=== PATIENT | male | born 1940 | race Two or more races ===

== ENCOUNTER 2018-06-11 11:38 | Inpatient (IN) | payer OTHER ==
[2018-06-11 11:47] VITALS: BMI 37.5
--- NOTE | 2018-06-11 11:56 | PDOC ---
History of Present Illness - General Chief Complaint: Shortness of Breath Stated Complaint: ASTHMA Time Seen by Provider: 06/11/18 11:55 - History of Present Illness Initial Comments: 06/11/18 12:17 The patient is a 77 year old male with a history of asthma and HTN who presents for evaluation of shortness of breath. The patient reports a 2 week history of shortness of breath at rest with worsening dyspnea on exertion. He states that he cannot walk a few feet without getting short of breath prompting his presentation to the ED for further evaluation. He states that he has been using his inhaler without any improvement in his symptoms. He denies similar symptoms in the past. He reports an associated non-productive cough but otherwise denies fevers, chills, chest pain, nausea, vomiting, abdominal pain, lower extremity swelling, or changes with urination or bowel movements. Past History - Past Medical History Allergies/Adverse Reactions: Allergies Allergy/AdvReac Type Severity Reaction Status Date / Time No Known Allergies Allergy Verified 06/11/18 11:40 - Suicide/Smoking/Psychosocial Hx Smoking History: Never smoked Review of Systems - Review of Systems Comments:: 06/11/18 12:21 Constitutional: No fevers, chills, fatigue, malaise HEENT: No Rhinorrhea, nasal congestion, visual changes Cardiovascular: No chest pain, syncope, palpitations, lightheadedness Respiratory: SOB, Cough. No Hemoptysis, Gastrointestinal: No Abdominal pain, Nausea, Vomiting, Constipation, Diarrhea, Melena Genitourinary: No Dysuria, Frequency, Urgency, Hesitancy, Hematuria, Flank pain Musculoskeletal: No Myalgia, arthralgia Skin: No rashes, itching, bruising, pallor Neurologic: No Headache, Dizziness, Numbness, Weakness, or Tingling Psychiatric: No Hallucinations. No SI or HI *Physical Exam - Vital Signs Last Vital Signs Temp Pulse Resp BP Pulse Ox 98.6 F 75 22 H 171/100 H 99 06/11/18 11:45 06/11/18 11:45 06/11/18 11:45 06/11/18 11:45 06/11/18 11:45 - Physical Exam Comments: 06/11/18 12:21 General Appearance: Nourished. No Apparent Distress HEENT: No Pharyngeal Erythema, Tonsillar Exudate, Tonsillar Erythema Neck: No Cervical Lymphadenopathy Respiratory/Chest: Lungs Clear, Mild diffuse end expiratory wheezing noted on exam. No Crackles, Rales, Rhonchi, Cardiovascular: Regular Rhythm, Regular Rate. No Murmur, Gallops, Rubs Gastrointestinal/Abdominal: Normal Bowel Sounds, Soft. No Guarding, Rebound, Tenderness Musculoskeletal: No CVA Tenderness Extremity: Normal Capillary Refill Integumentary: Normal Color, Dry, Warm Neurologic: Fully Oriented, Alert, Normal Mood/Affect, Normal Response, Heart Score/ECG Review #1 ECG reviewed & interpreted by me at: 12:51 General ECG Interpretation: Sinus Rhythm, Normal Rate, No acute ischemic changes 06/11/18 12:51 HR 92 QRS 152 QTc 549 Right bundle branch block Left posterior fasicular block ED Treatment Course - LABORATORY CBC & Chemistry Diagram: 06/11/18 12:43 06/11/18 12:43 Medical Decision Making - Medical Decision Making 06/11/18 12:22 The patient is a 77 year old male with a history of asthma and HTN who presents for evaluation of shortness of breath. Differential includes but is not limited to: COPD exacerbation, Asthma exacerbation, CHF, ACS, Pneumonia, Infectious, Metabolic Derangement. Given the patient's history and physical exam, we will obtain a cbc, cmp, troponin, bnp, ekg, chest plain film to evaluate further for possible etiologies. We will treat the patient with duonebs and solumedrol in the meantime and continue to monitor and reassess while here in the ED. 06/11/18 15:23 CBC, cmp are unremarkable. Troponin is 0.04. BNP is elevated to 3100. Chest plain film is unremarkable. We believe the patient requires admission for further work up and management as well as cardiology consultation. We discussed the case with Dr. Rizvi who accepted the patient for admission. *DC/Admit/Observation/Transfer Diagnosis at time of Disposition: Shortness of breath, Dyspnea on exertion - Discharge Dispostion Condition at time of disposition: Stable Decision to Admit order: Yes - Referrals - Patient Instructions - Post Discharge Activity
[2018-06-11] MEDS ORDERED: ALBUTEROL SO4 2.5/IPRATROPIUM 0.5 INH SOL 3 ML VIAL.NEB. NEB ONE ×3 (12:08→13:11)
[2018-06-11 12:49] LABS: BASO % 1.8 % (0-2.0); EOS % 4.3 % (0-4.5); HEMATOCRIT 42.3 % (35.4-49); HEMOGLOBIN 13.7 GM/dL (11.7-16.9); LYMPH % 33.4 % (8-40); MCH 26.3 pg (25.7-33.7); MCHC 32.3 g/dl (32.0-35.9); MEAN CELL VOLUME 81.4 fl (80-96); MEAN PLT VOLUME 10.2 fl (7.5-11.1); MONO % 10.8 % (3.8-10.2); NEUT % 49.7 % (42.8-82.8); PLATELET COUNT 244 K/MM3 (134-434); RDW 15.3 % (11.9-15.9)
[2018-06-11] MEDS ORDERED: methylPREDNISolone NA SUCC 125 MG/2 ML VIAL IVPUSH ONE (12:57)
[2018-06-11 13:07] LABS: VENOUS PH 7.42 (7.32-7.42)
[2018-06-11] MEDS ORDERED: methylPREDNISolone NA SUCC 125 MG/2 ML VIAL ONE (13:12)
[2018-06-11 13:15] LABS: ALBUMIN 3.6 g/dl (3.4-5.0); ALK PHOS 84 U/L (45-117); ANION GAP 6 MMOL/L (8-16); BILIRUBIN,TOTAL 1.2 mg/dL (0.2-1); BLOOD UREA NITROGEN 12 mg/dL (7-18); CALCIUM 8.5 mg/dL (8.5-10.1); CHLORIDE 108 mmol/L (98-107); CO2 26 mmol/L (21-32); GLUCOSE,RANDOM 102 mg/dL (74-106); N-TERMINAL BNP 3104.7 pg/ml (5-450); POTASSIUM 4.4 mmol/L (3.5-5.1); SGOT/AST 31 U/L (15-37); SGPT/ALT 51 U/L (13-61); SODIUM 140 mmol/L (136-145); TOT PROT 6.9 g/dl (6.4-8.2)
--- NOTE | 2018-06-11 13:43 | PDOC ---
Attending Attestation - Medical Decision Making 06/11/18 14:04 Imaging: Chest PA & LAT Reported by: Dr. Moody Impression: No acute pathology. Mild hyperaeration. Large heart. No prior for comparison <Ebony Dong - Last Filed: 06/11/18 14:04> - Resident Resident Name: German Issa - ED Attending Attestation I have performed the following: I have examined & evaluated the patient, The case was reviewed & discussed with the resident, I agree w/resident's findings & plan - HPI HPI: 06/11/18 14:05 The patient is a 77 year old male with a history of asthma and HTN who presents for evaluation of shortness of breath and worsening dyspnea on exertion for the past two weeks. The patient reports he cannot walk a couple steps without becoming short of breath. Patient states he went to a clinic recently and was prescribed an inhaler without any improvement. The patient admits to nonproductive cough but denies chest pain, headache and dizziness. Denies fever, chills, nausea, vomit, diarrhea and constipation. Denies dysuria, frequency, urgency and hematuria. Allergies: NKA Past surgical history: None reported. Social history: No reported alcohol, drug or cigarette use. PCP: Dr. Kyler Riggs - Physicial Exam PE: 06/11/18 14:05 NAD, well appearing, MMM, nl conjunctiva, anicteric; neck supple. no jvd. + bilateral diffuse wheezing. no respiratory distress. RRR, abdomen soft nontender. GOTTI x4, no focal neuro deficits. 2+ pretibial peripheral edema. normal color for ethnicity, WWP. - Medical Decision Making 06/11/18 13:43 I, Caterina Yanes MD, attest that this document has been prepared under my direction and personally reviewed by me in its entirety. I further attest, that it accurately reflects all work, treatment, procedures and medical decision -making performed by me. Bobby 77 year old male with a history of asthma and HTN who presents for evaluation of shortness of breath with exertion x 2 weeks. DDx. asthma, CHF, pulmonary edema, heart failure, ACS, pleurisy, metabolic derangements, viral syndrome, bronchitis, pneumonia. Vital signs reviewed, mild tachypnea, but no overt respiratory distress, normal sats on RA Prior notes reviewed, including admissions, discharges and consultations. laboratory results and imaging reviewed, basic labs and lytes wnl, notable for neg trops, elevated BNP >3000, no priors. VBG normal, no acid base derangements. CXR_cardiomegaly, no pulmonary edema or infiltrate EKG PACS, sinus rhythm, left posterior fascicular block, P waves in variable morphology. no interval abnormalities, narrow QRS, ST segments and morphology normal. Nonspecific T wave abnormalities ED course: no acute events, remained stable and well appearing. however, was diffusely wheezing, given duonebs and IV steroids. no abx for now, no fevers. Admit for GARCIA workup, eval for cardiomegaly, formal comprehensive echo, new onset heart failure with findings and abnormal EKG. Tele monitoring, IP cards cs. Discussed results and management plan with pt and family member at bedside, agree with impression and plan admit to Dr Riggs/Dr Rizvi service. 06/11/18 15:07 <Caterina Yanes - Last Filed: 06/11/18 15:08> Heart Score/ECG Review - ECG Impressions Comment:: 06/11/18 14:09 EKG PACS, sinus rhythm, left posterior fascicular block, P waves in variable morphology. no interval abnormalities, narrow QRS, ST segments and morphology normal. Nonspecific T wave abnormalities <Caterina Yanes - Last Filed: 06/11/18 15:08>
[2018-06-11] MEDS ORDERED: ACETAMINOPHEN 325 MG TABLET (FP) PO PRN (14:53)
[2018-06-11] MEDS ORDERED: ONDANSETRON *ODT* 4 MG TABLET SL PRN (14:53)
[2018-06-11] MEDS ORDERED: ALBUTEROL SO4 2.5/IPRATROPIUM 0.5 INH SOL 3 ML VIAL.NEB. NEB PRN (14:53)
--- NOTE | 2018-06-11 16:27 | CON.CARD ---
Consult Consult Specialty:: Cardiology - History of Present Illness Chief Complaint: SOB History of Present Illness: 77 M asthma and HTn w 10 days of dyspnea cough with clear phlegm and orthopnea. Admitted with unresolved symptoms. No chest pain or palpitations. Symptoms improved with nebs CXR shows cardiomegally and has elevated BNP - History Source History Provided By: Patient Limitations to Obtaining History: No Limitations - Past Medical History Cardio/Vascular: Yes: HTN Pulmonary: Yes: Asthma - Smoking History Smoking history: Never smoked Home Medications - Allergies Allergies/Adverse Reactions: Allergies Allergy/AdvReac Type Severity Reaction Status Date / Time No Known Allergies Allergy Verified 06/11/18 11:40 Review of Systems - Review of Systems Constitutional: reports: Fever, Loss of Appetite HENT: reports: No Symptoms Neck: reports: No Symptoms Cardiovascular: reports: Shortness of Breath Respiratory: reports: Cough, Exercise Intolerance, SOB, SOB on Exertion Gastrointestinal: reports: No Symptoms Genitourinary: reports: No Symptoms Vital Signs: Vital Signs Temperature 98.6 F 06/11/18 11:45 Pulse Rate 75 06/11/18 11:45 Respiratory Rate 22 H 06/11/18 11:45 Blood Pressure 171/100 H 06/11/18 11:45 O2 Sat by Pulse Oximetry (%) 99 06/11/18 11:45 Constitutional: Yes: Well Nourished, No Distress, Calm Eyes: Yes: Conjunctiva Clear, EOM Intact HENT: Yes: Atraumatic, Normocephalic Neck: Yes: Supple, Trachea Midline Respiratory: Yes: Regular, CTA Bilaterally Gastrointestinal: Yes: Normal Bowel Sounds Cardiovascular: Yes: Regular Rate and Rhythm JVD: No Carotid Bruit: No Heart Sounds: Yes: S1, S2 Murmur: No: Systolic Murmur, Diastolic Murmur Edema: Yes Edema: LLE: Trace, RLE: Trace - Other Data Labs, Other Data: CBC, BMP 06/11/18 12:43 06/11/18 12:43 Troponin, BNP 06/11/18 12:43 Troponin I 0.04 B-Natriuretic Peptide 3104.7 H Troponin, BNP 06/11/18 12:43 Troponin I 0.04 B-Natriuretic Peptide 3104.7 H NSR RBBB fusion beats Imaging - Results Chest X-ray: Report Reviewed Problem List - Problems (1) Shortness of breath Code(s): R06.02 - SHORTNESS OF BREATH Assessment/Plan Prior HTN and asthma history. 10 days of dyspnea and orthopnea Exam with mild edema. On CXR noted CMG with clear lungs and elevated BNP level. Diurese with lasix 20mg qd Control HTN Echocardiogram [facility] on telem
[2018-06-11] MEDS ORDERED: LABETALOL HCL 5 MG/1 ML (100MG/20 ML VIAL) IVPUSH ONE (17:29)
[2018-06-11] MEDS ORDERED: LABETALOL HCL 5 MG/1 ML (200MG/40ML VIAL) IVPB ONE (17:32)
[2018-06-11] MEDS ORDERED: methylPREDNISolone NA SUCC 40 MG/1 ML VIAL ONE (17:35)
[2018-06-11] MEDS: methylPREDNISolone NA SUCC 40 MG/1 ML VIAL IVPUSH SCH (17:36)
[2018-06-11] MEDS: HEPARIN NA (PORCINE) 5,000 UNITS/ML 1ML VIAL SQ SCH (22:05)
[2018-06-12] MEDS: methylPREDNISolone NA SUCC 40 MG/1 ML VIAL IVPUSH SCH ×3 (03:00→17:49)
[2018-06-12] MEDS: FUROSEMIDE 40 MG/4 ML INJECTABLE VIAL IVPUSH SCH ×2 (05:47→14:50)
[2018-06-12] MEDS ORDERED: FUROSEMIDE 40 MG/4 ML INJECTABLE VIAL IVPUSH SCH (06:00)
[2018-06-12 09:50] LABS: HEMATOCRIT 43.1 % (35.4-49); HEMOGLOBIN 13.5 GM/dL (11.7-16.9); MCH 25.5 pg (25.7-33.7); MCHC 31.4 g/dl (32.0-35.9); MEAN PLT VOLUME 9.5 fl (7.5-11.1); PLATELET COUNT 236 K/MM3 (134-434); RBC 5.32 M/mm3 (4.00-5.60); RDW 15.3 % (11.9-15.9); WHITE BLOOD COUNT 5.9 K/mm3 (4.0-10.0)
[2018-06-12] MEDS ORDERED: PNEUMOC 13-VAL CONJ-DIP CRM/PF 0.5 ML DISP.SYRIN IM ONE (10:00)
[2018-06-12] MEDS: HEPARIN NA (PORCINE) 5,000 UNITS/ML 1ML VIAL SQ SCH ×2 (10:43→22:01)
[2018-06-12 10:52] LABS: ALBUMIN 3.6 g/dl (3.4-5.0); ALK PHOS 83 U/L (45-117); ANION GAP 9 MMOL/L (8-16); BILIRUBIN,TOTAL 1.1 mg/dL (0.2-1); BLOOD UREA NITROGEN 14 mg/dL (7-18); CALCIUM 8.8 mg/dL (8.5-10.1); CHLORIDE 105 mmol/L (98-107); CHOLESTEROL 165 mg/dL (50-200); CO2 25 mmol/L (21-32); CREATININE 0.9 mg/dL (0.55-1.3); GLUCOSE,RANDOM 137 mg/dL (74-106); HDL CHOLESTEROL 53 mg/dL (40-60); POTASSIUM 4.7 mmol/L (3.5-5.1); SGOT/AST 26 U/L (15-37); SGPT/ALT 47 U/L (13-61); SODIUM 139 mmol/L (136-145); TOT PROT 7.1 g/dl (6.4-8.2); TRIGLYCERIDES 56 mg/dL (0-150)
--- NOTE | 2018-06-12 11:01 | PN ---
Progress Note (short form) - Note Progress Note: PULMONARY CONSULTATION DICTATED 06/12/18 IMP DYSPNEA ASTHMATIC BRONCHITIS CHF HTN LIKELY OSAS PLAN CONTINUE MEDROL INHALED BRONCHODILATORS LASIX ECHO O2 NEEDED SLEEP SCREEN PFTS OUTPATIENT DVT PROPHYLAXIS DR MURDOCK Problem List - Problems (1) CHF (congestive heart failure) Code(s): I50.9 - HEART FAILURE, UNSPECIFIED (2) Dyspnea on exertion Code(s): R06.09 - OTHER FORMS OF DYSPNEA (3) Shortness of breath Code(s): R06.02 - SHORTNESS OF BREATH (4) Asthmatic bronchitis Code(s): J45.909 - UNSPECIFIED ASTHMA, UNCOMPLICATED (5) Obesity Code(s): E66.9 - OBESITY, UNSPECIFIED (6) HTN (hypertension) Code(s): I10 - ESSENTIAL (PRIMARY) HYPERTENSION
--- NOTE | 2018-06-12 11:11 | EKG ---
Test Reason : Blood Pressure : / mmHG Vent. Rate : 092 BPM Atrial Rate : 092 BPM P-R Int : 206 ms QRS Dur : 152 ms QT Int : 444 ms P-R-T Axes : 052 115 014 degrees QTc Int : 549 ms SINUS RHYTHM WITH FREQUENT PREMATURE VENTRICULAR COMPLEXES AND PREMATURE ATRIAL COMPLEXES RIGHT BUNDLE BRANCH BLOCK LEFT POSTERIOR FASCICULAR BLOCK BIFASCICULAR BLOCK INFERIOR INFARCT , AGE UNDETERMINED ABNORMAL ECG WHEN COMPARED WITH ECG OF 22-JUN-2010 09:31, PREMATURE VENTRICULAR COMPLEXES ARE NOW PRESENT PREMATURE ATRIAL COMPLEXES ARE NOW PRESENT (RBBB AND LEFT POSTERIOR FASCICULAR BLOCK) IS NOW PRESENT Confirmed by SORAIDA VO MD ([id number]) on 06/12/2018 11:11:21 AM Referred By: Confirmed By:SORAIDA VO MD
--- NOTE | 2018-06-12 13:00 | CONS ---
DATE OF CONSULTATION: 06/12/2018 REFERRING PHYSICIAN: Marissa Rizvi MD The patient is a 77-year-old male with a past medical history of hypertension, nonsmoker, admitted to [facility] with a complaint of shortness of breath. The patient states, approximately 2 weeks ago, he started to feel shortness of breath at rest as well as with exertion. He also complains of a cough, nonproductive, associated with wheezing. He, apparently, went to his doctor, who gave him an inhaler, which is not offered any improvement. He presented to the emergency room, as above. He denied any chest pain, nausea, vomiting, or diaphoresis. He denies any fevers or chills. On admission, he was noted to have an elevated BNP. He was administered Lasix. He was also started on inhaled bronchodilators with steroids with good clinical response. He is a nonsmoker. He denies any history of occupational exposures to chemicals or fumes. There is no history of recent travel. There is no history of respiratory failure in the past requiring ventilatory support. He denies any hemoptysis or chest pain. PAST MEDICAL HISTORY: Again, includes hypertension. REVIEW OF SYSTEMS: Positive shortness of breath, positive cough, positive wheezing. No chest pain, no palpitations, no nausea, no vomiting, no abdominal pain. CURRENT MEDICATIONS: Solu-Medrol 40 q.8; Tylenol; heparin; DuoNeb; and Lasix. PHYSICAL EXAMINATION: General: The patient is an obese male, awake, alert, in no acute distress. Vital Signs: He is afebrile. Blood pressure is 147/73, respiratory rate is 20 , O2 saturation is 97%. HEENT: His head is normocephalic, atraumatic. Neck: Supple. Heart: Regular, S1, S2. Chest: Few scattered wheezes bilaterally. Abdomen: Soft. Bowel sounds are positive. Extremities: No cyanosis, edema. LABORATORIES: BUN 12, creatinine 1.0. Hemoglobin A1c is 6.4. Bilirubin is 1.2. BNP is 3104. Venous blood gas pH 7.42, pCO2 of 37, pO2 of 132. Chemistries: WBC is 5.9, hemoglobin 13.5, hematocrit 43.1 with a platelet count of 236,000. Chest x-ray reveals cardiomegaly, but no acute infiltrates or effusions. IMPRESSION: Dyspnea, cough likely secondary to multiple factors. 1. Possible mild asthmatic bronchitis secondary to possible upper respiratory infection. 2. Congestive heart failure, as noted by elevated BNP. 3. Hypertension. 4. 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 SUMEET MURDOCK M.D. PASCALE/[id number] MTDD
--- NOTE | 2018-06-12 13:38 | PN ---
Progress Note, Physician Chief Complaint: Telem Frequent VPC, NSVT and couplets, NSR Feeling better. History of Present Illness: 77 M asthma and HTn w 10 days of dyspnea cough with clear phlegm and orthopnea. Admitted with unresolved symptoms. No chest pain or palpitations. Symptoms improved with nebs CXR shows cardiomegally and has elevated BNP - Current Medication List Current Medications: Active Medications Acetaminophen (Tylenol -) 650 mg PO Q6H PRN PRN Reason: PAIN OR FEVER Albuterol/Ipratropium (Duoneb -) 1 amp NEB Q6H PRN PRN Reason: SHORTNESS OF BREATH Furosemide (Lasix Injection -) 20 mg IVPUSH BID@0600,1400 [facility] Last Admin: 06/12/18 05:47 Dose: 20 mg Heparin Sodium (Porcine) (Heparin -) 5,000 unit SQ BID [facility] Last Admin: 06/12/18 10:43 Dose: 5,000 unit Methylprednisolone Sodium Succinate (Solu-Medrol -) 40 mg IVPUSH Q8H-IV [facility] Last Admin: 06/12/18 10:43 Dose: 40 mg Ondansetron HCl (Zofran Odt -) 4 mg SL Q6H PRN PRN Reason: NAUSEA AND/OR VOMITING - Objective Vital Signs: Vital Signs Temperature 98.1 F 06/12/18 05:49 Pulse Rate 77 06/12/18 05:49 Respiratory Rate 20 06/12/18 09:00 Blood Pressure 147/73 06/12/18 05:49 O2 Sat by Pulse Oximetry (%) 97 06/12/18 09:00 Constitutional: Yes: Well Nourished, No Distress, Calm Eyes: Yes: Conjunctiva Clear, EOM Intact HENT: Yes: Atraumatic, Normocephalic Neck: Yes: Supple, Trachea Midline Cardiovascular: Yes: Regular Rate and Rhythm Respiratory: Yes: Regular, Wheezes Gastrointestinal: Yes: Normal Bowel Sounds, Soft Edema: No Labs: CBC, BMP 06/12/18 09:35 06/12/18 09:35 Problem List - Problems (1) Shortness of breath Code(s): R06.02 - SHORTNESS OF BREATH Assessment/Plan Prior HTN and asthma history. 10 days of dyspnea and orthopnea Exam with mild edema. On CXR noted CMG with clear lungs and elevated BNP level. Diurese with lasix 20mg qd Echocardiogram tomorrow continue to [facility] on telem. will cOnsider ischemia eval.
--- NOTE | 2018-06-12 14:28 | HP ---
Admitting History and Physical - Primary Care Physician PCP: Marissa Rizvi - Admission Chief Complaint: DYSPNEA/COUGH/CHEST PAIN History of Present Illness: The patient is a 77 year old male with a history of asthma and HTN who presents for evaluation of shortness of breath. The patient reports a 2 week history of shortness of breath at rest with worsening dyspnea on exertion. He states that he cannot walk a few feet without getting short of breath prompting his presentation to the ED for further evaluation. He states that he has been using his inhaler without any improvement in his symptoms. He denies similar symptoms in the past. He reports an associated non-productive cough but otherwise denies fevers, chills, chest pain, nausea, vomiting, abdominal pain, lower extremity swelling, or changes with urination or bowel movements. History Source: Patient, Medical Record Limitations to Obtaining History: Language Barrier - Past Medical History Cardiovascular: Yes: HTN Pulmonary: Yes: Asthma - Smoking History Smoking history: Never smoked - Alcohol/Substance Use Hx Alcohol Use: No Home Medications - Allergies Allergies/Adverse Reactions: Allergies Allergy/AdvReac Type Severity Reaction Status Date / Time No Known Allergies Allergy Verified 06/11/18 11:40 Review of Systems - Review of Systems Constitutional: reports: Weakness Eyes: reports: No Symptoms HENT: reports: No Symptoms Neck: reports: No Symptoms Cardiovascular: reports: Chest Pain, Palpitations, Shortness of Breath Respiratory: reports: Cough, Exercise Intolerance, SOB, SOB on Exertion Gastrointestinal: reports: No Symptoms Genitourinary: reports: No Symptoms Breasts: reports: No Symptoms Reported Musculoskeletal: reports: No Symptoms Integumentary: reports: No Symptoms Neurological: reports: No Symptoms Endocrine: reports: No Symptoms Hematology/Lymphatic: reports: No Symptoms Psychiatric: reports: No Symptoms Physical Examination Vital Signs: Vital Signs Temperature 98.3 F 06/12/18 14:00 Pulse Rate 90 06/12/18 14:00 Respiratory Rate 20 06/12/18 14:00 Blood Pressure 136/80 06/12/18 14:00 O2 Sat by Pulse Oximetry (%) 97 06/12/18 09:00 Constitutional: Yes: Mild Distress Eyes: Yes: WNL HENT: Yes: WNL Neck: Yes: WNL Cardiovascular: Yes: WNL Respiratory: Yes: Cough, On Nasal O2 Gastrointestinal: Yes: WNL Renal/: Yes: WNL Musculoskeletal: Yes: WNL Extremities: Yes: WNL Edema: No Peripheral Pulses WNL: Yes Integumentary: Yes: WNL Wound/Incision: Yes: Clean/Dry Neurological: Yes: WNL ...Motor Strength: WNL Psychiatric: Yes: WNL Labs: CBC, BMP 06/12/18 09:35 06/12/18 09:35 Imaging - Results Chest X-ray: Image Reviewed Problem List - Problems (1) Asthmatic bronchitis Code(s): J45.909 - UNSPECIFIED ASTHMA, UNCOMPLICATED (2) CHF (congestive heart failure) Code(s): I50.9 - HEART FAILURE, UNSPECIFIED (3) Dyspnea on exertion Code(s): R06.09 - OTHER FORMS OF DYSPNEA (4) HTN (hypertension) Code(s): I10 - ESSENTIAL (PRIMARY) HYPERTENSION (5) Obesity Code(s): E66.9 - OBESITY, UNSPECIFIED (6) Shortness of breath Code(s): R06.02 - SHORTNESS OF BREATH Assessment/Plan 02 SUPPORT NEBS LASIX IV ECHO IN AM TO EVALUATE EF% AND TYPE OF HEART FAILURE OOB TO CHAIR DVT PROPHYLAXIS CARDIO/PULM EVAL APPRECIATED
[2018-06-12] MEDS ORDERED: guaiFENesin/D-METHORPHAN HB 10 ML UNIT-DOSE CUPS PO ONE (20:43)
[2018-06-13] MEDS: methylPREDNISolone NA SUCC 40 MG/1 ML VIAL IVPUSH SCH ×3 (03:22→21:30)
[2018-06-13] MEDS: FUROSEMIDE 40 MG/4 ML INJECTABLE VIAL IVPUSH SCH ×2 (05:37→13:50)
[2018-06-13] MEDS: HEPARIN NA (PORCINE) 5,000 UNITS/ML 1ML VIAL SQ SCH ×2 (09:06→21:30)
[2018-06-13] MEDS ORDERED: LISINOPRIL 5 MG TABLET (FP) PO SCH ×2 (10:00→10:53)
--- NOTE | 2018-06-13 10:57 | PN ---
Progress Note, Physician Chief Complaint: patient seen and examined awaiiting echo says breathing is better on iv lasix and medrol BP elevated - Current Medication List Current Medications: Active Medications Acetaminophen (Tylenol -) 650 mg PO Q6H PRN PRN Reason: PAIN OR FEVER Albuterol/Ipratropium (Duoneb -) 1 amp NEB Q6H PRN PRN Reason: SHORTNESS OF BREATH Last Admin: 06/12/18 20:52 Dose: 1 amp Furosemide (Lasix Injection -) 20 mg IVPUSH BID@0600,1400 [facility] Last Admin: 06/13/18 05:37 Dose: 20 mg Heparin Sodium (Porcine) (Heparin -) 5,000 unit SQ BID [facility] Last Admin: 06/13/18 09:06 Dose: 5,000 unit Methylprednisolone Sodium Succinate (Solu-Medrol -) 40 mg IVPUSH Q8H-IV [facility] Last Admin: 06/13/18 09:06 Dose: 40 mg Ondansetron HCl (Zofran Odt -) 4 mg SL Q6H PRN PRN Reason: NAUSEA AND/OR VOMITING - Objective Vital Signs: Vital Signs Temperature 98 F 06/13/18 09:10 Pulse Rate 94 H 06/13/18 09:10 Respiratory Rate 18 06/13/18 09:10 Blood Pressure 152/100 06/13/18 09:10 O2 Sat by Pulse Oximetry (%) 97 06/12/18 22:00 Constitutional: Yes: Calm Cardiovascular: Yes: Regular Rate and Rhythm, S1, S2 Respiratory: Yes: Diminished Gastrointestinal: Yes: Normal Bowel Sounds, Soft Edema: No Neurological: Yes: Alert, Oriented Labs: CBC, BMP 06/12/18 09:35 06/12/18 09:35 Problem List - Problems (1) Asthmatic bronchitis Assessment/Plan: bronchodilators taper medrol PFT as outpatient dvt ppx Code(s): J45.909 - UNSPECIFIED ASTHMA, UNCOMPLICATED (2) CHF (congestive heart failure) Assessment/Plan: iv lasix echo prinivil 10mg start coreg 3.125mg bid Code(s): I50.9 - HEART FAILURE, UNSPECIFIED (3) HTN (hypertension) Assessment/Plan: prinvil dose increase will start beta cuong as well Code(s): I10 - ESSENTIAL (PRIMARY) HYPERTENSION
--- NOTE | 2018-06-13 11:04 | PN ---
Progress Note, Physician History of Present Illness: PULMONARY ALERT,FEELING BETTER,LESS DYSPNEIC,LESS COUGH, SLEEP SCREEN AHI 46 C/W SEVERE FESTUS - Current Medication List Current Medications: Active Medications Acetaminophen (Tylenol -) 650 mg PO Q6H PRN PRN Reason: PAIN OR FEVER Albuterol/Ipratropium (Duoneb -) 1 amp NEB Q6H PRN PRN Reason: SHORTNESS OF BREATH Last Admin: 06/12/18 20:52 Dose: 1 amp Furosemide (Lasix Injection -) 20 mg IVPUSH BID@0600,1400 [facility] Last Admin: 06/13/18 05:37 Dose: 20 mg Heparin Sodium (Porcine) (Heparin -) 5,000 unit SQ BID [facility] Last Admin: 06/13/18 09:06 Dose: 5,000 unit Lisinopril (Prinivil) 10 mg PO DAILY [facility] Methylprednisolone Sodium Succinate (Solu-Medrol -) 40 mg IVPUSH BID [facility] Ondansetron HCl (Zofran Odt -) 4 mg SL Q6H PRN PRN Reason: NAUSEA AND/OR VOMITING - Objective Vital Signs: Vital Signs Temperature 98 F 06/13/18 09:10 Pulse Rate 94 H 06/13/18 09:10 Respiratory Rate 18 06/13/18 09:10 Blood Pressure 152/100 06/13/18 09:10 O2 Sat by Pulse Oximetry (%) 97 06/13/18 09:00 Constitutional: Yes: Well Nourished, Calm, Obese Eyes: Yes: WNL HENT: Yes: WNL Neck: Yes: WNL Cardiovascular: Yes: Regular Rate and Rhythm, S1, S2 Respiratory: Yes: Wheezes (FEW WHEEZES) Gastrointestinal: Yes: Normal Bowel Sounds, Soft Extremities: Yes: WNL Edema: No Problem List - Problems (1) CHF (congestive heart failure) Code(s): I50.9 - HEART FAILURE, UNSPECIFIED (2) Dyspnea on exertion Code(s): R06.09 - OTHER FORMS OF DYSPNEA (3) Shortness of breath Code(s): R06.02 - SHORTNESS OF BREATH (4) Asthmatic bronchitis Code(s): J45.909 - UNSPECIFIED ASTHMA, UNCOMPLICATED (5) Obesity Code(s): E66.9 - OBESITY, UNSPECIFIED (6) HTN (hypertension) Code(s): I10 - ESSENTIAL (PRIMARY) HYPERTENSION Assessment/Plan IMP DYSPNEA ASTHMATIC BRONCHITIS CHF HTN OSAS AHI 45 ON SLEEP SCREEN PLAN STEROID TAPER INHALED BRONCHODILATORS LASIX ECHO O2 NEEDED PFTS OUTPATIENT DVT PROPHYLAXIS FORMAL SLEEP STUDIES OUTPATIENT DR MURDOCK Problem List - Problems (1) CHF (congestive heart failure) Code(s): I50.9 - HEART FAILURE, UNSPECIFIED (2) Dyspnea on exertion Code(s): R06.09 - OTHER FORMS OF DYSPNEA (3) Shortness of breath Code(s): R06.02 - SHORTNESS OF BREATH (4) Asthmatic bronchitis Code(s): J45.909 - UNSPECIFIED ASTHMA, UNCOMPLICATED (5) Obesity Code(s): E66.9 - OBESITY, UNSPECIFIED (6) HTN (hypertension) Code(s): I10 - ESSENTIAL (PRIMARY) HYPERTENSION
--- NOTE | 2018-06-13 14:55 | ECHO ---
Name: LARISSA FLEMING Exam:Adult Echocardiogram Study Date: 06/13/2018 01:30 PM Age: 77 yrs Reason For Study: CHECK EF Height: 67 in Weight: 240 lb BSA: 2.2 m2 MMode/2D Measurements & Calculations IVSd: 1.0 cm Ao root diam: 3.2 cm LVIDd: 4.0 cm LVIDs: 3.2 cm LVPWd: 2.2 cm EDV(Teich): 70.9 ml LVOT diam: 2.3 cm ESV(Teich): 40.6 ml Doppler Measurements & Calculations PI end-d artem: 233.0 cm/sec Med Peak E' Artem: 5.7 cm/sec Lat Peak E' Artem: 6.6 cm/sec Procedure A complete two-dimensional transthoracic echocardiogram was performed (2D, M-mode, Doppler and color flow Doppler). Technically limited study. Left Ventricle The left ventricle is normal in size. Left ventricular systolic function is moderately reduced. Eject ion Fraction = 40-45%. There is moderate global hypokinesis of the left ventricle. Right Ventricle The right ventricle is normal size. The right ventricular systolic function is normal. RV systolic TD I is 14 cm/s. Atria The left atrial size is normal. Right atrial size is normal. Mitral Valve The mitral valve is normal in structure and function. There is no mitral regurgitation noted. Tricuspid Valve The tricuspid valve is normal in structure and function. There is mild tricuspid regurgitation. Aortic Valve The aortic valve is normal in structure and function. Trace aortic regurgitation. Pulmonic Valve The pulmonic valve is not well visualized. Great Vessels The aortic root is normal size. Pericardium/Pleura There is no pericardial effusion. Interpretation Summary Technically limited study The left ventricle is normal in size. Left ventricular systolic function is moderately reduced. There is moderate global hypokinesis of the left ventricle. Ejection Fraction = 40-45%. The right ventricular systolic function is normal. There is mild tricuspid regurgitation. Trace aortic regurgitation. There is no pericardial effusion. Previous study is not available for comparsion Kleber Amato MD 06/13/2018 02:54 PM
--- NOTE | 2018-06-13 15:57 | PN ---
Progress Note, Physician History of Present Illness: seen and examined today in nad. states he is feeling better, back to baseline. no further sob. - Current Medication List Current Medications: Active Medications Acetaminophen (Tylenol -) 650 mg PO Q6H PRN PRN Reason: PAIN OR FEVER Albuterol/Ipratropium (Duoneb -) 1 amp NEB Q6H PRN PRN Reason: SHORTNESS OF BREATH Last Admin: 06/12/18 20:52 Dose: 1 amp Carvedilol (Coreg -) 3.125 mg PO BID [facility] Furosemide (Lasix Injection -) 20 mg IVPUSH BID@0600,1400 [facility] Last Admin: 06/13/18 13:50 Dose: 20 mg Heparin Sodium (Porcine) (Heparin -) 5,000 unit SQ BID [facility] Last Admin: 06/13/18 09:06 Dose: 5,000 unit Lisinopril (Prinivil) 10 mg PO DAILY [facility] Methylprednisolone Sodium Succinate (Solu-Medrol -) 40 mg IVPUSH BID [facility] Ondansetron HCl (Zofran Odt -) 4 mg SL Q6H PRN PRN Reason: NAUSEA AND/OR VOMITING - Objective Vital Signs: Vital Signs Temperature 98.2 F 06/13/18 14:10 Pulse Rate 97 H 06/13/18 14:10 Respiratory Rate 18 06/13/18 14:10 Blood Pressure 153/75 06/13/18 14:10 O2 Sat by Pulse Oximetry (%) 97 06/13/18 09:00 Constitutional: Yes: No Distress, Calm Eyes: Yes: Conjunctiva Clear, EOM Intact HENT: Yes: Atraumatic, Normocephalic Neck: Yes: Supple, Trachea Midline Cardiovascular: Yes: Regular Rate and Rhythm, S1, S2. No: Bradycardia, Tachycardia, Pulse Irregular, Bruit, JVD, Gallop, Murmur, Rub, S3, S4, Varicosities Respiratory: Yes: Regular, Diminished. No: Rales, Rhonchi, Wheezes Gastrointestinal: Yes: Normal Bowel Sounds, Soft. No: Distention, Tenderness Extremities: Yes: WNL Edema: No Peripheral Pulses WNL: Yes Peripheral Pulses: Left Doralis Pedis: 2+, Right Dorsalis Pedis: 2+ Neurological: Yes: Alert, Oriented Psychiatric: Yes: Alert, Oriented Labs: CBC, BMP 06/12/18 09:35 06/12/18 09:35 - ....Imaging Chest X-ray: Report Reviewed, Image Reviewed EKG: Report Reviewed, Image Reviewed Other: Report Reviewed, Image Reviewed (tele-nsr, pvcs) Assessment/Plan Prior HTN and asthma history. 10 days of dyspnea and orthopnea Exam with mild edema. On CXR noted CMG with clear lungs and elevated BNP level. 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
[2018-06-13] MEDS: CARVEDILOL 6.25 MG TABLET (FP) PO SCH (21:30)
[2018-06-13] MEDS ORDERED: CARVEDILOL 3.125 MG TABLET (FP) PO SCH (22:00)
[2018-06-14] MEDS: FUROSEMIDE 40 MG/4 ML INJECTABLE VIAL IVPUSH SCH (05:29)
[2018-06-14 06:48] LABS: BASO % 0.1 % (0-2.0); HEMATOCRIT 44.7 % (35.4-49); HEMOGLOBIN 14.2 GM/dL (11.7-16.9); LYMPH % 12.7 % (8-40); MCH 25.9 pg (25.7-33.7); MCHC 31.8 g/dl (32.0-35.9); MEAN CELL VOLUME 81.4 fl (80-96); MEAN PLT VOLUME 10.4 fl (7.5-11.1); MONO % 5.4 % (3.8-10.2); NEUT % 81.8 % (42.8-82.8); PLATELET COUNT 272 K/MM3 (134-434); RDW 15.5 % (11.9-15.9)
[2018-06-14 07:21] LABS: ALBUMIN 3.3 g/dl (3.4-5.0); ALK PHOS 72 U/L (45-117); ANION GAP 9 MMOL/L (8-16); BILIRUBIN,TOTAL 0.9 mg/dL (0.2-1); BLOOD UREA NITROGEN 26 mg/dL (7-18); CALCIUM 8.3 mg/dL (8.5-10.1); CHLORIDE 106 mmol/L (98-107); CO2 25 mmol/L (21-32); GLUCOSE,RANDOM 125 mg/dL (74-106); POTASSIUM 4.5 mmol/L (3.5-5.1); SGOT/AST 34 U/L (15-37); SGPT/ALT 57 U/L (13-61); SODIUM 140 mmol/L (136-145); TOT PROT 6.7 g/dl (6.4-8.2)
[2018-06-14] MEDS ORDERED: PT OWN MED DRAWER 7, Y5N ONE (09:22)
--- NOTE | 2018-06-14 09:42 | PN ---
Progress Note, Physician History of Present Illness: seen and examined today in [facility]. no overnight events. no new complaints. - Current Medication List Current Medications: Active Medications Acetaminophen (Tylenol -) 650 mg PO Q6H PRN PRN Reason: PAIN OR FEVER Albuterol/Ipratropium (Duoneb -) 1 amp NEB Q6H PRN PRN Reason: SHORTNESS OF BREATH Last Admin: 06/12/18 20:52 Dose: 1 amp Carvedilol (Coreg -) 6.25 mg PO BID [facility] Last Admin: 06/13/18 21:30 Dose: 6.25 mg Furosemide (Lasix Injection -) 20 mg IVPUSH BID@0600,1400 [facility] Last Admin: 06/14/18 05:29 Dose: 20 mg Heparin Sodium (Porcine) (Heparin -) 5,000 unit SQ BID [facility] Last Admin: 06/13/18 21:30 Dose: 5,000 unit Lisinopril (Prinivil) 20 mg PO DAILY [facility] Methylprednisolone Sodium Succinate (Solu-Medrol -) 40 mg IVPUSH BID [facility] Last Admin: 06/13/18 21:30 Dose: 40 mg Ondansetron HCl (Zofran Odt -) 4 mg SL Q6H PRN PRN Reason: NAUSEA AND/OR VOMITING - Objective Vital Signs: Vital Signs Temperature 97.5 F L 06/14/18 05:00 Pulse Rate 88 06/14/18 05:00 Respiratory Rate 19 06/14/18 05:00 Blood Pressure 147/88 06/14/18 05:00 O2 Sat by Pulse Oximetry (%) 96 06/13/18 21:00 Constitutional: Yes: Well Nourished, No Distress, Calm Eyes: Yes: WNL, Conjunctiva Clear, EOM Intact, PERRL HENT: Yes: WNL, Atraumatic, Normocephalic Neck: Yes: WNL, Supple, Trachea Midline Cardiovascular: Yes: WNL, Regular Rate and Rhythm, S1, S2. No: Bradycardia, Tachycardia, Pulse Irregular, Bruit, JVD, Gallop, Murmur, Rub, S3, S4, Varicosities Respiratory: Yes: WNL, Regular, CTA Bilaterally. No: Rales, Rhonchi, Wheezes Gastrointestinal: Yes: WNL, Normal Bowel Sounds, Soft. No: Distention, Tenderness Musculoskeletal: Yes: WNL Extremities: Yes: WNL Edema: No Peripheral Pulses WNL: Yes Peripheral Pulses: Left Doralis Pedis: 2+, Right Dorsalis Pedis: 2+ Integumentary: Yes: WNL Neurological: Yes: WNL, Alert, Oriented, Cran Nerves II-XII Intact ...Motor Strength: WNL Psychiatric: Yes: WNL, Alert, Oriented Labs: CBC, BMP 06/14/18 05:30 06/14/18 05:30 - ....Imaging Chest X-ray: Report Reviewed, Image Reviewed EKG: Report Reviewed, Image Reviewed Other: Report Reviewed, Image Reviewed (tele-NSR, PVCs no sig arrhythmias) Assessment/Plan Prior HTN and asthma history. 10 days of dyspnea and orthopnea Exam with mild edema. On CXR noted CMG with clear lungs and elevated BNP level. Near euvolemic Transition to po Lasix today, can use 40mg po daily Echo 06/13/18 showed moderate global LV systolic dysfunction, no sig valvular abnl Given uncontrolled HTN and global nature of cardiomyopathy most likely this is a NICM due to HTN Increased Coreg and Lisinopril with improvement in HTN control Cont current medical regimen for now Fup nuclear stress test today to evaluate for ischemia If no sig ischemia on stress test today pt would be acceptable for discharge home with a plan for close outpatient fup and aggressive medical treatment for CHF If sig ischemia is seen will plan for transfer for cardiac cath.
--- NOTE | 2018-06-14 12:22 | PN ---
Progress Note, Physician Chief Complaint: SOB History of Present Illness: NAD, no SOB or chest pain walking in the hallway Had stress test done today-results pending - Current Medication List Current Medications: Active Medications Acetaminophen (Tylenol -) 650 mg PO Q6H PRN PRN Reason: PAIN OR FEVER Albuterol/Ipratropium (Duoneb -) 1 amp NEB Q6H PRN PRN Reason: SHORTNESS OF BREATH Last Admin: 06/12/18 20:52 Dose: 1 amp Atorvastatin Calcium (Lipitor -) 10 mg PO HS [facility] Carvedilol (Coreg -) 6.25 mg PO BID [facility] Last Admin: 06/13/18 21:30 Dose: 6.25 mg Furosemide (Lasix -) 40 mg PO DAILY [facility] Heparin Sodium (Porcine) (Heparin -) 5,000 unit SQ BID [facility] Last Admin: 06/13/18 21:30 Dose: 5,000 unit Lisinopril (Prinivil) 20 mg PO DAILY [facility] Methylprednisolone Sodium Succinate (Solu-Medrol -) 40 mg IVPUSH BID [facility] Last Admin: 06/13/18 21:30 Dose: 40 mg Ondansetron HCl (Zofran Odt -) 4 mg SL Q6H PRN PRN Reason: NAUSEA AND/OR VOMITING - Objective Vital Signs: Vital Signs Temperature 97.5 F L 06/14/18 05:00 Pulse Rate 88 06/14/18 05:00 Respiratory Rate 20 06/14/18 09:00 Blood Pressure 147/88 06/14/18 05:00 O2 Sat by Pulse Oximetry (%) 96 06/14/18 09:00 Constitutional: Yes: Well Nourished, No Distress, Calm, Obese Cardiovascular: Yes: Regular Rate and Rhythm Respiratory: Yes: Regular Gastrointestinal: Yes: Normal Bowel Sounds, Soft, Abdomen, Obese Musculoskeletal: Yes: WNL Extremities: Yes: WNL Edema: No Peripheral Pulses WNL: Yes Peripheral Pulses: Left Doralis Pedis: 2+, Right Dorsalis Pedis: 2+ Neurological: Yes: Alert, Oriented Psychiatric: Yes: Alert, Oriented Labs: CBC, BMP 06/14/18 05:30 06/14/18 05:30 Problem List - Problems (1) Asthmatic bronchitis Assessment/Plan: -Pulmonary consult -IV steroids-> d/c -Bronchodilators -Nasal o2 PRN Code(s): J45.909 - UNSPECIFIED ASTHMA, UNCOMPLICATED (2) CHF (congestive heart failure) Assessment/Plan: -IV furosemide -> PO furosemide 40 mg po daily -Cardiology on board -daily weight -Low sodium diet- NPO for now for stress test -RD consult Code(s): I50.9 - HEART FAILURE, UNSPECIFIED (3) Dyspnea on exertion Assessment/Plan: -Echo:06/13/18 showed moderate global LV systolic dysfunction, no sig valvular abnl -Seen by Pulmonary and cardiology -Spo2 okay on Room air -Bronchodilators -On IV steroids-> d/c -Stress test pending Code(s): R06.09 - OTHER FORMS OF DYSPNEA (4) Obesity Assessment/Plan: -RD consult -Encouraged weight loss Code(s): E66.9 - OBESITY, UNSPECIFIED (5) Diabetes Assessment/Plan: -A1c at 6.4 -unsure what medications he is on at home -started Januvia 50 mg po daily -Diabetic diet -RD consult -Encouraged weight loss -LDL 100 mg/dl-goal of <70 mg/dl, start atorvastatin 10 mg po daily Code(s): E11.9 - TYPE 2 DIABETES MELLITUS WITHOUT COMPLICATIONS Assessment/Plan see problem list Self ambulatory D/C home if stress test negative
[2018-06-14] MEDS: HEPARIN NA (PORCINE) 5,000 UNITS/ML 1ML VIAL SQ SCH ×2 (12:35→22:09)
[2018-06-14] MEDS: methylPREDNISolone NA SUCC 40 MG/1 ML VIAL IVPUSH SCH (12:35)
[2018-06-14] MEDS: LISINOPRIL 20 MG TABLET (FP) PO SCH (12:35)
[2018-06-14] MEDS: CARVEDILOL 6.25 MG TABLET (FP) PO SCH ×2 (12:36→22:09)
[2018-06-14] MEDS ORDERED: ATORVASTATIN CA 10 MG TABLET (FP) PO SCH (22:00)
[2018-06-15] MEDS ORDERED: sitaGLIPtin PHOSPHATE 50 MG TABLET PO SCH (07:00)
[2018-06-15] MEDS: LISINOPRIL 20 MG TABLET (FP) PO SCH (09:36)
[2018-06-15] MEDS: CARVEDILOL 6.25 MG TABLET (FP) PO SCH (09:36)
[2018-06-15] MEDS: HEPARIN NA (PORCINE) 5,000 UNITS/ML 1ML VIAL SQ SCH (09:36)
[2018-06-15 09:38] VITALS: BP 130/76; PULSE 73; TEMP 98
[2018-06-15] MEDS ORDERED: FUROSEMIDE 40 MG TABLET (FP) PO SCH (10:00)
--- NOTE | 2018-06-15 11:31 | PN ---
Progress Note, Physician History of Present Illness: PULMONARY ALERT COMFORTABLE,-CP,-SOB - Current Medication List Current Medications: Active Medications Acetaminophen (Tylenol -) 650 mg PO Q6H PRN PRN Reason: PAIN OR FEVER Albuterol/Ipratropium (Duoneb -) 1 amp NEB Q6H PRN PRN Reason: SHORTNESS OF BREATH Last Admin: 06/12/18 20:52 Dose: 1 amp Atorvastatin Calcium (Lipitor -) 10 mg PO HS [facility] Last Admin: 06/14/18 22:09 Dose: 10 mg Carvedilol (Coreg -) 6.25 mg PO BID [facility] Last Admin: 06/15/18 09:36 Dose: 6.25 mg Furosemide (Lasix -) 40 mg PO DAILY [facility] Last Admin: 06/15/18 09:36 Dose: 40 mg Heparin Sodium (Porcine) (Heparin -) 5,000 unit SQ BID [facility] Last Admin: 06/15/18 09:36 Dose: 5,000 unit Lisinopril (Prinivil) 20 mg PO DAILY [facility] Last Admin: 06/15/18 09:36 Dose: 20 mg Ondansetron HCl (Zofran Odt -) 4 mg SL Q6H PRN PRN Reason: NAUSEA AND/OR VOMITING Sitagliptin Phosphate (Januvia -) 50 mg PO DAILY@0700 [facility] Last Admin: 06/15/18 06:29 Dose: 50 mg - Objective Vital Signs: Vital Signs Temperature 98 F 06/15/18 09:37 Pulse Rate 73 06/15/18 09:37 Respiratory Rate 20 06/15/18 09:37 Blood Pressure 130/76 06/15/18 09:37 O2 Sat by Pulse Oximetry (%) 99 06/15/18 09:00 Constitutional: Yes: Calm, Obese Eyes: Yes: WNL HENT: Yes: WNL Neck: Yes: WNL Cardiovascular: Yes: Regular Rate and Rhythm, S1, S2 Respiratory: Yes: CTA Bilaterally Gastrointestinal: Yes: Normal Bowel Sounds, Soft Extremities: Yes: WNL Edema: No Labs: CBC, BMP Problem List - Problems (1) CHF (congestive heart failure) Code(s): I50.9 - HEART FAILURE, UNSPECIFIED (2) Dyspnea on exertion Code(s): R06.09 - OTHER FORMS OF DYSPNEA (3) Shortness of breath Code(s): R06.02 - SHORTNESS OF BREATH (4) Asthmatic bronchitis Code(s): J45.909 - UNSPECIFIED ASTHMA, UNCOMPLICATED (5) Obesity Code(s): E66.9 - OBESITY, UNSPECIFIED (6) HTN (hypertension) Code(s): I10 - ESSENTIAL (PRIMARY) HYPERTENSION Assessment/Plan IMP DYSPNEA IMPROVED ASTHMATIC BRONCHITIS CHF HTN OSAS AHI 46 ON SLEEP SCREEN PLAN PREDNISONE INHALED BRONCHODILATORS LASIX O2 NEEDED PFTS OUTPATIENT DVT PROPHYLAXIS FORMAL SLEEP STUDIES OUTPATIENT DR MURDOCK Problem List - Problems (1) CHF (congestive heart failure) Code(s): I50.9 - HEART FAILURE, UNSPECIFIED (2) Dyspnea on exertion Code(s): R06.09 - OTHER FORMS OF DYSPNEA (3) Shortness of breath Code(s): R06.02 - SHORTNESS OF BREATH (4) Asthmatic bronchitis Code(s): J45.909 - UNSPECIFIED ASTHMA, UNCOMPLICATED (5) Obesity Code(s): E66.9 - OBESITY, UNSPECIFIED (6) HTN (hypertension) Code(s): I10 - ESSENTIAL (PRIMARY) HYPERTENSION
--- NOTE | 2018-06-15 16:07 | PN ---
Progress Note, Physician History of Present Illness: seen and examined today in nad. feeling well no overnight events. no new complaints. - Objective Vital Signs: Vital Signs Temperature 98 F 06/15/18 09:37 Pulse Rate 73 06/15/18 09:37 Respiratory Rate 20 06/15/18 09:37 Blood Pressure 130/76 06/15/18 09:37 O2 Sat by Pulse Oximetry (%) 99 06/15/18 09:00 Constitutional: Yes: No Distress, Calm Eyes: Yes: Conjunctiva Clear, EOM Intact, PERRL HENT: Yes: Atraumatic, Normocephalic Neck: Yes: Supple, Trachea Midline Cardiovascular: Yes: Regular Rate and Rhythm, S1, S2. No: Bradycardia, Tachycardia, Pulse Irregular, Bruit, JVD, Gallop, Murmur, Rub, S3, S4, Varicosities Respiratory: Yes: Regular. No: Rales, Rhonchi, SOB, Wheezes Gastrointestinal: Yes: Normal Bowel Sounds, Soft. No: Distention, Tenderness Extremities: Yes: WNL Edema: No Peripheral Pulses WNL: Yes Neurological: Yes: Alert, Oriented Psychiatric: Yes: Alert, Oriented Labs: CBC, BMP 06/14/18 05:30 06/14/18 05:30 - ....Imaging Chest X-ray: Report Reviewed, Image Reviewed EKG: Report Reviewed, Image Reviewed Other: Report Reviewed, Image Reviewed (tele-nsr, pvcs) Assessment/Plan Prior HTN and asthma history. 10 days of dyspnea and orthopnea Exam with mild edema. On CXR noted CMG with clear lungs and elevated BNP level. Near euvolemic Cont Lasix 40mg po daily Echo 06/13/18 showed moderate global LV systolic dysfunction, no sig valvular abnl Given uncontrolled HTN and global nature of cardiomyopathy most likely this is a NICM due to HTN Increased Coreg and Lisinopril with improvement in HTN control Cont current medical regimen for now Nuclear stress test 06/14/18 showed no ischemia, LVEF 17% pt would be acceptable for discharge home with a plan for close outpatient fup and aggressive medical treatment for CHF will need aggressive medical rx and will consider cardiac cath as outpatient advised him to make an appointment to be seen by next week
== END 2018-06-15 15:04 | disposition home or self-care (01) | DRG 291 ==
LOC: JER 11:38 → JERBED 13:40 → OBSVTOIN 14:48 → J4W 20:08
PROVIDERS: ADMIT Family Medicine; ATTEND Family Medicine
DX: I11.0 Hypertensive heart disease with heart failure (principal); I50.21 Acute systolic (congestive) heart failure; I45.2 Bifascicular block; I43 Cardiomyopathy in diseases classified elsewhere; J45.909 Unspecified asthma, uncomplicated; E11.9 Type 2 diabetes mellitus without complications; E66.9 Obesity, unspecified; Z68.37 Body mass index [BMI] 37.0-37.9, adult; G47.33 Obstructive sleep apnea (adult) (pediatric)
CPT/HCPCS: 36415; 71046-TC-FY; 78452-TC; 80053; 80061; 82550; 82553; 82803; 83036; 83721; 83880; 84443; 84484; 85025; 85027; 90670; 93005; 93010; 93017; 93306-TC; 94640; 97116-GP; 97161-GP; 99283-25; A9502; G0378; J1644

== ENCOUNTER 2018-07-23 10:07 | Inpatient (IN) | payer OTHER ==
[2018-07-23 10:13] VITALS: BMI 29.5
--- NOTE | 2018-07-23 10:41 | PDOC ---
History of Present Illness - General Chief Complaint: Weakness Stated Complaint: WEAKNESS Time Seen by Provider: 07/23/18 10:40 - History of Present Illness Initial Comments: 78 year old male with a history of asthma, HTN, and diastolic heart failure presenting with 07/23/18 10:41 Past History - Past Medical History Allergies/Adverse Reactions: Allergies Allergy/AdvReac Type Severity Reaction Status Date / Time No Known Allergies Allergy Verified 07/23/18 10:13 Home Medications: Ambulatory Orders Acetaminophen [Tylenol .Regular Strength -] 650 mg PO Q6H PRN tablet 06/15/18 Atorvastatin Ca [Lipitor] 10 mg PO HS #30 tablet 06/15/18 Carvedilol [Coreg -] 6.25 mg PO BID #60 tablet 06/15/18 Furosemide [Lasix -] 40 mg PO DAILY #30 tablet 06/15/18 Lisinopril [Prinivil] 20 mg PO DAILY #30 tablet 06/15/18 Sitagliptin Phosphate [Januvia -] 50 mg PO DAILY@0700 #30 tablet 06/15/18 Asthma: Yes COPD: Yes HTN: Yes - Immunization History Immunization Up to Date: Yes - Suicide/Smoking/Psychosocial Hx Smoking History: Never smoked Hx Alcohol Use: No Drug/Substance Use Hx: No Substance Use Type: None *Physical Exam - Vital Signs Last Vital Signs Temp Pulse Resp BP Pulse Ox 98.3 F 125 H 18 153/103 H 99 07/23/18 10:10 07/23/18 10:10 07/23/18 10:10 07/23/18 10:10 07/23/18 10:10 Moderate Sedation - Procedure Monitoring Vital Signs: Procedure Monitoring Vital Signs Temperature 98.3 F 07/23/18 10:10 Pulse Rate 125 H 07/23/18 10:10 Respiratory Rate 18 07/23/18 10:10 Blood Pressure 153/103 H 07/23/18 10:10 O2 Sat by Pulse Oximetry (%) 99 07/23/18 10:10 *DC/Admit/Observation/Transfer - Referrals Referrals: Kyler Riggs [Primary Care Provider] - - Patient Instructions - Post Discharge Activity
--- NOTE | 2018-07-23 10:51 | PDOC ---
Attending Attestation - Resident Resident Name: Nicole Mendes - ED Attending Attestation I have performed the following: I have examined & evaluated the patient, The case was reviewed & discussed with the resident, I agree w/resident's findings & plan, Exceptions are as noted
[2018-07-23 11:04] LABS: BASO % 1.5 % (0-2.0); EOS % 5.2 % (0-4.5); HEMATOCRIT 40.3 % (35.4-49); HEMOGLOBIN 13.8 GM/dL (11.7-16.9); MCH 27.6 pg (25.7-33.7); MCHC 34.4 g/dl (32.0-35.9); MEAN CELL VOLUME 80.4 fl (80-96); MEAN PLT VOLUME 10.1 fl (7.5-11.1); MONO % 10.4 % (3.8-10.2); NEUT % 58.9 % (42.8-82.8); PLATELET COUNT 193 K/MM3 (134-434); RBC 5.01 M/mm3 (4.00-5.60); RDW 16.6 % (11.9-15.9); WHITE BLOOD COUNT 3.9 K/mm3 (4.0-10.0)
[2018-07-23 11:21] LABS: ALBUMIN 3.5 g/dl (3.4-5.0); ALK PHOS 88 U/L (45-117); ANION GAP 9 MMOL/L (8-16); BLOOD UREA NITROGEN 12 mg/dL (7-18); CALCIUM 8.6 mg/dL (8.5-10.1); CHLORIDE 106 mmol/L (98-107); CO2 25 mmol/L (21-32); GLUCOSE,RANDOM 110 mg/dL (74-106); POTASSIUM 3.8 mmol/L (3.5-5.1); SGOT/AST 34 U/L (15-37); SGPT/ALT 39 U/L (13-61); SODIUM 139 mmol/L (136-145); TOT PROT 6.5 g/dl (6.4-8.2)
--- NOTE | 2018-07-23 11:23 | PDOC ---
History of Present Illness - General Chief Complaint: Weakness Stated Complaint: WEAKNESS Time Seen by Provider: 07/23/18 10:40 History Source: Patient Exam Limitations: No Limitations - History of Present Illness Initial Comments: 78 yo M history CHF presents with progressively worsening SOB, recent cough, and swollen legs for past few days. Denies fever. No sputum production. No recent illness. Denies any dietary indiscretions. Has been taking his medications as prescribed. Past History - Past Medical History Allergies/Adverse Reactions: Allergies Allergy/AdvReac Type Severity Reaction Status Date / Time No Known Allergies Allergy Verified 07/23/18 10:13 Home Medications: Ambulatory Orders Acetaminophen [Tylenol .Regular Strength -] 650 mg PO Q6H PRN tablet 06/15/18 Atorvastatin Ca [Lipitor] 10 mg PO HS #30 tablet 06/15/18 Carvedilol [Coreg -] 6.25 mg PO BID #60 tablet 06/15/18 Furosemide [Lasix -] 40 mg PO DAILY #30 tablet 06/15/18 Lisinopril [Prinivil] 20 mg PO DAILY #30 tablet 06/15/18 Sitagliptin Phosphate [Januvia -] 50 mg PO DAILY@0700 #30 tablet 06/15/18 Asthma: Yes COPD: Yes HTN: Yes - Immunization History Immunization Up to Date: Yes - Suicide/Smoking/Psychosocial Hx Smoking History: Never smoked Hx Alcohol Use: No Drug/Substance Use Hx: No Substance Use Type: None Review of Systems - Review of Systems Able to Perform ROS?: Yes Comments:: GENERAL/CONSTITUTIONAL: No fever or chills. No weakness. HEAD, EYES, EARS, NOSE AND THROAT: No change in vision. No ear pain or discharge. No sore throat. CARDIOVASCULAR: No chest pain. +Shortness of breath. RESPIRATORY: No cough, wheezing, or hemoptysis. GASTROINTESTINAL: No nausea, vomiting, diarrhea or constipation. GENITOURINARY: No dysuria, frequency, or change in urination. MUSCULOSKELETAL: No joint or muscle swelling or pain. No neck or back pain. SKIN: No rash NEUROLOGIC: No headache, vertigo, loss of consciousness, or change in strength/ sensation. ENDOCRINE: No increased thirst. No abnormal weight change. HEMATOLOGIC/LYMPHATIC: No anemia, easy bleeding, or history of blood clots. ALLERGIC/IMMUNOLOGIC: No hives or skin allergy. *Physical Exam - Vital Signs Last Vital Signs Temp Pulse Resp BP Pulse Ox 98.3 F 125 H 18 153/103 H 99 07/23/18 10:10 07/23/18 10:10 07/23/18 10:10 07/23/18 10:10 07/23/18 10:10 - Physical Exam Comments: GENERAL: Awake, alert, and fully oriented, in no acute distress HEAD: No signs of trauma EYES: PERRLA, EOMI, sclera anicteric, conjunctiva clear ENT: Auricles normal inspection, hearing grossly normal, nares patent, oropharynx clear without exudates. Moist mucosa NECK: Normal ROM, supple, no lymphadenopathy, JVD, or masses LUNGS: Good air entry B/L. +Crackles at bases B/L. HEART: Regular rate and rhythm, normal S1 and S2, no murmurs, rubs or gallops ABDOMEN: Soft, nontender, normoactive bowel sounds. No guarding, no rebound. No masses EXTREMITIES: Normal range of motion, 1+ pitting edema BLE to shins. . No clubbing or cyanosis. No cords, erythema, or tenderness NEUROLOGICAL: Cranial nerves II through XII grossly intact. Normal speech. Motor and sensation intact. SKIN: Warm, Dry, normal turgor, no rashes or lesions noted. Moderate Sedation - Procedure Monitoring Vital Signs: Procedure Monitoring Vital Signs Temperature 98.3 F 07/23/18 10:10 Pulse Rate 125 H 07/23/18 10:10 Respiratory Rate 18 07/23/18 10:10 Blood Pressure 153/103 H 07/23/18 10:10 O2 Sat by Pulse Oximetry (%) 99 07/23/18 10:10 ED Treatment Course - LABORATORY CBC & Chemistry Diagram: 07/23/18 10:55 07/23/18 10:55 - ADDITIONAL ORDERS Additional order review: Laboratory Results 07/23/18 07/23/18 07/23/18 10:55 10:55 10:55 Sodium 139 Potassium 3.8 Chloride 106 Carbon Dioxide 25 Anion Gap 9 BUN 12 Creatinine 1.0 Creat Clearance w eGFR > 60 Random Glucose 110 H Lactic Acid 1.4 Calcium 8.6 Total Bilirubin 2.0 H AST 34 ALT 39 Alkaline Phosphatase 88 B-Natriuretic Peptide 4789.9 H Total Protein 6.5 Albumin 3.5 07/23/18 10:55 RBC 5.01 MCV 80.4 MCHC 34.4 RDW 16.6 H MPV 10.1 Neutrophils % 58.9 D Lymphocytes % 24.0 D Monocytes % 10.4 H D Eosinophils % 5.2 H D Basophils % 1.5 D - RADIOLOGY Radiology Studies Ordered: Category Date Time Status CHEST X-RAY PORTABLE* [RAD] Stat Radiology 07/23/18 10:51 Taken Medical Decision Making - Medical Decision Making Case d/w Dr. Rizvi, will admit for CHF exacerbation. Consult [facility]. *DC/Admit/Observation/Transfer Diagnosis at time of Disposition: Dyspnea on exertion, Shortness of breath CHF (congestive heart failure) Qualifiers: Heart failure type: unspecified Heart failure chronicity: acute on chronic Qualified Code(s): I50.9 - Heart failure, unspecified - Discharge Dispostion Condition at time of disposition: Guarded Decision to Admit order: Yes - Referrals - Patient Instructions - Post Discharge Activity
[2018-07-23] MEDS ORDERED: FUROSEMIDE 40 MG/4 ML INJECTABLE VIAL IVPUSH ONE (11:31)
[2018-07-23] MEDS ORDERED: FUROSEMIDE 40 MG/4 ML INJECTABLE VIAL ONE (11:53)
--- NOTE | 2018-07-23 15:17 | CON.CARD ---
Consult Consult Specialty:: Cardiology Referred by:: Dr. Narvaez and Dr. 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 The patient has been experiencing gradually worsening SOB, dry cough and weakness with decreased exercise tolerance for the past 3 days. He can not walk more than 10 feet because of SOB. He has no chest pain, palpitation, dizziness, syncope or near syncope. No fever or chills. ECG shows atrial flutter with variable AVB and RBBB. CXR 05/23/2018 showed moderate cardiomegaly, no pneumonia. BNP is elevated. He is tachycardic and BP is elevated. - History Source History Provided By: Patient Limitations to Obtaining History: No Limitations - Past Medical History Cardio/Vascular: Yes: HTN, Other (Atrial flutter) Pulmonary: Yes: Asthma - Alcohol/Substance Use Hx Alcohol Use: No - Smoking History Smoking history: Never smoked Home Medications - Allergies Allergies/Adverse Reactions: Allergies Allergy/AdvReac Type Severity Reaction Status Date / Time No Known Allergies Allergy Verified 07/23/18 10:13 - Home Medications Home Medications: Ambulatory Orders Acetaminophen [Tylenol .Regular Strength -] 650 mg PO Q6H PRN tablet 06/15/18 Atorvastatin Ca [Lipitor] 10 mg PO HS #30 tablet 06/15/18 Carvedilol [Coreg -] 6.25 mg PO BID #60 tablet 06/15/18 Furosemide [Lasix -] 40 mg PO DAILY #30 tablet 06/15/18 Lisinopril [Prinivil] 20 mg PO DAILY #30 tablet 06/15/18 Sitagliptin Phosphate [Januvia -] 50 mg PO DAILY@0700 #30 tablet 06/15/18 Review of Systems - Review of Systems Constitutional: reports: No Symptoms Eyes: reports: No Symptoms HENT: reports: No Symptoms Neck: reports: No Symptoms Cardiovascular: reports: Shortness of Breath Respiratory: reports: Cough, SOB, SOB on Exertion Gastrointestinal: reports: No Symptoms Genitourinary: reports: No Symptoms Breasts: reports: No Symptoms Reported Musculoskeletal: reports: No Symptoms Integumentary: reports: No Symptoms Neurological: reports: No Symptoms Endocrine: reports: No Symptoms Hematology/Lymphatic: reports: No Symptoms Psychiatric: reports: No Symptoms Vital Signs: Vital Signs Temperature 98.3 F 07/23/18 10:10 Pulse Rate 125 H 07/23/18 10:10 Respiratory Rate 18 07/23/18 10:10 Blood Pressure 153/103 H 07/23/18 10:10 O2 Sat by Pulse Oximetry (%) 99 07/23/18 10:10 General: Well developed. Well nourished. No acute distress. Head: Normocephalic. Atraumatic, Eyes: PERRLA, EOMI. Sclerae anicteric. Conjunctivae clear. Neck: Supple. (+) JVD. No bruits. Heart: Normal S1, S2: Irregular rhythm and rate. No murmur. No gallop or rub. Lungs: Symmetrical air entry with prolonged expiration. Bibasilar crackles. No wheezing or rhonchi. Abdomen: Soft. Bowel sound positive. Non tender. No masses. Extremities: 1+ edema. No clubbing or cyanosis. PD 2+, equal bilaterally. Neuro: Intact, no focal findings. AAO X3. 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 ECG shows atrial flutter with variable AVB and RBBB. BNP is elevated. He is tachycardic and BP is elevated. CXR 05/23/2018 showed moderate cardiomegaly, no pneumonia. 1) Acute on chronic systolic CHF, exacerbated by rapid new atrial flutter: Start IV Lasix 40 mg q12 hour Keep Os >Is Monitor daily weight, electrolytes and renal function. 2) Atrial flutter with variable AV block and relatively rapid VR. -Admit to telemetry bed. -Ventricular rate control Change carvidelol to Metoprolol 50 mg BID Add Digoxin 0.125 mg daily, first dose 0.25 mg today. -Anticoagulation (CHADS2 score = 3): Start Eliquis 5 mg BID. 3) Hypertension: Restart Lisinopril and increase it to 40 mg daily. Change carvidelol to Metoprolol 50 mg BID. We will follow the patient with you!
--- NOTE | 2018-07-23 15:18 | EKG ---
Test Reason : Blood Pressure : / mmHG Vent. Rate : 096 BPM Atrial Rate : 249 BPM P-R Int : 000 ms QRS Dur : 140 ms QT Int : 404 ms P-R-T Axes : 000 193 -30 degrees QTc Int : 510 ms ATRIAL FLUTTER WITH VARIABLE A-V BLOCK WITH PREMATURE VENTRICULAR OR ABERRANTLY CONDUCTED COMPLEXES RIGHT BUNDLE BRANCH BLOCK INFERIOR INFARCT (CITED ON OR BEFORE 11-JUN-2018) ANTERIOR INFARCT , AGE UNDETERMINED ABNORMAL ECG WHEN COMPARED WITH ECG OF 11-JUN-2018 12:48, ATRIAL FLUTTER HAS REPLACED SINUS RHYTHM QUESTIONABLE CHANGE IN QRS AXIS ANTERIOR INFARCT IS NOW PRESENT Confirmed by MD NAILA, DANIELLE ([id number]) on 07/23/2018 3:17:40 PM Referred By: Confirmed By:DANIELLE YOO MD
[2018-07-23] MEDS ORDERED: ALBUTEROL SO4 2.5/IPRATROPIUM 0.5 INH SOL 3 ML VIAL.NEB. NEB PRN (17:10)
[2018-07-23] MEDS ORDERED: ACETAMINOPHEN 325 MG TABLET (FP) PO PRN (17:10)
--- NOTE | 2018-07-23 17:17 | HP ---
Admitting History and Physical - Primary Care Physician PCP: Marissa Rizvi - Admission Chief Complaint: DYSPNEA/EDEMA History of Present Illness: 78 Y/O MALE HISTORY OF CHF, HTN, LIPIDEMIA, HERE WITH DYSPNEA AT REST AND WORSENING LEG EDEMA FOR 3 DAYS. PATIENT WAS TRYING TO TAKE ORAL LASIX AT HOME BUT WAS STILL RETAINING FLUIDS WITH HIS EDEMA AND SOB WAS WORSE WHICH PROMPTED HIM TO COME TO THE ED. History Source: Patient - Past Medical History Cardiovascular: Yes: HTN, Other (Atrial flutter) Pulmonary: Yes: Asthma - Smoking History Smoking history: Never smoked - Alcohol/Substance Use Hx Alcohol Use: No Home Medications - Allergies Allergies/Adverse Reactions: Allergies Allergy/AdvReac Type Severity Reaction Status Date / Time No Known Allergies Allergy Verified 07/23/18 10:13 - Home Medications Home Medications: Ambulatory Orders Acetaminophen [Tylenol .Regular Strength -] 650 mg PO Q6H PRN tablet 06/15/18 Atorvastatin Ca [Lipitor] 10 mg PO HS #30 tablet 06/15/18 Carvedilol [Coreg -] 6.25 mg PO BID #60 tablet 06/15/18 Furosemide [Lasix -] 40 mg PO DAILY #30 tablet 06/15/18 Lisinopril [Prinivil] 20 mg PO DAILY #30 tablet 06/15/18 Sitagliptin Phosphate [Januvia -] 50 mg PO DAILY@0700 #30 tablet 06/15/18 Review of Systems - Review of Systems Constitutional: reports: Weakness Eyes: reports: No Symptoms HENT: reports: No Symptoms Neck: reports: No Symptoms Cardiovascular: reports: Shortness of Breath Respiratory: reports: Cough, Orthopnea, SOB Gastrointestinal: reports: No Symptoms Genitourinary: reports: No Symptoms Musculoskeletal: reports: No Symptoms Integumentary: reports: No Symptoms Neurological: reports: No Symptoms Endocrine: reports: No Symptoms Hematology/Lymphatic: reports: No Symptoms Psychiatric: reports: No Symptoms Physical Examination Vital Signs: Vital Signs Temperature 98.1 F 07/23/18 15:25 Pulse Rate 118 H 07/23/18 16:45 Respiratory Rate 20 07/23/18 16:45 Blood Pressure 154/108 H 07/23/18 16:45 O2 Sat by Pulse Oximetry (%) 100 07/23/18 16:45 Constitutional: Yes: Mild Distress Eyes: Yes: WNL HENT: Yes: WNL Neck: Yes: WNL Cardiovascular: Yes: Pulse Irregular Respiratory: Yes: Cough, On Nasal O2, Poor Air Entry, Rales, SOB Gastrointestinal: Yes: WNL Renal/: Yes: WNL Musculoskeletal: Yes: Muscle Weakness Extremities: Yes: WNL Edema: Yes Edema: LLE: 2+, RLE: 2+ Peripheral Pulses WNL: Yes Integumentary: Yes: WNL Wound/Incision: Yes: Clean/Dry Neurological: Yes: WNL ...Motor Strength: WNL Psychiatric: Yes: WNL Labs: CBC, BMP 07/23/18 10:55 07/23/18 10:55 Imaging - Results Chest X-ray: Report Reviewed Problem List - Problems (1) CHF (congestive heart failure) Code(s): I50.9 - HEART FAILURE, UNSPECIFIED Qualifiers: Heart failure type: unspecified Heart failure chronicity: acute on chronic Qualified Code(s): I50.9 - Heart failure, unspecified (2) Dyspnea on exertion Code(s): R06.09 - OTHER FORMS OF DYSPNEA (3) Shortness of breath Code(s): R06.02 - SHORTNESS OF BREATH (4) Asthmatic bronchitis Code(s): J45.909 - UNSPECIFIED ASTHMA, UNCOMPLICATED (5) Diabetes Code(s): E11.9 - TYPE 2 DIABETES MELLITUS WITHOUT COMPLICATIONS (6) HTN (hypertension) Code(s): I10 - ESSENTIAL (PRIMARY) HYPERTENSION (7) Obesity Code(s): E66.9 - OBESITY, UNSPECIFIED Assessment/Plan CHECK ECHO TO IDENTIFY CLASS AND SEVERITY OF CHF 02 SUPPORT LASIX IV CARDIOLOGY/PULM EVAL DIETARY CONSULT TO AVOID REOCCURANCE OF CHF EXACERBATION LOW SALT/ADA WITH BGM CHECKS
[2018-07-23] MEDS ORDERED: DIGOXIN 0.25 MG TABLET (FP) PO ONE (19:45)
[2018-07-23] MEDS: FUROSEMIDE 40 MG/4 ML INJECTABLE VIAL IVPUSH SCH (21:32)
[2018-07-23] MEDS: METOPROLOL TARTRATE 50 MG TABLET (FP) PO SCH (21:35)
[2018-07-23] MEDS: APIXABAN 5 MG TABLET PO SCH (21:35)
[2018-07-23] MEDS: ATORVASTATIN CA 10 MG TABLET (FP) PO SCH (21:35)
[2018-07-23] MEDS: INSULIN SLIDING SCALE (NOVOLOG) 1 VIAL SQ SCH (21:44)
[2018-07-23] MEDS ORDERED: CARVEDILOL 6.25 MG TABLET (FP) PO SCH (22:00)
[2018-07-23] MEDS ORDERED: HEPARIN NA (PORCINE) 5,000 UNITS/ML 1ML VIAL SQ SCH (22:00)
[2018-07-24] MEDS: FUROSEMIDE 40 MG/4 ML INJECTABLE VIAL IVPUSH SCH ×2 (05:59→13:16)
[2018-07-24] MEDS ORDERED: FUROSEMIDE 40 MG/4 ML INJECTABLE VIAL IVPUSH SCH (06:00)
[2018-07-24] MEDS: sitaGLIPtin PHOSPHATE 50 MG TABLET PO SCH (06:08)
[2018-07-24] MEDS: INSULIN SLIDING SCALE (NOVOLOG) 1 VIAL SQ SCH ×4 (06:08→21:50)
[2018-07-24 06:36] LABS: HEMATOCRIT 47.1 % (35.4-49); HEMOGLOBIN 14.9 GM/dL (11.7-16.9); MCH 25.9 pg (25.7-33.7); MCHC 31.8 g/dl (32.0-35.9); MEAN CELL VOLUME 81.7 fl (80-96); MEAN PLT VOLUME 10.4 fl (7.5-11.1); PLATELET COUNT 209 K/MM3 (134-434); RBC 5.76 M/mm3 (4.00-5.60); WHITE BLOOD COUNT 5.3 K/mm3 (4.0-10.0)
[2018-07-24 07:28] LABS: ALBUMIN 3.6 g/dl (3.4-5.0); ALK PHOS 105 U/L (45-117); ANION GAP 9 MMOL/L (8-16); BILIRUBIN,TOTAL 2.6 mg/dL (0.2-1); BLOOD UREA NITROGEN 15 mg/dL (7-18); CALCIUM 8.6 mg/dL (8.5-10.1); CHLORIDE 104 mmol/L (98-107); CO2 23 mmol/L (21-32); CREATININE 1.3 mg/dL (0.55-1.3); GLUCOSE,RANDOM 112 mg/dL (74-106); MAGNESIUM 1.9 mg/dL (1.8-2.4); POTASSIUM 5.8 mmol/L (3.5-5.1); SGOT/AST 57 U/L (15-37); SGPT/ALT 56 U/L (13-61); SODIUM 136 mmol/L (136-145); TOT PROT 6.6 g/dl (6.4-8.2)
[2018-07-24 08:00] LABS: CHOLESTEROL 150 mg/dL (50-200); HDL CHOLESTEROL 56 mg/dL (40-60); TRIGLYCERIDES 69 mg/dL (0-150)
[2018-07-24] MEDS ORDERED: SODIUM POLYSTYRENE SULFONATE 15 GM/60 ML BOTTLE PO ONE (08:00)
[2018-07-24] MEDS: DIGOXIN 0.125 MG TABLET (FP) PO SCH (09:33)
[2018-07-24] MEDS: LISINOPRIL 20 MG TABLET (FP) PO SCH (09:33)
[2018-07-24] MEDS: METOPROLOL TARTRATE 50 MG TABLET (FP) PO SCH ×2 (09:34→21:24)
[2018-07-24] MEDS: APIXABAN 5 MG TABLET PO SCH ×2 (09:34→21:24)
[2018-07-24] MEDS: ASPIRIN COATED 81 MG TABLET.EC PO SCH (09:34)
[2018-07-24] MEDS ORDERED: LISINOPRIL 10 MG TABLET (FP) PO SCH (10:00)
--- NOTE | 2018-07-24 11:48 | PN ---
Progress Note, Physician Chief Complaint: AWAKE ALERT FEELING BETTER - Current Medication List Current Medications: Active Medications Acetaminophen (Tylenol -) 650 mg PO Q6H PRN PRN Reason: PAIN OR FEVER Albuterol/Ipratropium (Duoneb -) 1 amp NEB Q6H PRN PRN Reason: SHORTNESS OF BREATH Apixaban (Eliquis -) 5 mg PO BID [facility] Last Admin: 07/24/18 09:34 Dose: 5 mg Aspirin (Ecotrin -) 81 mg PO DAILY [facility] Last Admin: 07/24/18 09:34 Dose: 81 mg Atorvastatin Calcium (Lipitor -) 10 mg PO HS [facility] Last Admin: 07/23/18 21:35 Dose: 10 mg Digoxin (Lanoxin -) 0.125 mg PO DAILY [facility] Last Admin: 07/24/18 09:33 Dose: 0.125 mg Furosemide (Lasix Injection -) 40 mg IVPUSH BIDLASIX [facility] Last Admin: 07/24/18 05:59 Dose: 40 mg Insulin Aspart (Novolog Vial Sliding Scale -) 1 vial SQ [facility]; Protocol Last Admin: 07/24/18 06:08 Dose: Not Given Lisinopril (Prinivil) 40 mg PO DAILY [facility] Last Admin: 07/24/18 09:33 Dose: 40 mg Metoprolol Tartrate (Lopressor -) 50 mg PO BID [facility] Last Admin: 07/24/18 09:34 Dose: 50 mg Sitagliptin Phosphate (Januvia -) 50 mg PO DAILY@0700 [facility] Last Admin: 07/24/18 06:08 Dose: 50 mg - Objective Vital Signs: Vital Signs Temperature 98.0 F 07/24/18 10:00 Pulse Rate 81 07/24/18 10:00 Respiratory Rate 20 07/24/18 10:00 Blood Pressure 135/81 07/24/18 10:00 O2 Sat by Pulse Oximetry (%) 96 07/24/18 08:10 Constitutional: Yes: Mild Distress Eyes: Yes: WNL HENT: Yes: WNL Neck: Yes: WNL Cardiovascular: Yes: Pulse Irregular Respiratory: Yes: Diminished, On Nasal O2 Gastrointestinal: Yes: WNL Genitourinary: Yes: WNL Musculoskeletal: Yes: WNL Extremities: Yes: WNL Edema: No Peripheral Pulses WNL: Yes Integumentary: Yes: WNL Wound/Incision: Yes: Clean/Dry Neurological: Yes: WNL ...Motor Strength: WNL Psychiatric: Yes: WNL Labs: CBC, BMP 07/24/18 05:30 07/24/18 05:30 Problem List - Problems (1) CHF (congestive heart failure) Code(s): I50.9 - HEART FAILURE, UNSPECIFIED Qualifiers: Heart failure type: systolic Heart failure chronicity: acute on chronic Qualified Code(s): I50.23 - Acute on chronic systolic (congestive) heart failure (2) Dyspnea on exertion Code(s): R06.09 - OTHER FORMS OF DYSPNEA (3) Shortness of breath Code(s): R06.02 - SHORTNESS OF BREATH (4) Asthmatic bronchitis Code(s): J45.909 - UNSPECIFIED ASTHMA, UNCOMPLICATED (5) Diabetes Code(s): E11.9 - TYPE 2 DIABETES MELLITUS WITHOUT COMPLICATIONS (6) HTN (hypertension) Code(s): I10 - ESSENTIAL (PRIMARY) HYPERTENSION (7) Obesity Code(s): E66.9 - OBESITY, UNSPECIFIED Assessment/Plan SYSTOLIC HEART FAILURE WITH REDUCED CARDIAC FUNCTION ON ELIQUIS LASIX IVP CARDIO EVAL APPRECIATED DM CONTROL ADA/BGM/SSI OOB TO CHAIR
--- NOTE | 2018-07-24 11:49 | PN ---
Progress Note (short form) - Note Progress Note: K+ IS 5.8 WILL ORDER KAYEXALATE 15GM AND REPEAT BMP AT 3PM TODAY Problem List - Problems (1) CHF (congestive heart failure) Code(s): I50.9 - HEART FAILURE, UNSPECIFIED Qualifiers: Heart failure type: systolic Heart failure chronicity: acute on chronic Qualified Code(s): I50.23 - Acute on chronic systolic (congestive) heart failure (2) Dyspnea on exertion Code(s): R06.09 - OTHER FORMS OF DYSPNEA (3) Shortness of breath Code(s): R06.02 - SHORTNESS OF BREATH (4) Asthmatic bronchitis Code(s): J45.909 - UNSPECIFIED ASTHMA, UNCOMPLICATED (5) Diabetes Code(s): E11.9 - TYPE 2 DIABETES MELLITUS WITHOUT COMPLICATIONS (6) HTN (hypertension) Code(s): I10 - ESSENTIAL (PRIMARY) HYPERTENSION (7) Obesity Code(s): E66.9 - OBESITY, UNSPECIFIED
[2018-07-24 14:53] LABS: URINE APPEARANCE CLEAR; URINE BILIRUBIN NEGATIVE (<2.0 mg/dL); URINE COLOR YELLOW; URINE GLUCOSE (UA) NEGATIVE (NEGATIVE); URINE KETONE NEGATIVE (NEGATIVE); URINE LEUK ESTERASE NEGATIVE (NEGATIVE); URINE NITRITE NEGATIVE (NEGATIVE); URINE PROTEIN 2+ (NEGATIVE); URINE UROBILINOGEN NEGATIVE mg/dL (0.2-1.0)
[2018-07-24 14:55] LABS: URINE HYALINE CAST 16 /lpf; URINE MUCUS RARE
--- NOTE | 2018-07-24 15:04 | CON.PULM ---
Consult Consult Specialty:: PULMONARY Referred by:: MAXWELL Reason for Consultation:: SOB - History of Present Illness Chief Complaint: GARCIA WITH WALKING History of Present Illness: 78 year-old man with a PMHx of HTN, asthma and systolic CHF, (no stress induced ischemia from regadenoson nuclear stress test on 06/14/2018) with LVEF 40-45% from echocardiogram on 06/13/2018 presented to ED 07/23/2018 with shortness of breath and weakness. The patient has been experiencing gradually worsening SOB, dry cough and weakness with decreased exercise tolerance for the past 3 days. He can not walk more than 10 feet because of SOB. He has no chest pain, palpitation, dizziness, syncope or near syncope. No fever or chills. - History Source History Provided By: Patient, Medical Record Limitations to Obtaining History: Language Barrier - Past Medical History DIGESTER COOK: No: Alzheimer's Cardio/Vascular: Yes: HTN, Other (Atrial flutter) Pulmonary: Yes: Asthma Gastrointestinal: No: Ascites, Ulcerative Colitis Renal/: No: Renal Failure Heme/Onc: No: Anemia - Alcohol/Substance Use Hx Alcohol Use: No - Smoking History Smoking history: Never smoked Home Medications - Allergies Allergies/Adverse Reactions: Allergies Allergy/AdvReac Type Severity Reaction Status Date / Time No Known Allergies Allergy Verified 07/23/18 10:13 - Home Medications Home Medications: Ambulatory Orders Acetaminophen [Tylenol .Regular Strength -] 650 mg PO Q6H PRN tablet 06/15/18 Atorvastatin Ca [Lipitor] 10 mg PO HS #30 tablet 06/15/18 Carvedilol [Coreg -] 6.25 mg PO BID #60 tablet 06/15/18 Furosemide [Lasix -] 40 mg PO DAILY #30 tablet 06/15/18 Lisinopril [Prinivil] 20 mg PO DAILY #30 tablet 06/15/18 Sitagliptin Phosphate [Januvia -] 50 mg PO DAILY@0700 #30 tablet 06/15/18 Family Disease History - Family Disease History Family History: Unremarkable Review of Systems - Review of Systems Constitutional: denies: Fever Eyes: denies: Blurred Vision HENT: denies: Difficult Swallowing Neck: denies: Decreased ROM Cardiovascular: reports: Edema, Shortness of Breath. denies: Chest Pain Respiratory: reports: Cough, Exercise Intolerance, SOB, SOB on Exertion. denies : Hemoptysis, Wheezing Gastrointestinal: denies: Abdominal Pain Genitourinary: denies: Burning Physical Exam Vital Sings: Vital Signs Temperature 97.6 F 07/24/18 14:00 Pulse Rate 83 07/24/18 14:00 Respiratory Rate 20 07/24/18 14:00 Blood Pressure 144/81 07/24/18 14:00 O2 Sat by Pulse Oximetry (%) 96 07/24/18 08:10 Constitutional: Yes: Calm Eyes: Yes: EOM Intact HENT: Yes: Normocephalic Neck: Yes: Trachea Midline Cardiovascular: Yes: S1, S2 Respiratory: Yes: Diminished Gastrointestinal: Yes: Normal Bowel Sounds, Soft, Abdomen, Obese Edema: LLE: 2+, RLE: 2+ Neurological: Yes: Alert ...Motor Strength: WNL Psychiatric: Yes: Alert Labs: CBC, BMP 07/24/18 05:30 REST REVIEWED Imaging - Results Chest X-ray: Report Reviewed, Image Reviewed EKG: Report Reviewed, Image Reviewed Problem List - Problems (1) Atrial flutter by electrocardiogram Code(s): I48.92 - UNSPECIFIED ATRIAL FLUTTER (2) CHF (congestive heart failure) Code(s): I50.9 - HEART FAILURE, UNSPECIFIED Qualifiers: Heart failure type: systolic Heart failure chronicity: acute on chronic Qualified Code(s): I50.23 - Acute on chronic systolic (congestive) heart failure (3) Dyspnea on exertion Code(s): R06.09 - OTHER FORMS OF DYSPNEA (4) Diabetes Code(s): E11.9 - TYPE 2 DIABETES MELLITUS WITHOUT COMPLICATIONS (5) HTN (hypertension) Code(s): I10 - ESSENTIAL (PRIMARY) HYPERTENSION Assessment/Plan O2 TO KEP SPO2 >90% CONTINUE DIURETIC MONITOR DAILY WEIGHT/I/O LYTES/BUN RATE CONTROL STARTED ON DIG AND BETA-URBANO ADJUSTED ANTICOAGULATION TWYLA FOR HTN WOULD STRONGLY CONSIDER OSAS PLAYING A ROLE IN HIS CARDIAC CONDITION WILL SCREEN TONIGHT NEEDS PSG OUTPATIENT Darrick QUILES MD
[2018-07-24 15:21] LABS: ANION GAP 11 MMOL/L (8-16); BLOOD UREA NITROGEN 20 mg/dL (7-18); CALCIUM 8.9 mg/dL (8.5-10.1); CHLORIDE 102 mmol/L (98-107); CO2 25 mmol/L (21-32); CREATININE 1.5 mg/dL (0.55-1.3); GLUCOSE,RANDOM 115 mg/dL (74-106); POTASSIUM 4.4 mmol/L (3.5-5.1); SODIUM 138 mmol/L (136-145)
--- NOTE | 2018-07-24 17:29 | PN ---
Progress Note, Physician Chief Complaint: Patient is sitting comfortably with improved SOB. He denies palpitation or chest pain. Tele shows persistent atrial flutter with variable AV block in 80s and frequent VPCs. 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 ECG shows atrial flutter with variable AVB and RBBB. BNP is elevated. He is tachycardic and BP is elevated. CXR 05/23/2018 showed moderate cardiomegaly, no pneumonia. Seen by pulm, rule out FESTUS recommended. - Current Medication List Current Medications: Active Medications Acetaminophen (Tylenol -) 650 mg PO Q6H PRN PRN Reason: PAIN OR FEVER Albuterol/Ipratropium (Duoneb -) 1 amp NEB Q6H PRN PRN Reason: SHORTNESS OF BREATH Apixaban (Eliquis -) 5 mg PO BID [facility] Last Admin: 07/24/18 09:34 Dose: 5 mg Aspirin (Ecotrin -) 81 mg PO DAILY [facility] Last Admin: 07/24/18 09:34 Dose: 81 mg Atorvastatin Calcium (Lipitor -) 10 mg PO HS [facility] Last Admin: 07/23/18 21:35 Dose: 10 mg Digoxin (Lanoxin -) 0.125 mg PO DAILY [facility] Last Admin: 07/24/18 09:33 Dose: 0.125 mg Furosemide (Lasix Injection -) 40 mg IVPUSH BIDLASIX [facility] Last Admin: 07/24/18 13:16 Dose: 40 mg Insulin Aspart (Novolog Vial Sliding Scale -) 1 vial SQ ACHS [facility]; Protocol Last Admin: 07/24/18 16:36 Dose: Not Given Lisinopril (Prinivil) 40 mg PO DAILY [facility] Last Admin: 07/24/18 09:33 Dose: 40 mg Metoprolol Tartrate (Lopressor -) 50 mg PO BID [facility] Last Admin: 07/24/18 09:34 Dose: 50 mg Sitagliptin Phosphate (Januvia -) 50 mg PO DAILY@0700 [facility] Last Admin: 07/24/18 06:08 Dose: 50 mg - Objective Vital Signs: Vital Signs Temperature 97.6 F 07/24/18 14:00 Pulse Rate 83 07/24/18 14:00 Respiratory Rate 20 07/24/18 14:00 Blood Pressure 144/81 07/24/18 14:00 O2 Sat by Pulse Oximetry (%) 96 07/24/18 08:10 General: Well developed. Obese. No acute distress. Head: Normocephalic. Atraumatic, Eyes: PERRLA, EOMI. Sclerae anicteric. Conjunctivae clear. Neck: Supple. (+) JVD. No bruits. Heart: Normal S1, S2: Irregular rhythm and rate. No murmur. No gallop or rub. Lungs: Symmetrical poor air entry. No crackle. No wheezing or rhonchi. Abdomen: Soft. Bowel sound positive. Non tender. No masses. Extremities: 1-2+ edema. No clubbing or cyanosis. 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 ECG shows atrial flutter with variable AVB and RBBB. BNP is elevated. He is tachycardic and BP is elevated. CXR 05/23/2018 showed moderate cardiomegaly, no pneumonia. 1) Acute on chronic systolic CHF, exacerbated by rapid new atrial flutter. Improved with IV Lasix. Continue IV Lasix 40 mg q12 hour Keep Os >Is Monitor daily weight, electrolytes and renal function. 2) Atrial flutter with variable AV block. Ventricular rate is under control. Continue Metoprolol 50 mg BID Continue Digoxin 0.125 mg daily. Continue Eliquis 5 mg BID. 3) Hypertension: BP control improved. Continue Lisinopril 40 mg daily. Continue Metoprolol 50 mg BID. 4) Pulmonary evaluation appreciated. The patient is likely to have FESTUS which may contribute to his LV systoic dysfunction and atrial arrhythmia. We will follow the patient with you!
[2018-07-24] MEDS: ATORVASTATIN CA 10 MG TABLET (FP) PO SCH (21:24)
[2018-07-25] MEDS ORDERED: INSULIN (NOVOLOG) ASPART 100 UNITS/ML 10ML VIAL ONE (05:08)
[2018-07-25] MEDS: FUROSEMIDE 40 MG/4 ML INJECTABLE VIAL IVPUSH SCH ×2 (05:15→13:18)
[2018-07-25] MEDS: INSULIN SLIDING SCALE (NOVOLOG) 1 VIAL SQ SCH ×4 (06:21→22:49)
[2018-07-25] MEDS: sitaGLIPtin PHOSPHATE 50 MG TABLET PO SCH (06:21)
[2018-07-25 07:35] LABS: ANION GAP 13 MMOL/L (8-16); BLOOD UREA NITROGEN 25 mg/dL (7-18); CALCIUM 8.4 mg/dL (8.5-10.1); CHLORIDE 103 mmol/L (98-107); CO2 22 mmol/L (21-32); CREATININE 1.4 mg/dL (0.55-1.3); GLUCOSE,RANDOM 91 mg/dL (74-106); MAGNESIUM 1.8 mg/dL (1.8-2.4); POTASSIUM 4.6 mmol/L (3.5-5.1); SODIUM 137 mmol/L (136-145)
[2018-07-25] MEDS: ASPIRIN COATED 81 MG TABLET.EC PO SCH (09:09)
[2018-07-25] MEDS: METOPROLOL TARTRATE 50 MG TABLET (FP) PO SCH ×2 (09:09→22:45)
[2018-07-25] MEDS: LISINOPRIL 20 MG TABLET (FP) PO SCH (09:09)
[2018-07-25] MEDS: APIXABAN 5 MG TABLET PO SCH ×2 (09:09→22:45)
[2018-07-25] MEDS: DIGOXIN 0.125 MG TABLET (FP) PO SCH (09:09)
--- NOTE | 2018-07-25 10:37 | PN ---
Progress Note, Physician History of Present Illness: PULMONARY ALERT,FEELING BETTER,LESS DYSPNEIC. PT HAD SLEEP SCREEN LAST ADMISSION [facility] 46 C/ W SEVERE OSAS - Current Medication List Current Medications: Active Medications Acetaminophen (Tylenol -) 650 mg PO Q6H PRN PRN Reason: PAIN OR FEVER Albuterol/Ipratropium (Duoneb -) 1 amp NEB Q6H PRN PRN Reason: SHORTNESS OF BREATH Apixaban (Eliquis -) 5 mg PO BID [facility] Last Admin: 07/25/18 09:09 Dose: 5 mg Aspirin (Ecotrin -) 81 mg PO DAILY [facility] Last Admin: 07/25/18 09:09 Dose: 81 mg Atorvastatin Calcium (Lipitor -) 10 mg PO HS [facility] Last Admin: 07/24/18 21:24 Dose: 10 mg Digoxin (Lanoxin -) 0.125 mg PO DAILY [facility] Last Admin: 07/25/18 09:09 Dose: 0.125 mg Furosemide (Lasix Injection -) 40 mg IVPUSH BIDLASIX REPLACED BY [facility] Last Admin: 07/25/18 05:15 Dose: 40 mg Insulin Aspart (Novolog Vial Sliding Scale -) 1 vial SQ [facility]; Protocol Last Admin: 07/25/18 06:21 Dose: Not Given Lisinopril (Prinivil) 40 mg PO DAILY [facility] Last Admin: 07/25/18 09:09 Dose: 40 mg Metoprolol Tartrate (Lopressor -) 50 mg PO BID [facility] Last Admin: 07/25/18 09:09 Dose: 50 mg Sitagliptin Phosphate (Januvia -) 50 mg PO DAILY@0700 [facility]PL[facility] Last Admin: 07/25/18 06:21 Dose: 50 mg - Objective Vital Signs: Vital Signs Temperature 98 F 07/25/18 09:00 Pulse Rate 80 07/25/18 09:09 Respiratory Rate 18 07/25/18 09:00 Blood Pressure 146/94 07/25/18 09:00 O2 Sat by Pulse Oximetry (%) 98 07/24/18 20:31 Constitutional: Yes: Well Nourished, Calm Eyes: Yes: WNL HENT: Yes: WNL Neck: Yes: WNL Cardiovascular: Yes: Pulse Irregular, S1, S2 Respiratory: Yes: Diminished Gastrointestinal: Yes: Normal Bowel Sounds, Soft Extremities: Yes: WNL Edema: Yes Labs: CBC, BMP 07/24/18 05:30 12/03/18 05:30 Problem List - Problems (1) Sleep apnea Code(s): G47.30 - SLEEP APNEA, UNSPECIFIED (2) Shortness of breath Code(s): R06.02 - SHORTNESS OF BREATH (3) Obesity Code(s): E66.9 - OBESITY, UNSPECIFIED Assessment/Plan Problem List - Problems (1) Atrial flutter by electrocardiogram Code(s): I48.92 - UNSPECIFIED ATRIAL FLUTTER (2) CHF (congestive heart failure) Code(s): I50.9 - HEART FAILURE, UNSPECIFIED Qualifiers: Heart failure type: systolic Heart failure chronicity: acute on chronic Qualified Code(s): I50.23 - Acute on chronic systolic (congestive) heart failure (3) Dyspnea on exertion Code(s): R06.09 - OTHER FORMS OF DYSPNEA (4) Diabetes Code(s): E11.9 - TYPE 2 DIABETES MELLITUS WITHOUT COMPLICATIONS (5) HTN (hypertension) Code(s): I10 - ESSENTIAL (PRIMARY) HYPERTENSION Assessment/Plan O2 TO KEP SPO2 >90% DIURETIC MONITOR DAILY WEIGHT I/O, LYTES/BUN RATE CONTRO ANTICOAGULATION TWYLA FOR HTN SLEEP STUDIES DR MURDOCK
--- NOTE | 2018-07-25 13:44 | PN ---
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 - Current Medication List Current Medications: Active Medications Acetaminophen (Tylenol -) 650 mg PO Q6H PRN PRN Reason: PAIN OR FEVER Albuterol/Ipratropium (Duoneb -) 1 amp NEB Q6H PRN PRN Reason: SHORTNESS OF BREATH Apixaban (Eliquis -) 5 mg PO BID [facility] Last Admin: 07/25/18 09:09 Dose: 5 mg Aspirin (Ecotrin -) 81 mg PO DAILY [facility] Last Admin: 07/25/18 09:09 Dose: 81 mg Atorvastatin Calcium (Lipitor -) 10 mg PO HS [facility] Last Admin: 07/24/18 21:24 Dose: 10 mg Digoxin (Lanoxin -) 0.125 mg PO DAILY [facility] Last Admin: 07/25/18 09:09 Dose: 0.125 mg Furosemide (Lasix Injection -) 40 mg IVPUSH BIDLASIX [facility] Last Admin: 07/25/18 13:18 Dose: 40 mg Insulin Aspart (Novolog Vial Sliding Scale -) 1 vial SQ ACHS [facility]; Protocol Last Admin: 07/25/18 12:26 Dose: Not Given Lisinopril (Prinivil) 40 mg PO DAILY [facility] Last Admin: 07/25/18 09:09 Dose: 40 mg Metoprolol Tartrate (Lopressor -) 50 mg PO BID [facility] Last Admin: 07/25/18 09:09 Dose: 50 mg Sitagliptin Phosphate (Januvia -) 50 mg PO DAILY@0700 [facility] Last Admin: 07/25/18 06:21 Dose: 50 mg - Objective Vital Signs: Vital Signs Temperature 98 F 07/25/18 09:00 Pulse Rate 80 07/25/18 09:09 Respiratory Rate 18 07/25/18 09:00 Blood Pressure 146/94 07/25/18 09:00 O2 Sat by Pulse Oximetry (%) 98 07/25/18 09:00 Constitutional: Yes: Well Nourished, No Distress, Calm Eyes: Yes: WNL, Conjunctiva Clear, EOM Intact HENT: Yes: WNL, Atraumatic, Normocephalic Neck: Yes: WNL, Supple, Trachea Midline Cardiovascular: Yes: Pulse Irregular, S1, S2 Respiratory: Yes: Regular, Rales, SOB Gastrointestinal: Yes: WNL, Normal Bowel Sounds, Soft ...Rectal Exam: Yes: Deferred Genitourinary: Yes: WNL Musculoskeletal: Yes: WNL Edema: LLE: 1+, RLE: 1+ Peripheral Pulses: Left Radial: 1+, Right Radial: 1+, Left Doralis Pedis: 1+, Right Dorsalis Pedis: 1+, Left Femoral: 1+, Right Femoral: 1+ Integumentary: Yes: WNL Neurological: Yes: WNL, Alert, Oriented ...Motor Strength: WNL Psychiatric: Yes: WNL Labs: CBC, BMP 07/24/18 05:30 07/25/18 05:30 Assessment/Plan 78 year-old man with a PMHx of HTN, asthma and systolic CHF, 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 The patient is clinically and symptomatically better. Fluid status is improved. The blood pressure needs better control. Consider starting Norvasc 5 mg daily. Salt and fluid restrictions. Continue diuretics as currently. Gradually improving.
--- NOTE | 2018-07-25 14:39 | PN ---
Progress Note, Physician Chief Complaint: AWAKE ALERT FEELING BETTER - Current Medication List Current Medications: Active Medications Acetaminophen (Tylenol -) 650 mg PO Q6H PRN PRN Reason: PAIN OR FEVER Albuterol/Ipratropium (Duoneb -) 1 amp NEB Q6H PRN PRN Reason: SHORTNESS OF BREATH Apixaban (Eliquis -) 5 mg PO BID [facility] Last Admin: 07/25/18 09:09 Dose: 5 mg Aspirin (Ecotrin -) 81 mg PO DAILY [facility] Last Admin: 07/25/18 09:09 Dose: 81 mg Atorvastatin Calcium (Lipitor -) 10 mg PO HS [facility] Last Admin: 07/24/18 21:24 Dose: 10 mg Digoxin (Lanoxin -) 0.125 mg PO DAILY [facility] Last Admin: 07/25/18 09:09 Dose: 0.125 mg Furosemide (Lasix Injection -) 40 mg IVPUSH BIDLASIX [facility] Last Admin: 07/25/18 13:18 Dose: 40 mg Insulin Aspart (Novolog Vial Sliding Scale -) 1 vial SQ [facility]; Protocol Last Admin: 07/25/18 12:26 Dose: Not Given Lisinopril (Prinivil) 40 mg PO DAILY [facility] Last Admin: 07/25/18 09:09 Dose: 40 mg Metoprolol Tartrate (Lopressor -) 50 mg PO BID [facility] Last Admin: 07/25/18 09:09 Dose: 50 mg Sitagliptin Phosphate (Januvia -) 50 mg PO DAILY@0700 [facility] Last Admin: 07/25/18 06:21 Dose: 50 mg - Objective Vital Signs: Vital Signs Temperature 97.8 F 07/25/18 13:41 Pulse Rate 70 07/25/18 13:41 Respiratory Rate 18 07/25/18 13:41 Blood Pressure 142/88 07/25/18 13:41 O2 Sat by Pulse Oximetry (%) 98 07/25/18 09:00 Constitutional: Yes: Mild Distress Eyes: Yes: WNL HENT: Yes: WNL Neck: Yes: WNL Cardiovascular: Yes: Pulse Irregular Respiratory: Yes: Diminished Gastrointestinal: Yes: WNL Genitourinary: Yes: WNL Musculoskeletal: Yes: WNL Extremities: Yes: WNL Edema: Yes Peripheral Pulses WNL: Yes Integumentary: Yes: WNL Wound/Incision: Yes: Clean/Dry Neurological: Yes: WNL ...Motor Strength: WNL Psychiatric: Yes: WNL Labs: CBC, BMP 07/24/18 05:30 07/25/18 05:30 Problem List - Problems (1) CHF (congestive heart failure) Code(s): I50.9 - HEART FAILURE, UNSPECIFIED Qualifiers: Heart failure type: systolic Heart failure chronicity: acute on chronic Qualified Code(s): I50.23 - Acute on chronic systolic (congestive) heart failure (2) Dyspnea on exertion Code(s): R06.09 - OTHER FORMS OF DYSPNEA (3) Shortness of breath Code(s): R06.02 - SHORTNESS OF BREATH (4) Asthmatic bronchitis Code(s): J45.909 - UNSPECIFIED ASTHMA, UNCOMPLICATED (5) Diabetes Code(s): E11.9 - TYPE 2 DIABETES MELLITUS WITHOUT COMPLICATIONS (6) HTN (hypertension) Code(s): I10 - ESSENTIAL (PRIMARY) HYPERTENSION (7) Obesity Code(s): E66.9 - OBESITY, UNSPECIFIED Assessment/Plan SYSTOLIC HEART FAILURE WITH REDUCED CARDIAC FUNCTION ON ELIQUIS LASIX IVP CARDIO EVAL APPRECIATED DM CONTROL ADA/BGM/SSI OOB TO CHAIR DIETARY CONSULT FOR NA/DM CONTROL LOW FAT DIET
[2018-07-25] MEDS: ATORVASTATIN CA 10 MG TABLET (FP) PO SCH (22:45)
[2018-07-26] MEDS: INSULIN SLIDING SCALE (NOVOLOG) 1 VIAL SQ SCH ×4 (06:23→21:51)
[2018-07-26] MEDS: sitaGLIPtin PHOSPHATE 50 MG TABLET PO SCH (06:26)
[2018-07-26] MEDS: FUROSEMIDE 40 MG/4 ML INJECTABLE VIAL IVPUSH SCH ×2 (06:27→13:55)
[2018-07-26] MEDS: METOPROLOL TARTRATE 50 MG TABLET (FP) PO SCH ×2 (09:16→21:51)
[2018-07-26] MEDS: DIGOXIN 0.125 MG TABLET (FP) PO SCH (09:16)
[2018-07-26] MEDS: ASPIRIN COATED 81 MG TABLET.EC PO SCH (09:16)
[2018-07-26] MEDS: LISINOPRIL 20 MG TABLET (FP) PO SCH (09:16)
[2018-07-26] MEDS: APIXABAN 5 MG TABLET PO SCH ×2 (09:16→21:51)
--- NOTE | 2018-07-26 10:25 | PN ---
Progress Note, Physician History of Present Illness: seen and examined today in [facility]. states he is feeling better and would like to go home. no overnight events. no new complaints. - Current Medication List Current Medications: Active Medications Acetaminophen (Tylenol -) 650 mg PO Q6H PRN PRN Reason: PAIN OR FEVER Albuterol/Ipratropium (Duoneb -) 1 amp NEB Q6H PRN PRN Reason: SHORTNESS OF BREATH Last Admin: 07/26/18 07:36 Dose: 1 amp Apixaban (Eliquis -) 5 mg PO BID [facility] Last Admin: 07/26/18 09:16 Dose: 5 mg Aspirin (Ecotrin -) 81 mg PO DAILY [facility] Last Admin: 07/26/18 09:16 Dose: 81 mg Atorvastatin Calcium (Lipitor -) 10 mg PO HS [facility] Last Admin: 07/25/18 22:45 Dose: 10 mg Digoxin (Lanoxin -) 0.125 mg PO DAILY [facility] Last Admin: 07/26/18 09:16 Dose: 0.125 mg Furosemide (Lasix Injection -) 40 mg IVPUSH BIDLASIX [facility] Last Admin: 07/26/18 06:27 Dose: 40 mg Insulin Aspart (Novolog Vial Sliding Scale -) 1 vial SQ ACHS [facility]; Protocol Last Admin: 07/26/18 06:23 Dose: Not Given Lisinopril (Prinivil) 40 mg PO DAILY [facility] Last Admin: 07/26/18 09:16 Dose: 40 mg Metoprolol Tartrate (Lopressor -) 50 mg PO BID [facility] Last Admin: 07/26/18 09:16 Dose: 50 mg Sitagliptin Phosphate (Januvia -) 50 mg PO DAILY@0700 [facility] Last Admin: 07/26/18 06:26 Dose: 50 mg - Objective Vital Signs: Vital Signs Temperature 97.4 F L 07/26/18 02:00 Pulse Rate 87 07/26/18 09:16 Respiratory Rate 20 07/26/18 06:00 Blood Pressure 154/100 07/26/18 06:00 O2 Sat by Pulse Oximetry (%) 95 07/26/18 09:00 Constitutional: Yes: No Distress, Calm Eyes: Yes: Conjunctiva Clear, EOM Intact HENT: Yes: Atraumatic, Normocephalic Neck: Yes: Supple, Trachea Midline Cardiovascular: Yes: Pulse Irregular, S1, S2. No: Regular Rate and Rhythm, Bradycardia, Tachycardia, Bruit, JVD, Gallop, Murmur, Rub, S3, S4, Varicosities Respiratory: Yes: Regular, CTA Bilaterally. No: Rales, Rhonchi, SOB, Wheezes Gastrointestinal: Yes: Normal Bowel Sounds, Soft. 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 CHF-acute on chronic systolic CHF -now euvolemic -transition to po Lasix -outpatient fup Afib/aflutter-HR adequately controlled -cont metoprolol which can be uptitrated if needed -on digoxin now -on eliquis -can fup as outpatient HTN-variable, above goal on average -can uptitrate metoprolol and may not need digoxin if adequate HR control with metoprolol -alternatively can add amlodipine as recc yesterday Recc close outpatient fup.
--- NOTE | 2018-07-26 10:30 | PN ---
Progress Note, Physician History of Present Illness: pulmonary alert,no distress,-cp,-sob - Current Medication List Current Medications: Active Medications Acetaminophen (Tylenol -) 650 mg PO Q6H PRN PRN Reason: PAIN OR FEVER Albuterol/Ipratropium (Duoneb -) 1 amp NEB Q6H PRN PRN Reason: SHORTNESS OF BREATH Last Admin: 07/26/18 07:36 Dose: 1 amp Apixaban (Eliquis -) 5 mg PO BID [facility] Last Admin: 07/26/18 09:16 Dose: 5 mg Aspirin (Ecotrin -) 81 mg PO DAILY [facility] Last Admin: 07/26/18 09:16 Dose: 81 mg Atorvastatin Calcium (Lipitor -) 10 mg PO HS [facility] Last Admin: 07/25/18 22:45 Dose: 10 mg Digoxin (Lanoxin -) 0.125 mg PO DAILY [facility] Last Admin: 07/26/18 09:16 Dose: 0.125 mg Furosemide (Lasix Injection -) 40 mg IVPUSH BIDLASIX [facility] Last Admin: 07/26/18 06:27 Dose: 40 mg Insulin Aspart (Novolog Vial Sliding Scale -) 1 vial SQ [facility]; Protocol Last Admin: 07/26/18 06:23 Dose: Not Given Lisinopril (Prinivil) 40 mg PO DAILY [facility] Last Admin: 07/26/18 09:16 Dose: 40 mg Metoprolol Tartrate (Lopressor -) 50 mg PO BID [facility] Last Admin: 07/26/18 09:16 Dose: 50 mg Sitagliptin Phosphate (Januvia -) 50 mg PO DAILY@0700 [facility] Last Admin: 07/26/18 06:26 Dose: 50 mg - Objective Vital Signs: Vital Signs Temperature 97.4 F L 07/26/18 02:00 Pulse Rate 87 07/26/18 09:16 Respiratory Rate 20 07/26/18 06:00 Blood Pressure 154/100 07/26/18 06:00 O2 Sat by Pulse Oximetry (%) 95 07/26/18 09:00 Constitutional: Yes: Well Nourished, Calm Eyes: Yes: WNL HENT: Yes: WNL Neck: Yes: WNL Cardiovascular: Yes: Pulse Irregular, S1, S2 Respiratory: Yes: Diminished Gastrointestinal: Yes: Normal Bowel Sounds, Soft Extremities: Yes: WNL Edema: No Problem List - Problems (1) Sleep apnea Code(s): G47.30 - SLEEP APNEA, UNSPECIFIED (2) Shortness of breath Code(s): R06.02 - SHORTNESS OF BREATH (3) Obesity Code(s): E66.9 - OBESITY, UNSPECIFIED Assessment/Plan Problem List - Problems (1) Atrial flutter by electrocardiogram Code(s): I48.92 - UNSPECIFIED ATRIAL FLUTTER (2) CHF (congestive heart failure) Code(s): I50.9 - HEART FAILURE, UNSPECIFIED Qualifiers: Heart failure type: systolic Heart failure chronicity: acute on chronic Qualified Code(s): I50.23 - Acute on chronic systolic (congestive) heart failure (3) Dyspnea on exertion Code(s): R06.09 - OTHER FORMS OF DYSPNEA (4) Diabetes Code(s): E11.9 - TYPE 2 DIABETES MELLITUS WITHOUT COMPLICATIONS (5) HTN (hypertension) Code(s): I10 - ESSENTIAL (PRIMARY) HYPERTENSION Assessment/Plan O2 TO KEP SPO2 >90% DIURETIC MONITOR DAILY WEIGHT I/O, LYTES/BUN RATE CONTROL ANTICOAGULATION TWYLA FOR HTN OUTPATIENT SLEEP STUDIES DR MURDOCK
--- NOTE | 2018-07-26 15:45 | PN ---
Progress Note, Physician Chief Complaint: AWAKE ALERT FEELING BETTER - Current Medication List Current Medications: Active Medications Acetaminophen (Tylenol -) 650 mg PO Q6H PRN PRN Reason: PAIN OR FEVER Albuterol/Ipratropium (Duoneb -) 1 amp NEB Q6H PRN PRN Reason: SHORTNESS OF BREATH Last Admin: 07/26/18 07:36 Dose: 1 amp Apixaban (Eliquis -) 5 mg PO BID [facility] Last Admin: 07/26/18 09:16 Dose: 5 mg Aspirin (Ecotrin -) 81 mg PO DAILY [facility] Last Admin: 07/26/18 09:16 Dose: 81 mg Atorvastatin Calcium (Lipitor -) 10 mg PO HS [facility] Last Admin: 07/25/18 22:45 Dose: 10 mg Digoxin (Lanoxin -) 0.125 mg PO DAILY [facility] Last Admin: 07/26/18 09:16 Dose: 0.125 mg Furosemide (Lasix Injection -) 40 mg IVPUSH BIDLASIX [facility] Last Admin: 07/26/18 13:55 Dose: 40 mg Insulin Aspart (Novolog Vial Sliding Scale -) 1 vial SQ ACHS [facility]; Protocol Last Admin: 07/26/18 11:30 Dose: Not Given Lisinopril (Prinivil) 40 mg PO DAILY [facility] Last Admin: 07/26/18 09:16 Dose: 40 mg Metoprolol Tartrate (Lopressor -) 50 mg PO BID [facility] Last Admin: 07/26/18 09:16 Dose: 50 mg Sitagliptin Phosphate (Januvia -) 50 mg PO DAILY@0700 [facility] Last Admin: 07/26/18 06:26 Dose: 50 mg - Objective Vital Signs: Vital Signs Temperature 97.6 F 07/26/18 15:28 Pulse Rate 75 07/26/18 15:28 Respiratory Rate 20 07/26/18 15:28 Blood Pressure 142/88 07/26/18 15:28 O2 Sat by Pulse Oximetry (%) 95 07/26/18 09:00 Constitutional: Yes: Mild Distress Eyes: Yes: WNL HENT: Yes: WNL Neck: Yes: WNL Cardiovascular: Yes: WNL Respiratory: Yes: WNL Gastrointestinal: Yes: WNL Genitourinary: Yes: WNL Musculoskeletal: Yes: WNL Extremities: Yes: WNL Edema: Yes Peripheral Pulses WNL: Yes Integumentary: Yes: WNL Wound/Incision: Yes: Clean/Dry Neurological: Yes: WNL ...Motor Strength: WNL Psychiatric: Yes: WNL Labs: CBC, BMP 07/24/18 05:30 07/25/18 05:30 Problem List - Problems (1) CHF (congestive heart failure) Code(s): I50.9 - HEART FAILURE, UNSPECIFIED Qualifiers: Heart failure type: systolic Heart failure chronicity: acute on chronic Qualified Code(s): I50.23 - Acute on chronic systolic (congestive) heart failure (2) Dyspnea on exertion Code(s): R06.09 - OTHER FORMS OF DYSPNEA (3) Shortness of breath Code(s): R06.02 - SHORTNESS OF BREATH (4) Asthmatic bronchitis Code(s): J45.909 - UNSPECIFIED ASTHMA, UNCOMPLICATED (5) Diabetes Code(s): E11.9 - TYPE 2 DIABETES MELLITUS WITHOUT COMPLICATIONS (6) HTN (hypertension) Code(s): I10 - ESSENTIAL (PRIMARY) HYPERTENSION (7) Obesity Code(s): E66.9 - OBESITY, UNSPECIFIED Assessment/Plan SYSTOLIC HEART FAILURE WITH REDUCED CARDIAC FUNCTION ON ELIQUIS LASIX CHANGED TO PO CARDIO EVAL APPRECIATED DM CONTROL ADA/BGM/SSI OOB TO CHAIR DIETARY CONSULT FOR NA/DM CONTROL LOW FAT DIET DC PLANNING TOMORROW
[2018-07-26] MEDS: amLODIPine BESYLATE 5 MG TABLET (FP) PO SCH (16:05)
[2018-07-26] MEDS: ATORVASTATIN CA 10 MG TABLET (FP) PO SCH (21:51)
[2018-07-27] MEDS: INSULIN SLIDING SCALE (NOVOLOG) 1 VIAL SQ SCH (06:44)
[2018-07-27] MEDS: sitaGLIPtin PHOSPHATE 50 MG TABLET PO SCH (06:48)
--- NOTE | 2018-07-27 09:54 | DS ---
Physical Examination Vital Signs: Vital Signs Temperature 97.2 F L 07/27/18 05:06 Pulse Rate 70 07/27/18 05:06 Respiratory Rate 20 07/27/18 05:06 Blood Pressure 152/88 07/27/18 05:06 O2 Sat by Pulse Oximetry (%) 94 L 07/26/18 20:26 Constitutional: Yes: No Distress Eyes: Yes: WNL HENT: Yes: WNL Neck: Yes: WNL Cardiovascular: Yes: Pulse Irregular Respiratory: Yes: WNL Gastrointestinal: Yes: WNL Musculoskeletal: Yes: WNL Extremities: Yes: WNL Edema: No Peripheral Pulses WNL: Yes Integumentary: Yes: WNL Wound/Incision: Yes: Clean/Dry Neurological: Yes: WNL ...Motor Strength: WNL Psychiatric: Yes: WNL Labs: CBC, BMP 07/24/18 05:30 07/25/18 05:30 Discharge Summary Reason For Visit: CHF Current Active Problems Atrial flutter by electrocardiogram (Acute) CHF (congestive heart failure) (Acute) Dyspnea on exertion (Acute) Shortness of breath (Acute) Sleep apnea (Acute) Procedures: Principal: CXR/LABS Hospital Course: ADMITED ACUTE ON CHRONIC CHF STARTED IV LASIX, AC AND WILL F/U OUTPATIENT Condition: Improved - Instructions Diet, Activity, Other Instructions: STOP CARVEDILOL AND START METOPROLOL SEE YOUR DOCTOR IN 2-3 DAYS Referrals: Kyler Riggs [Primary Care Provider] - Disposition: HOME - Home Medications Comprehensive Discharge Medication List: Ambulatory Orders Acetaminophen [Tylenol .Regular Strength -] 650 mg PO Q6H PRN tablet 06/15/18 Atorvastatin Ca [Lipitor] 10 mg PO HS #30 tablet 06/15/18 Furosemide [Lasix -] 40 mg PO DAILY #30 tablet 06/15/18 Lisinopril [Prinivil] 20 mg PO DAILY #30 tablet 06/15/18 Sitagliptin Phosphate [Januvia -] 50 mg PO DAILY@0700 #30 tablet 06/15/18 Acetaminophen [Tylenol .Regular Strength -] 650 mg PO Q6H PRN tablet 07/27/18 Albuterol 2.5/Ipratropium 0.5 [Duoneb -] 1 amp NEB Q6H PRN #120 amp 07/27/18 Amlodipine Besylate [Norvasc -] 5 mg PO DAILY #30 tablet 07/27/18 Apixaban [Eliquis -] 5 mg PO BID #60 tablet 07/27/18 Aspirin Coated [Ecotrin -] 81 mg PO DAILY #30 tablet.ec 07/27/18 Atorvastatin Ca [Lipitor] 10 mg PO HS tablet 07/27/18 Digoxin [Lanoxin -] 0.125 mg PO DAILY #30 tablet 07/27/18 Lisinopril [Prinivil] 40 mg PO DAILY tablet 07/27/18 Metoprolol Tartrate [Lopressor -] 50 mg PO BID #60 tablet 07/27/18 Ranolazine [Ranexa] 500 mg PO BID #60 tab.er.12h 07/27/18 Sitagliptin Phosphate [Januvia -] 50 mg PO DAILY@0700 tablet 07/27/18
[2018-07-27] MEDS: DIGOXIN 0.125 MG TABLET (FP) PO SCH (09:57)
[2018-07-27] MEDS: ASPIRIN COATED 81 MG TABLET.EC PO SCH (09:58)
[2018-07-27] MEDS: METOPROLOL TARTRATE 50 MG TABLET (FP) PO SCH (09:58)
[2018-07-27] MEDS: amLODIPine BESYLATE 5 MG TABLET (FP) PO SCH (09:58)
[2018-07-27] MEDS: LISINOPRIL 20 MG TABLET (FP) PO SCH (09:58)
[2018-07-27] MEDS: APIXABAN 5 MG TABLET PO SCH (09:58)
[2018-07-27 10:20] VITALS: BP 154/76; PULSE 70; TEMP 98
== END 2018-07-27 11:05 | disposition home or self-care (01) | DRG 308 ==
LOC: JER 10:07 → JERBED 11:32 → J4W 17:58
PROVIDERS: ADMIT Family Medicine; ATTEND Family Medicine
DX: I48.92 Unspecified atrial flutter (principal); I50.23 Acute on chronic systolic (congestive) heart failure; J44.9 Chronic obstructive pulmonary disease, unspecified; I42.8 Other cardiomyopathies; I10 Essential (primary) hypertension; I45.10 Unspecified right bundle-branch block; I11.0 Hypertensive heart disease with heart failure; E78.5 Hyperlipidemia, unspecified; R06.09 Other forms of dyspnea; E66.9 Obesity, unspecified; Z68.34 Body mass index [BMI] 34.0-34.9, adult; E11.9 Type 2 diabetes mellitus without complications; G47.33 Obstructive sleep apnea (adult) (pediatric); J45.909 Unspecified asthma, uncomplicated; I48.91 Unspecified atrial fibrillation
CPT/HCPCS: 36415; 71045-TC-FY; 80048; 80053; 80061; 80162; 81003; 81015; 82962; 83036; 83605; 83721; 83735; 83880; 84443; 85025; 85027; 87040; 87086; 93005; 93010; 94640; 99283-25

== ENCOUNTER 2018-09-22 10:42 | Emergency (ER) | payer OTHER ==
[2018-09-22] MEDS ORDERED: ALBUTEROL SO4 2.5/IPRATROPIUM 0.5 INH SOL 3 ML VIAL.NEB. NEB ONE ×3 (10:55→11:24)
[2018-09-22 11:00] VITALS: BP 170/100; PULSE 100; BMI 35.4
--- NOTE | 2018-09-22 11:17 | PDOC ---
History of Present Illness - General Chief Complaint: Shortness of Breath Stated Complaint: ASTHMA Time Seen by Provider: 09/22/18 11:13 History Source: Patient Exam Limitations: No Limitations - History of Present Illness Initial Comments: 09/22/18 11:47 Mr Rosales presents ambulatory to the ER with a complaint of "Asthma Attack" Pt has a h/o of HTN, Asthma, Systolic CHF LVEF 40-45% (likely non ischemic cardiomyopathy as pt had no stress induced ischemia on stress test on 06/14/18) , recent dx of Aflutter. Pt presents to the ER stating that he has had wheezing over the past 2 days He has been using his MDI inhaler but this has not improved his symptoms He denies chest pain He denies Lower extremity edema He denies orthopnea or PND He denies nausea, vomiting, diarrhea Tolerating po Pt does have a cough but denies sputum production He denies recent travel He denies ill contact No body aches PMH: HTN, Asthma, CHF PSH: Meds: ALL: Social: FH: ROS: GENERAL/CONSTITUTIONAL: No: fever, chills, weakness, loss of appetite. HEAD, EYES, EARS, NOSE AND THROAT: No: change in vision, ear pain, discharge, sore throat CARDIOVASCULAR: No: chest pain, lightheadedness, palpitations, syncope RESPIRATORY: Yes: cough, shortness of breath, wheezing No: hemoptysis, stridor. GASTROINTESTINAL: No: nausea, vomiting, diarrhea, abdominal pain GENITOURINARY: No: dysuria, hematuria, frequency, urgency, flank pain. MUSCULOSKELETAL: No: back pain, neck pain, joint pain, muscle swelling or pain SKIN AND BREASTS: No: lesions, pallor, rash or easy bruising. NEUROLOGIC: No: headache, vertigo, paresthesias, weakness HEMATOLOGIC/LYMPHATIC: No: anemia, easy bleeding, swelling nodes. PE: GENERAL: The patient is in no acute distress, pt currently getting a neb HEAD: Normal EYES: PERRLA, EOMI, sclera anicteric, conjunctiva clear. ENT: Ears normal, nares patent, oropharynx clear without exudates. Moist mucous membranes. NECK: Normal range of motion, supple without lymphadenopathy, JVD, or masses. LUNGS: Faint expiratory wheezing noted left lowe lung HEART:Regular rate and rhythm, normal S1 and S2 without murmur, rub or gallop. ABDOMEN: Soft, nontender, normoactive bowel sounds. No guarding, no rebound. No masses palpable. EXTREMITIES: Normal range of motion, no edema. No clubbing or cyanosis. No erythema, or tenderness. NEUROLOGICAL: Cranial nerves II through XII grossly intact. Normal speech. No focal neurological deficits. MUSCULOSKELETAL: Back non-tender to palpation SKIN: Warm, Dry, normal turgor, no rashes or lesions noted. 09/22/18 11:48 Past History - Past Medical History Allergies/Adverse Reactions: Allergies Allergy/AdvReac Type Severity Reaction Status Date / Time No Known Allergies Allergy Verified 07/23/18 10:13 Home Medications: Ambulatory Orders Lisinopril [Prinivil] 20 mg PO DAILY #30 tablet 06/15/18 Sitagliptin Phosphate [Januvia -] 50 mg PO DAILY@0700 #30 tablet 06/15/18 Acetaminophen [Tylenol .Regular Strength -] 650 mg PO Q6H PRN tablet 07/27/18 Albuterol 2.5/Ipratropium 0.5 [Duoneb -] 1 amp NEB Q6H PRN #120 amp 07/27/18 Amlodipine Besylate [Norvasc -] 5 mg PO DAILY #30 tablet 07/27/18 Apixaban [Eliquis -] 5 mg PO BID #60 tablet 07/27/18 Aspirin Coated [Ecotrin -] 81 mg PO DAILY #30 tablet.ec 07/27/18 Furosemide [Lasix] 40 mg PO DAILY #30 tablet 07/27/18 Metoprolol Tartrate [Lopressor -] 50 mg PO BID #60 tablet 07/27/18 Ranolazine [Ranexa] 500 mg PO BID #60 tab.er.12h 07/27/18 Atorvastatin Ca [Lipitor] 10 mg PO HS #30 tablet 07/28/18 Albuterol 0.083% Nebulizer Kalee [Ventolin 0.083% Nebulizer Soln -] 1 neb NEB Q6H #30 vial 09/22/18 Nebulizer and Compressor [Comp-Air Nebulizer System] 1 each MC ASDIR PRN #1 each 09/22/18 predniSONE [Deltasone -] 60 mg PO DAILY #12 tablet 09/22/18 Asthma: Yes COPD: Yes HTN: Yes - Immunization History Immunization Up to Date: Yes - Suicide/Smoking/Psychosocial Hx Smoking History: Unknown if ever smoked Hx Alcohol Use: No Drug/Substance Use Hx: No Substance Use Type: None Hx Substance Use Treatment: No *Physical Exam - Vital Signs Last Vital Signs Temp Pulse Resp BP Pulse Ox 100 H 24 H 170/100 100 09/22/18 10:59 09/22/18 10:59 09/22/18 10:59 09/22/18 10:59 Moderate Sedation - Procedure Monitoring Vital Signs: Procedure Monitoring Vital Signs Temperature Pulse Rate 100 H 09/22/18 10:59 Respiratory Rate 24 H 09/22/18 10:59 Blood Pressure 170/100 09/22/18 10:59 O2 Sat by Pulse Oximetry (%) 100 09/22/18 10:59 ED Treatment Course - LABORATORY CBC & Chemistry Diagram: 09/22/18 11:30 09/22/18 11:30 Medical Decision Making - Medical Decision Making 09/22/18 11:56 Pt presents to the ER with a complaint of shortness of breath and wheezing Pt given nebs Pt states he feels better DD includes Asthma, CHF, ACS, pneumonia Will do: Labs, CXR Nebs Prednisone EKG: NSR rate of 96 bpm, RAD, intervals abn - pr: 206ms, QRS: 148ms, QTc: 533, RBBB, LVH Consistent with prior EKG 09/22/18 11:58 09/22/18 12:22 Laboratory Tests 09/22/18 11:30 WBC 4.8 Hgb 14.1 Hct 41.5 Plt Count 207 09/22/18 13:22 Laboratory Tests 09/22/18 09/22/18 11:30 11:30 WBC 4.8 Hgb 14.1 Hct 41.5 Plt Count 207 Sodium 138 Potassium 4.4 Chloride 106 Carbon Dioxide 23 BUN 13 Creatinine 1.0 Random Glucose 108 H Creatine Kinase 326 H Creatine Kinase Index 1.3 CK-MB (CK-2) 4.4 H Troponin I 0.05 B-Natriuretic Peptide 3723.2 H 09/22/18 13:23 CXR - atalextasis right base, mild fluid in the major fissure 09/22/18 14:48 Pt states he feels much better Call placed to Dr Rosales He will see this patient in the ER Dr rosales has seen this patient in the ER Recommends he get discharged to home He will see him in the office in 2 days Pt understands reason for return to the ER *DC/Admit/Observation/Transfer Diagnosis at time of Disposition: Shortness of breath Asthma exacerbation Qualifiers: Asthma severity: mild Asthma persistence: intermittent Qualified Code(s): J45.21 - Mild intermittent asthma with (acute) exacerbation - Discharge Dispostion Disposition: HOME Condition at time of disposition: Stable Decision to Admit order: No - Prescriptions Prescriptions: Albuterol 0.083% Nebulizer Kalee [Ventolin 0.083% Nebulizer Soln -] 1 neb NEB Q6H #30 vial Nebulizer and Compressor [Comp-Air Nebulizer System] 1 each MC ASDIR PRN #1 each PRN Reason: Wheezing predniSONE [Deltasone -] 60 mg PO DAILY #12 tablet - Referrals Referrals: Kyler Riggs [Primary Care Provider] - Kory Rosales MD [Staff Physician] - - Patient Instructions Printed Discharge Instructions: DI for Shortness of Breath Additional Instructions: Thank you for coming in to the ER today Please be sure to follow up with DR ROSALES YOU may need additional testing of your heart I will give you medications for your Asthma Please feel free to return to the ER for any other concerns or complaints - Post Discharge Activity
[2018-09-22] MEDS ORDERED: predniSONE 20 MG TABLET (UD) ONE (11:24)
[2018-09-22] MEDS ORDERED: predniSONE 20 MG TABLET (UD) PO ONE (11:24)
[2018-09-22 11:46] VITALS: TEMP 97.9
[2018-09-22 11:52] LABS: BASO % 1.4 % (0-2.0); EOS % 4.6 % (0-4.5); HEMATOCRIT 41.5 % (35.4-49); HEMOGLOBIN 14.1 GM/dL (11.7-16.9); LYMPH % 39.4 % (8-40); MCH 27.3 pg (25.7-33.7); MEAN CELL VOLUME 80.1 fl (80-96); MEAN PLT VOLUME 9.8 fl (7.5-11.1); MONO % 7.8 % (3.8-10.2); NEUT % 46.8 % (42.8-82.8); PLATELET COUNT 207 K/MM3 (134-434); RBC 5.18 M/mm3 (4.00-5.60); RDW 16.4 % (11.9-15.9); WHITE BLOOD COUNT 4.8 K/mm3 (4.0-10.0)
[2018-09-22 12:30] LABS: ALBUMIN 3.6 g/dl (3.4-5.0); ALK PHOS 105 U/L (45-117); ANION GAP 8 MMOL/L (8-16); BILIRUBIN,TOTAL 1.4 mg/dL (0.2-1); BLOOD UREA NITROGEN 13 mg/dL (7-18); CALCIUM 8.6 mg/dL (8.5-10.1); CHLORIDE 106 mmol/L (98-107); CO2 23 mmol/L (21-32); GLUCOSE,RANDOM 108 mg/dL (74-106); N-TERMINAL BNP 3723.2 pg/ml (5-450); POTASSIUM 4.4 mmol/L (3.5-5.1); SGOT/AST 27 U/L (15-37); SGPT/ALT 46 U/L (13-61); SODIUM 138 mmol/L (136-145); TOT PROT 6.8 g/dl (6.4-8.2)
--- NOTE | 2018-09-22 14:13 | EKG ---
Test Reason : Blood Pressure : / mmHG Vent. Rate : 096 BPM Atrial Rate : 096 BPM P-R Int : 206 ms QRS Dur : 148 ms QT Int : 422 ms P-R-T Axes : 061 125 029 degrees QTc Int : 533 ms POOR DATA QUALITY, INTERPRETATION MAY BE ADVERSELY AFFECTED SINUS RHYTHM WITH OCCASIONAL PREMATURE VENTRICULAR COMPLEXES AND PREMATURE ATRIAL COMPLEXES RIGHT BUNDLE BRANCH BLOCK LEFT POSTERIOR FASCICULAR BLOCK BIFASCICULAR BLOCK POSSIBLE INFERIOR INFARCT (CITED ON OR BEFORE 11-JUN-2018) ABNORMAL ECG WHEN COMPARED WITH ECG OF 23-JUL-2018 10:48, SINUS RHYTHM HAS REPLACED ATRIAL FLUTTER QUESTIONABLE CHANGE IN QRS AXIS NONSPECIFIC T WAVE ABNORMALITY, IMPROVED IN INFERIOR LEADS T WAVE INVERSION NO LONGER EVIDENT IN LATERAL LEADS Confirmed by SORAIDA VO MD ([id number]) on 09/22/2018 2:12:58 PM Referred By: Confirmed By:SORAIDA VO MD
--- NOTE | 2018-09-22 15:37 | CON.CARD ---
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 In the ER was treated with bronchodilators and steroids and symptoms completely resolved. Pt seen and examined in the ER in [place]. states that he feels back to his baseline. sob resolved. denies chest pain, palpitations, pnd, orthopnea, or LE edema. - History Source History Provided By: Patient, Medical Record Limitations to Obtaining History: No Limitations - Past Medical History Cardio/Vascular: Yes: CHF, HTN, Other (Atrial flutter) Pulmonary: Yes: Asthma - Alcohol/Substance Use Hx Alcohol Use: No - Smoking History Smoking history: Unknown if ever smoked - Social History ADL: Independent History of Recent Travel: No Home Medications - Allergies Allergies/Adverse Reactions: Allergies Allergy/AdvReac Type Severity Reaction Status Date / Time No Known Allergies Allergy Verified 07/23/18 10:13 - Home Medications Home Medications: Ambulatory Orders Lisinopril [Prinivil] 20 mg PO DAILY #30 tablet 06/15/18 Sitagliptin Phosphate [Januvia -] 50 mg PO DAILY@0700 #30 tablet 06/15/18 Acetaminophen [Tylenol .Regular Strength -] 650 mg PO Q6H PRN tablet 07/27/18 Albuterol 2.5/Ipratropium 0.5 [Duoneb -] 1 amp NEB Q6H PRN #120 amp 07/27/18 Amlodipine Besylate [Norvasc -] 5 mg PO DAILY #30 tablet 07/27/18 Apixaban [Eliquis -] 5 mg PO BID #60 tablet 07/27/18 Aspirin Coated [Ecotrin -] 81 mg PO DAILY #30 tablet.ec 07/27/18 Furosemide [Lasix] 40 mg PO DAILY #30 tablet 07/27/18 Metoprolol Tartrate [Lopressor -] 50 mg PO BID #60 tablet 07/27/18 Ranolazine [Ranexa] 500 mg PO BID #60 tab.er.12h 07/27/18 Atorvastatin Ca [Lipitor] 10 mg PO HS #30 tablet 07/28/18 Albuterol 0.083% Nebulizer Kalee [Ventolin 0.083% Nebulizer Soln -] 1 neb NEB Q6H #30 vial 09/22/18 Nebulizer and Compressor [Comp-Air Nebulizer System] 1 each ASDIR PRN #1 each 09/22/18 predniSONE [Deltasone -] 60 mg PO DAILY #12 tablet 09/22/18 Family Disease History - Family Disease History Family History: Denies Review of Systems - Review of Systems Constitutional: denies: No Symptoms, Chills, Diaphoresis, Fever, Lethargy, Loss of Appetite, Malaise, Night Sweats, Unintentional Wgt. Loss, Weakness, Other Eyes: denies: No Symptoms, Blind Spots, Blurred Vision, Double Vision, Eye Pain , Floaters, Photophobia, Recent Change in Vision, Other HENT: denies: No Symptoms, Difficult Swallowing, Ear Discharge, Ear Pain, Epistaxis, Gingival Bleeding, Hearing Loss, Mouth Swelling, Nasal Congestion, Ocular Prosthesis, Throat Pain, Toothache, Ringing in Ears, Other Neck: denies: No Symptoms, Decreased ROM, Lumps, Pain on Movement, Stiffness, Swollen Glands, Tenderness, Other Cardiovascular: denies: No Symptoms, Chest Pain, Edema, Palpitations, Shortness of Breath, Other Respiratory: reports: SOB. denies: No Symptoms, Cough, Exercise Intolerance, Hemoptysis, Orthopnea, PND, Snoring, SOB on Exertion, Wheezing, Other Gastrointestinal: denies: No Symptoms, Abdominal Pain, Bloating, Constipation, Diarrhea, Dysphagia, Indigestion, Melena, Nausea, Rectal Bleeding, Vomiting, Vomiting Blood, Other Genitourinary: denies: No Symptoms, Burning, Discharge, Dysuria, Flank Pain, Frequency, Hematuria, Incontinence, Lesions, Menses, Pain, Testicular Mass, Testicular Pain, Testicular Swelling, Urgency, Vaginal Bleeding, Other Breasts: denies: No Symptoms Reported, See HPI, Breast Implants, Discharge from Nipple, Lumps, Pain, Skin Changes, Other Musculoskeletal: denies: No Symptoms, Back Pain, Crepitus, Decreased ROM, Extremity Pain, Joint Pain, Joint Swelling, Muscle Pain, Muscle Cramps, Muscle Weakness, Other Integumentary: denies: No Symptoms, Blister, Bruising, Change in Color, Eczema, Erythema, Incision, Lesions, Lump, Pallor, Pruritis, Rash, Wound, Other Neurological: denies: No Symptoms, Change in LOC, Change in Speech, Confusion, Dizziness, Headache, Incoordination, Numbness, Parasthesia, Pre-Existing Deficit , Seizure, Syncope, Tremors, Unsteady Gait, Weakness, Other Endocrine: denies: No Symptoms, Excessive Sweating, Flushing, Increased Hunger, Increased Thirst, Intolerance to Cold, Intolerance to Heat, Unexplained Weight Gain, Unexplained Weight Loss, Other Hematology/Lymphatic: denies: No Symptoms, Easily Bruised, Excessive Bleeding, Swollen Glands, Other Psychiatric: denies: No Symptoms, Altered Sleep Pattern, Anxiety, Depression, Hallucinations, Panic, Paranoia, Suicidal, Other - Risk Factors Known Risk Factors: Yes: Hypercholesterolemia, Hypertension Vital Signs: Vital Signs Temperature 97.9 F 09/22/18 11:45 Pulse Rate 100 H 09/22/18 10:59 Respiratory Rate 24 H 09/22/18 10:59 Blood Pressure 170/100 09/22/18 10:59 O2 Sat by Pulse Oximetry (%) 100 09/22/18 10:59 Constitutional: Yes: No Distress, Calm, Obese Eyes: Yes: Conjunctiva Clear, EOM Intact, PERRL HENT: Yes: Atraumatic, Normocephalic Neck: Yes: Supple, Trachea Midline Respiratory: Yes: Regular, CTA Bilaterally. No: Rales, Rhonchi, SOB, Wheezes Gastrointestinal: Yes: Normal Bowel Sounds, Soft. No: Distention, Tenderness Cardiovascular: Yes: Regular Rate and Rhythm. No: Bradycardia, Tachycardia, Pulse Irregular, Gallop, Rub, Varicosities JVD: No Carotid Bruit: No PMI: Non-Displaced Heart Sounds: Yes: S1, S2. No: Split S2, S3, S4, Clicks, Gallop, Rub, Bruit Murmur: No: Systolic Murmur, Diastolic Murmur Musculoskeletal: Yes: WNL Extremities: Yes: WNL Edema: No Peripheral Pulses WNL: Yes Peripheral Pulses: 2+ Left Doralis Pedis, 2+ Right Dorsalis Pedis Neurological: Yes: Alert, Oriented Psychiatric: Yes: Alert, Oriented - Other Data Labs, Other Data: CBC, BMP 09/22/18 11:30 09/22/18 11:30 Troponin, BNP 09/22/18 11:30 Troponin I 0.05 B-Natriuretic Peptide 3723.2 H Troponin, BNP 09/22/18 11:30 Troponin I 0.05 B-Natriuretic Peptide 3723.2 H ekg-nsr 96bpm, apc with aberrancy vs pvc, rbbb Imaging - Results Chest X-ray: Report Reviewed, Image Reviewed EKG: Report Reviewed, Image Reviewed Other: Report Reviewed, Image Reviewed Assessment/Plan 78 year-old man with a PMHx of HTN, asthma and systolic CHF, 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 In the ER was treated with bronchodilators and steroids and symptoms completely resolved. States that he feels back to his baseline. sob resolved. denies chest pain, palpitations, pnd, orthopnea, or LE edema. SOB-appears c/w pts asthma, resolved with bronchodilators and steroids, no asymptomatic -no signs of decompensated CHF or ACS at this time -lungs clear on exam, no peripheral edema -bnp is elevated but below last admission -cardiac enzymes wnl -pt acceptable for discharge home with close outpatient fup CHF-chronic systolic CHF -cont home po Lasix -outpatient fup -pt has moderate LV dysfunction, nuclear stress test 05/2018 showed no ischemia -as outpatient would consider cardiac cath for definitive evaluation of coronary anatomy Afib/aflutter-NSR on admission today -cont metoprolol -on digoxin now -on eliquis -can fup as outpatient HTN- -cont home medical regimen
== END 2018-09-22 15:38 | disposition home or self-care (01) ==
LOC: JER 10:42
PROC: 3E0F7GC Introduction of Other Therapeutic Substance into Respiratory Tract, Via Natural or Artificial Opening (ICD-10-PCS; principal; 2018-09-22)
DX: R06.02 Shortness of breath (principal); J45.21 Mild intermittent asthma with (acute) exacerbation; I10 Essential (primary) hypertension
CPT/HCPCS: 36415; 71046-TC-FY; 80053; 82550; 82553; 83880; 84484; 85025; 93005; 93010; 99282-25

== ENCOUNTER 2019-07-20 14:36 | Inpatient (IN) | payer OTHER ==
--- NOTE | 2019-07-20 14:43 | PDOC ---
Rapid Medical Evaluation Time Seen by Provider: 07/20/19 14:40 Medical Evaluation: Allergies Allergy/AdvReac Type Severity Reaction Status Date / Time No Known Allergies Allergy Verified 07/23/18 10:13 07/20/19 14:40 HPI: 2 days of dizziness and difficulty sleeping symptoms worsening general malaise PE: No gross deficits ORDERS: CT head; cardiac work up Discharge Disposition - Diagnosis Dizziness - Referrals - Patient Instructions - Post Discharge Activity
[2019-07-20] MEDS ORDERED: SODIUM CHLORIDE 1,000 ML IV SCH ×2 (14:45→16:33)
--- NOTE | 2019-07-20 15:27 | PDOC ---
History of Present Illness - General Chief Complaint: Lightheaded Stated Complaint: LIGHTHEADED Time Seen by Provider: 07/20/19 14:40 - History of Present Illness Initial Comments: 07/20/19 15:39 78y/o M hx of a.flutter on Eloquis, HtN, CHF (LVEF 05/2018 40-45%), T2DM, HLD, Asthma presenting today with 3 days of cough and weakness. He recently returned from [place] 5 days ago. Cough produces clear phlegm and he denies pleuritic chest pain or hx of clots. he has had a decreases appetite and hasn't eaten in 2 days. he denies any headache, dizziness, blurry vision, change in gait, fevers , chills, nausea, vomiting, headache, hemoptysis, chest pain, shortness of breath. 07/20/19 16:21 Past History - Past Medical History Allergies/Adverse Reactions: Allergies Allergy/AdvReac Type Severity Reaction Status Date / Time No Known Allergies Allergy Verified 07/20/19 14:44 Home Medications: Ambulatory Orders Sitagliptin Phosphate [Januvia -] 50 mg PO DAILY@0700 #30 tablet 06/15/18 Acetaminophen [Tylenol .Regular Strength -] 650 mg PO Q6H PRN tablet 07/27/18 Albuterol 2.5/Ipratropium 0.5 [Duoneb -] 1 amp NEB Q6H PRN #120 amp 07/27/18 Amlodipine Besylate [Norvasc -] 5 mg PO DAILY #30 tablet 07/27/18 Apixaban [Eliquis -] 5 mg PO BID #60 tablet 07/27/18 Aspirin Coated [Ecotrin -] 81 mg PO DAILY #30 tablet.ec 07/27/18 Furosemide [Lasix] 40 mg PO DAILY #30 tablet 07/27/18 Metoprolol Tartrate [Lopressor -] 50 mg PO BID #60 tablet 07/27/18 Ranolazine [Ranexa] 500 mg PO BID #60 tab.er.12h 07/27/18 Atorvastatin Ca [Lipitor] 10 mg PO HS #30 tablet 07/28/18 Albuterol 0.083% Nebulizer Kalee [Ventolin 0.083% Nebulizer Soln -] 1 neb NEB Q6H #30 vial 09/22/18 Nebulizer and Compressor [Comp-Air Nebulizer System] 1 each ASDIR PRN #1 each 09/22/18 Digoxin [Lanoxin -] 0.25 mg PO DAILY 07/20/19 Sacubitril/Valsartan [Entresto 49 mg-51 mg Tablet] 1 each PO BID 07/20/19 Tamsulosin HCl [Flomax] 0.4 mg PO DAILY 07/20/19 Asthma: Yes COPD: Yes Diabetes: Yes HTN: Yes - Immunization History Immunization Up to Date: Yes - Psycho Social/Smoking Cessation Hx Smoking History: Never smoked Hx Alcohol Use: No Drug/Substance Use Hx: No Substance Use Type: None Hx Substance Use Treatment: No Review of Systems - Review of Systems Constitutional: No: Chills, Fever HEENTM: No: Eye Pain, Blurred Vision Respiratory: Yes: Cough, Productive cough. No: Shortness of Breath Cardiac (ROS): No: Chest Pain, Lightheadedness ABD/GI: No: Nausea, Vomiting : No: Burning, Dysuria Musculoskeletal: No: Back Pain Integumentary: No: Bruising, Change in Color Neurological: Yes: Weakness. No: Headache, Dizziness Psychiatric: Yes: Change in Appetite *Physical Exam - Vital Signs Last Vital Signs Temp Pulse Resp BP Pulse Ox 99.2 F 69 18 137/91 98 07/20/19 14:40 07/20/19 14:40 07/20/19 14:40 07/20/19 14:40 07/20/19 14:40 - Physical Exam 07/20/19 15:43 PE: GENERAL: Awake, alert, and fully oriented, in no acute distress HEAD: No signs of trauma, normocephalic, atraumatic EYES: EOMI, sclera anicteric, conjunctiva clear ENT: Auricles normal inspection, hearing grossly normal, nares patent, oropharynx clear without exudates. Moist mucosa NECK: Normal ROM, supple, no lymphadenopathy, JVD, or masses LUNGS: No distress, speaks full sentences, clear to auscultation bilaterally HEART: Regular rate and rhythm, normal S1 and S2, no murmurs, rubs or gallops, peripheral pulses normal and equal bilaterally. ABDOMEN: Soft, nontender, normoactive bowel sounds. No guarding, no rebound. No masses EXTREMITIES : Normal inspection, Normal range of motion, fungus on toe nails. NEUROLOGICAL: Cranial nerves II through XII grossly intact. Normal speech, normal gait, no focal sensorimotor deficits SKIN: Warm, Dry, normal turgor, no rashes or lesions noted ED Treatment Course - LABORATORY CBC & Chemistry Diagram: 07/21/19 06:05 07/21/19 06:05 Medical Decision Making - Medical Decision Making 07/20/19 15:46 78y/o M hx of a.flutter on Eloquis, HtN, CHF (LVEF 05/2018 40-45%), T2DM, HLD, Asthma presenting today with 3 days of cough and weakness. EKG sinus rhythm with premature supraventricular complexes. sawtooth pattern on ekg right bundle branch block rectal temp 99.1 07/20/19 16:25 07/20/19 18:02 cardiology consulted (Dr. Herron) recommends trend troponins and serial EKG's Discharge - Discharge Information Problems reviewed: Yes Clinical Impression/Diagnosis: Dizziness Condition: Good Disposition: HOME - Follow up/Referral - Patient Discharge Instructions - Post Discharge Activity
--- NOTE | 2019-07-20 15:31 | PDOC ---
Attending Attestation - Resident Resident Name: Tiffany Germain - ED Attending Attestation I have performed the following: I have examined & evaluated the patient, The case was reviewed & discussed with the resident, I agree w/resident's findings & plan, Exceptions are as noted - HPI HPI: 07/20/19 15:51 Mr. Rosales is a yenni 78-year-old male who presents emergency department with a complaint of a funny taste in his mouth and generalized weakness He has a history of Aflutter on Eliquis, HTN, CHF (LVEF 05/2018 40-45%), NIDDM, HLD, and Asthma He recently returned from [place] (7 days ago) Over the past 3 days, he has noted generalized weakness ("my body does not feel well") and he notes that food does not taste good, therefore he has stopped eating. He is also unable to drink because, water tastes salty No fevers that he knows about No chest pain, shortness of breath, Orthopnea, GARCIA No abdominal pain, nausea, vomiting, diarrhea No dysuria No rash No headache, facial pain, rhinorrhea PMH: Asthma, DM, HTN, HLD, CHF PSH: Meds: Lisinopril, Sitagliptin, Albuterol 2.5/Ipratropium 0.5, Apixaban, Furosemide, Metoprolol, Ranolazine, Atorvastatin ALL: NKDA - Physicial Exam PE: 07/20/19 15:30 GENERAL: The patient is in no acute distress. ENT: Ears normal, nares patent, oropharynx clear without exudates. Dry mucous membranes. NECK: Normal range of motion, supple LUNGS: Breath sounds equal, clear to auscultation bilaterally. No wheezes, and no crackles. HEART: Irregular, normal rate, no murmur appreciated ABDOMEN: Soft, nontender, normoactive bowel sounds. EXTREMITIES: Normal range of motion, no edema. NEUROLOGICAL: Cranial nerves II through XII grossly intact. Normal speech. No focal neurological deficits. SKIN: Warm, Dry, normal turgor, no rashes or lesions noted. 07/20/19 16:36 - Medical Decision Making 07/20/19 16:50 Pt presents with weakness DD is broad and includes dehydration, electrolyte abn, ACS, DKA/hyperglycemia there is no focal weakness to suggest CVA/TIA Laboratory Tests 07/20/19 07/20/19 15:50 15:50 WBC 7.8 Hgb 14.1 Hct 42.6 Plt Count 169 Creatine Kinase 220 Troponin I 0.30 H 07/20/19 16:55 EKG: Aflutter rate of 81 bpm, Right axis, RBBB, no elevations or depressions Trop is elevated Will call cardiology Will plan to admit to telemetry Hyperglycemia NS already given Insulin ordered Pt remains chest pain free Clinical impression: hyperglycemia, initial presentation dehydration, initial presentation elevated troponin, initial presentation
[2019-07-20 16:31] LABS: BASO % 0.5 % (0-2.0); EOS % 0.3 % (0-4.5); HEMATOCRIT 42.6 % (35.4-49); HEMOGLOBIN 14.1 GM/dL (11.7-16.9); LYMPH % 11.2 % (8-40); MCH 27.9 pg (25.7-33.7); MCHC 33.1 g/dl (32.0-35.9); MEAN CELL VOLUME 84.4 fl (80-96); MEAN PLT VOLUME 10.7 fl (7.5-11.1); MONO % 6.4 % (3.8-10.2); NEUT % 81.6 % (42.8-82.8); PLATELET COUNT 169 K/MM3 (134-434); RBC 5.05 M/mm3 (4.00-5.60); RDW 14.7 % (11.9-15.9); WHITE BLOOD COUNT 7.8 K/mm3 (4.0-10.0)
[2019-07-20 17:27] LABS: ALBUMIN 2.6 g/dl (3.4-5.0); BILIRUBIN,TOTAL 1.5 mg/dL (0.2-1); BLOOD UREA NITROGEN 21.4 mg/dL (7-18); CALCIUM 8.3 mg/dL (8.5-10.1); CREATININE 1.5 mg/dL (0.55-1.3); N-TERMINAL BNP 728.9 pg/ml (5-450); POTASSIUM 4.6 mmol/L (3.5-5.1); TOT PROT 6.2 g/dl (6.4-8.2)
[2019-07-20] MEDS ORDERED: ALBUTEROL SO4 0.083% IH SOL 2.5 MG/3 ML VIAL.NEB. NEB PRN (18:18)
--- NOTE | 2019-07-20 18:20 | HP ---
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 States that during this time, he has had cough productive of "foam" without blood. Has been associated with generalized weakness and decreased PO intake. States that "food does not taste good." No sick contacts, or other symptoms. No SOB, chest pain or pressure. Appears comfortable, non-tachypneic and not in distress. Returned from his home country, [place] two weeks ago. Lives at home with his . Denies CHOE, fever, chills, SOB, chest pain or pressure or changes in urinary or bowel function. During this time, pt also endorses cramping in both feet. PMD: Dr. Riggs cardio: does not have one. receives meds from Dr. 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 denies cigarette, alcohol, or drug use Allergies No Known Allergies Allergy (Verified 07/20/19 14:44) PHYSICAL EXAMINATION Vital Signs - 24 hr 07/20/19 07/20/19 07/20/19 14:40 14:44 15:43 Temperature 99.2 F 99.1 F Pulse Rate 69 Respiratory 18 Rate Blood Pressure 137/91 O2 Sat by Pulse 98 97 Oximetry (%) General: resting comfortably, in NAD. not on 02 HEENT: NCAT, dry MM neck: supple cardio: +irreg irreg. no r/m/g Pulm: CTA b/l. no accessory m usage abdomen: obese, nontender, nondistended LE: trace edema. neuro: e marketing specialist 2-12 grossly intact, 5/5 motor strength UE, LE. sensation intact Laboratory Results - last 24 hr 07/20/19 07/20/19 07/20/19 15:50 15:50 15:50 WBC 7.8 RBC 5.05 Hgb 14.1 Hct 42.6 MCV 84.4 MCH 27.9 MCHC 33.1 RDW 14.7 D Plt Count 169 MPV 10.7 Absolute Neuts (auto) 6.3 Neutrophils % 81.6 D Lymphocytes % 11.2 D Monocytes % 6.4 Eosinophils % 0.3 D Basophils % 0.5 Nucleated RBC % 0 Sodium 128 L Potassium 4.6 Chloride 93 L Carbon Dioxide 23 Anion Gap 11 BUN 21.4 H Creatinine 1.5 H Est GFR (CKD-EPI)AfAm 50.59 Est GFR (CKD-EPI)NonAf 43.65 Random Glucose 494 H* Calcium 8.3 L Total Bilirubin 1.5 H AST 24 ALT 27 Alkaline Phosphatase 70 Creatine Kinase 220 Creatine Kinase Index 1.5 CK-MB (CK-2) 3.5 Troponin I 0.30 H B-Natriuretic Peptide 728.9 H Total Protein 6.2 L Albumin 2.6 L Triglycerides 218 H Cholesterol 210 H Total LDL Cholesterol 136 H HDL Cholesterol 37 L Blood Type Antibody Screen 07/20/19 15:50 WBC RBC Hgb Hct MCV MCH MCHC RDW Plt Count MPV Absolute Neuts (auto) Neutrophils % Lymphocytes % Monocytes % Eosinophils % Basophils % Nucleated RBC % Sodium Potassium Chloride Carbon Dioxide Anion Gap BUN Creatinine Est GFR (CKD-EPI)AfAm Est GFR (CKD-EPI)NonAf Random Glucose Calcium Total Bilirubin AST ALT Alkaline Phosphatase Creatine Kinase Creatine Kinase Index CK-MB (CK-2) Troponin I B-Natriuretic Peptide Total Protein Albumin Triglycerides Cholesterol Total LDL Cholesterol HDL Cholesterol Blood Type Cancelled Antibody Screen Cancelled CXR: no acute changes, ?infiltrate dev on R, mild blunting of costophrenic angle on L EKG: +aflutter (known hx), RBBB ASSESSMENT/PLAN: 78 y/o M with PMH aflutter (on eliquis), CHF (LVEF 05/2018 40-45%), likely nonischemic CM, T2DM, HLD, asthma, who presents for three day hx of cough and weakness. #Cough a/w weakness -r/o URI, may be 2/2 flu, viral PCR -however afebrile, without white count -cough frothy may be 2/2 pulm HTN, CHF -f/u flu, respiratory PCR #Tropinemia -possible at pt's baseline. -has aflutter, was d/w Dr. Herron by ER -may be also 2/2 infection. -c/t trend trop. first 0.30 -repeat ECHO, serial EKG -without active chest pain -tele monitoring #Hx CHF -repeat ECHO -c/w lasix 40mg PO qd -daily wts -i/o, na control 2g #Hx aflutter -c/w digoxin -metoprolol for rate control -on eliquis for a/c -K>4, Mg>2 #LE weakness -without incontinence, or spinal issue, saddle anesthesia, etc -likely 2/2 decreased PO intake/viral illness -f/u TSH, B12, a1c #LE spasms -f/u DVT LE #HTN -f/u amlodipine #T2DM -uncontrolled -f/u a1c -ISS, BGM ACHS #HLD -c/w statin #asthma -currently not in exacerbation -c/w ventolin nebs PRN, duonebs RQID #F/E/N no IVF at this time continue to follow lytes na controlled diet/ diabetic #PPX DVT: on eliquis #Dispo admit to telemetry Visit type - Emergency Visit Emergency Visit: No - New Patient This patient is new to me today: No - Critical Care Critical Care patient: No ATTENDING PHYSICIAN STATEMENT I saw and evaluated the patient. I reviewed the resident's note and discussed the case with the resident. I agree with the resident's findings and plan as documented. SUBJECTIVE: OBJECTIVE: ASSESSMENT AND PLAN: <Alfred Lindsay - Last Filed: 08/21/19 07:10> CHIEF COMPLAINT: PCP: HISTORY OF PRESENT ILLNESS: ER course was notable for: (1) (2) (3) Recent Travel: PAST MEDICAL HISTORY: PAST SURGICAL HISTORY: Social History: Smoking: Alcohol: Drugs: Allergies No Known Allergies Allergy (Verified 07/20/19 14:44) HOME MEDICATIONS: Home Medications Medication Instructions Recorded RX: Sitagliptin Phosphate [Januvia 50 mg PO DAILY@0700 #30 tablet 06/15/18 -] RX: Acetaminophen [Tylenol 650 mg PO Q6H PRN tablet 07/27/18 .Regular Strength -] RX: Albuterol 2.5/Ipratropium 0.5 1 amp NEB Q6H PRN #120 amp 07/27/18 [Duoneb -] RX: Amlodipine Besylate [Norvasc -] 5 mg PO DAILY #30 tablet 07/27/18 RX: Apixaban [Eliquis -] 5 mg PO BID #60 tablet 07/27/18 RX: Aspirin Coated [Ecotrin -] 81 mg PO DAILY #30 tablet.ec 07/27/18 RX: Furosemide [Lasix] 40 mg PO DAILY #30 tablet 07/27/18 RX: Metoprolol Tartrate [Lopressor 50 mg PO BID #60 tablet 07/27/18 -] RX: Ranolazine [Ranexa] 500 mg PO BID #60 tab.er.12h 07/27/18 RX: Atorvastatin Ca [Lipitor] 10 mg PO HS #30 tablet 07/28/18 RX: Albuterol 0.083% Nebulizer Kalee 1 neb NEB Q6H #30 vial 09/22/18 [Ventolin 0.083% Nebulizer Soln -] RX: Nebulizer and Compressor 1 each ASDIR PRN #1 each 09/22/18 [Comp-Air Nebulizer System] RX: Digoxin [Lanoxin -] 0.25 mg PO DAILY 07/20/19 RX: Sacubitril/Valsartan [Entresto 1 each PO BID 07/20/19 49 mg-51 mg Tablet] RX: Tamsulosin HCl [Flomax] 0.4 mg PO DAILY 07/20/19 REVIEW OF SYSTEMS CONSTITUTIONAL: Absent: fever, chills, diaphoresis, generalized weakness, malaise, loss of appetite, weight change HEENT: Absent: rhinorrhea, nasal congestion, throat pain, throat swelling, difficulty swallowing, mouth swelling, ear pain, eye pain, visual changes CARDIOVASCULAR: Absent: chest pain, syncope, palpitations, irregular heart rate, lightheadedness , peripheral edema RESPIRATORY: Absent: cough, shortness of breath, dyspnea with exertion, orthopnea, wheezing, stridor, hemoptysis GASTROINTESTINAL: Absent: abdominal pain, abdominal distension, nausea, vomiting, diarrhea, constipation, melena, hematochezia GENITOURINARY: Absent: dysuria, frequency, urgency, hesitancy, hematuria, flank pain, genital pain MUSCULOSKELETAL: Absent: myalgia, arthralgia, joint swelling, back pain, neck pain SKIN: Absent: rash, itching, pallor HEMATOLOGIC/IMMUNOLOGIC: Absent: easy bleeding, easy bruising, lymphadenopathy, frequent infections ENDOCRINE: Absent: unexplained weight gain, unexplained weight loss, heat intolerance, cold intolerance NEUROLOGIC: Absent: headache, focal weakness or paresthesias, dizziness, unsteady gait, seizure, mental status changes, bladder or bowel incontinence PSYCHIATRIC: Absent: anxiety, depression, suicidal or homicidal ideation, hallucinations. PHYSICAL EXAMINATION Vital Signs - 24 hr 07/20/19 07/20/19 07/20/19 14:40 14:44 15:43 Temperature 99.2 F 99.1 F Pulse Rate 69 Pulse Rate [ Left] Respiratory 18 Rate Blood Pressure 137/91 Blood Pressure [Left Arm] O2 Sat by Pulse 98 97 Oximetry (%) 07/20/19 07/20/19 07/20/19 19:52 22:00 22:42 Temperature 98.9 F 98.1 F 98.1 F Pulse Rate 83 80 Pulse Rate [ 83 Left] Respiratory 19 19 19 Rate Blood Pressure 119/65 Blood Pressure 127/64 [Left Arm] O2 Sat by Pulse 97 97 Oximetry (%) 07/21/19 07/21/19 02:00 06:00 Temperature 98 F 98.5 F Pulse Rate 77 79 Pulse Rate [ Left] Respiratory 22 H 21 H Rate Blood Pressure 113/73 162/83 Blood Pressure [Left Arm] O2 Sat by Pulse Oximetry (%) GENERAL: Awake, alert, and fully oriented, in no acute distress. HEAD: Normal with no signs of trauma. EYES: Pupils equal, round and reactive to light, extraocular movements intact, sclera anicteric, conjunctiva clear. No lid lag. EARS, NOSE, THROAT: Ears normal, nares patent, oropharynx clear without exudates. Moist mucous membranes. NECK: Normal range of motion, supple without lymphadenopathy, JVD, or masses. LUNGS: Breath sounds equal, clear to auscultation bilaterally. No wheezes, and no crackles. No accessory muscle use. HEART: Regular rate and rhythm, normal S1 and S2 without murmur, rub or gallop. ABDOMEN: Soft, nontender, not distended, normoactive bowel sounds, no guarding, no rebound, no masses. No hepatomegaly or splenomegaly. MUSCULOSKELETAL: Normal range of motion at all joints. No bony deformities or tenderness. No CVA tenderness. UPPER EXTREMITIES: 2+ pulses, warm, well-perfused. No cyanosis. No clubbing. No peripheral edema. LOWER EXTREMITIES: 2+ pulses, warm, well-perfused. No calf tenderness. No peripheral edema. NEUROLOGICAL: Cranial nerves II-XII intact. Normal speech. Normal gait. PSYCHIATRIC: Cooperative. Good eye contact. Appropriate mood and affect. SKIN: Warm, dry, normal turgor, no rashes or lesions noted, normal capillary refill. Laboratory Results - last 24 hr 07/20/19 07/20/19 07/20/19 15:50 15:50 15:50 WBC 7.8 RBC 5.05 Hgb 14.1 Hct 42.6 MCV 84.4 MCH 27.9 MCHC 33.1 RDW 14.7 D Plt Count 169 MPV 10.7 Absolute Neuts (auto) 6.3 Neutrophils % 81.6 D Lymphocytes % 11.2 D Monocytes % 6.4 Eosinophils % 0.3 D Basophils % 0.5 Nucleated RBC % 0 Sodium 128 L Potassium 4.6 Chloride 93 L Carbon Dioxide 23 Anion Gap 11 BUN 21.4 H Creatinine 1.5 H Est GFR (CKD-EPI)AfAm 50.59 Est GFR (CKD-EPI)NonAf 43.65 POC Glucometer Random Glucose 494 H* Hemoglobin A1c % Calcium 8.3 L Phosphorus Magnesium Total Bilirubin 1.5 H AST 24 ALT 27 Alkaline Phosphatase 70 Creatine Kinase 220 Creatine Kinase Index 1.5 CK-MB (CK-2) 3.5 Troponin I 0.30 H B-Natriuretic Peptide 728.9 H Total Protein 6.2 L Albumin 2.6 L Triglycerides 218 H Cholesterol 210 H Total LDL Cholesterol 136 H HDL Cholesterol 37 L Vitamin B12 Serum Folate TSH Thyroxine (T4) Resin T3 Uptake Urine Color Urine Appearance Urine pH Ur Specific [place] Urine Protein Urine Glucose (UA) Urine Ketones Urine Blood Urine Nitrite Urine Bilirubin Urine Urobilinogen Ur Leukocyte Esterase Urine WBC (Auto) Urine RBC (Auto) Urine Casts (Auto) U Epithel Cells (Auto) Urine Bacteria (Auto) Blood Type Antibody Screen 07/20/19 07/20/19 07/20/19 15:50 18:28 21:38 WBC RBC Hgb Hct MCV MCH MCHC RDW Plt Count MPV Absolute Neuts (auto) Neutrophils % Lymphocytes % Monocytes % Eosinophils % Basophils % Nucleated RBC % Sodium Potassium Chloride Carbon Dioxide Anion Gap BUN Creatinine Est GFR (CKD-EPI)AfAm Est GFR (CKD-EPI)NonAf POC Glucometer 446 Random Glucose Hemoglobin A1c % Calcium Phosphorus Magnesium Total Bilirubin AST ALT Alkaline Phosphatase Creatine Kinase Creatine Kinase Index CK-MB (CK-2) Troponin I B-Natriuretic Peptide Total Protein Albumin Triglycerides Cholesterol Total LDL Cholesterol HDL Cholesterol Vitamin B12 Serum Folate TSH Thyroxine (T4) Resin T3 Uptake Urine Color Urine Appearance Urine pH Ur Specific [place] Urine Protein Urine Glucose (UA) Urine Ketones Urine Blood Urine Nitrite Urine Bilirubin Urine Urobilinogen Ur Leukocyte Esterase Urine WBC (Auto) Urine RBC (Auto) Urine Casts (Auto) U Epithel Cells (Auto) Urine Bacteria (Auto) Blood Type Cancelled O POSITIVE Antibody Screen Cancelled 07/20/19 07/20/19 07/20/19 21:38 21:38 21:38 WBC RBC Hgb Hct MCV MCH MCHC RDW Plt Count MPV Absolute Neuts (auto) Neutrophils % Lymphocytes % Monocytes % Eosinophils % Basophils % Nucleated RBC % Sodium Potassium Chloride Carbon Dioxide Anion Gap BUN Creatinine Est GFR (CKD-EPI)AfAm Est GFR (CKD-EPI)NonAf POC Glucometer Random Glucose Hemoglobin A1c % 11.5 H Calcium Phosphorus Magnesium Total Bilirubin AST ALT Alkaline Phosphatase Creatine Kinase Creatine Kinase Index CK-MB (CK-2) Troponin I 0.30 H B-Natriuretic Peptide Total Protein Albumin Triglycerides Cholesterol Total LDL Cholesterol HDL Cholesterol Vitamin B12 913 Serum Folate 18 H TSH 1.63 D Thyroxine (T4) 6.3 Resin T3 Uptake 44.1 H Urine Color Urine Appearance Urine pH Ur Specific [place] Urine Protein Urine Glucose (UA) Urine Ketones Urine Blood Urine Nitrite Urine Bilirubin Urine Urobilinogen Ur Leukocyte Esterase Urine WBC (Auto) Urine RBC (Auto) Urine Casts (Auto) U Epithel Cells (Auto) Urine Bacteria (Auto) Blood Type Antibody Screen 07/20/19 07/21/19 07/21/19 22:13 02:00 06:05 WBC 6.1 RBC 4.79 Hgb 13.3 Hct 39.9 MCV 83.3 MCH 27.7 MCHC 33.3 RDW 14.7 Plt Count 145 MPV 10.0 Absolute Neuts (auto) 4.4 Neutrophils % 72.4 Lymphocytes % 19.5 D Monocytes % 7.1 Eosinophils % 0.7 D Basophils % 0.3 Nucleated RBC % 0 Sodium Potassium Chloride Carbon Dioxide Anion Gap BUN Creatinine Est GFR (CKD-EPI)AfAm Est GFR (CKD-EPI)NonAf POC Glucometer 251 Random Glucose Hemoglobin A1c % Calcium Phosphorus Magnesium Total Bilirubin AST ALT Alkaline Phosphatase Creatine Kinase Creatine Kinase Index CK-MB (CK-2) Troponin I B-Natriuretic Peptide Total Protein Albumin Triglycerides Cholesterol Total LDL Cholesterol HDL Cholesterol Vitamin B12 Serum Folate TSH Thyroxine (T4) Resin T3 Uptake Urine Color Dk yellow Urine Appearance Clear Urine pH 5.0 Ur Specific [place] 1.042 H Urine Protein Trace Urine Glucose (UA) 3+ H Urine Ketones Trace H Urine Blood Negative Urine Nitrite Negative Urine Bilirubin Negative Urine Urobilinogen 1.0 Ur Leukocyte Esterase Trace Urine WBC (Auto) 29 Urine RBC (Auto) 6 Urine Casts (Auto) 5 U Epithel Cells (Auto) 0.8 Urine Bacteria (Auto) 261.7 Blood Type Antibody Screen 07/21/19 07/21/19 06:05 06:17 WBC RBC Hgb Hct MCV MCH MCHC RDW Plt Count MPV Absolute Neuts (auto) Neutrophils % Lymphocytes % Monocytes % Eosinophils % Basophils % Nucleated RBC % Sodium 136 Potassium 3.7 Chloride 100 Carbon Dioxide 30 Anion Gap 6 L BUN 15.6 Creatinine 1.0 Est GFR (CKD-EPI)AfAm 82.60 Est GFR (CKD-EPI)NonAf 71.27 POC Glucometer 133 Random Glucose 128 H Hemoglobin A1c % Calcium 8.1 L Phosphorus 2.6 Magnesium 2.0 Total Bilirubin 1.0 AST 25 ALT 23 Alkaline Phosphatase 58 Creatine Kinase Creatine Kinase Index CK-MB (CK-2) Troponin I B-Natriuretic Peptide Total Protein 5.3 L Albumin 2.2 L Triglycerides Cholesterol Total LDL Cholesterol HDL Cholesterol Vitamin B12 Serum Folate TSH Thyroxine (T4) Resin T3 Uptake Urine Color Urine Appearance Urine pH Ur Specific [place] Urine Protein Urine Glucose (UA) Urine Ketones Urine Blood Urine [place] Urine Bilirubin Urine Urobilinogen Ur Leukocyte Esterase Urine WBC (Auto) Urine RBC (Auto) Urine Casts (Auto) U Epithel Cells (Auto) Urine Bacteria (Auto) Blood Type Antibody Screen ASSESSMENT/PLAN: Seen and examined; I agree with thee above assessment and plan and DCS as documented. Discussed with resident and indicated subspecialists. Independently verified all baez historical elements and PE features. All questions answered. No further subjective issues; patient has reached maximum benefit from hospital stay. VS labs imaging reviewed NAD, AAO HR wnl, +s1/2 NT ND +BS Neuro baseline with no new FNDs or speech changes Agreee with resident asseesment and plan as documented above. Continue current txplan. ATTENDING PHYSICIAN STATEMENT I saw and evaluated the patient. I reviewed the resident's note and discussed the case with the resident. I agree with the resident's findings and plan as documented. SUBJECTIVE: OBJECTIVE: ASSESSMENT AND PLAN:
[2019-07-20] MEDS: INSULIN SLIDING SCALE (NOVOLOG) 1 VIAL SQ SCH ×2 (18:47→22:15)
[2019-07-20] MEDS ORDERED: ALBUTEROL SO4 2.5/IPRATROPIUM 0.5 INH SOL 3 ML VIAL.NEB. NEB ONE (19:44)
[2019-07-20] MEDS: ALBUTEROL SO4 2.5/IPRATROPIUM 0.5 INH SOL 3 ML VIAL.NEB. NEB SCH (21:37)
[2019-07-20] MEDS ORDERED: ATORVASTATIN CA 10 MG TABLET (FP) PO SCH (22:00)
[2019-07-20] MEDS: APIXABAN 5 MG TABLET PO SCH (22:10)
[2019-07-20] MEDS: METOPROLOL TARTRATE 50 MG TABLET (FP) PO SCH (22:10)
[2019-07-20] MEDS: SACUBITRIL/VALSARTAN 49 MG-51 MG TABLET PO SCH (22:34)
[2019-07-20 22:53] VITALS: BMI 28.5
[2019-07-21 02:42] LABS: EPI CELLS 0.8 /HPF (0-5/HPF); HYALINE CASTS 5 /lpf (0-8); URINE APPEARANCE CLEAR; URINE BACTERIA 261.7 /hpf (NEGATIVE); URINE BILIRUBIN NEGATIVE (NEGATIVE); URINE COLOR DK YELLOW; URINE GLUCOSE (UA) 3+ (NEGATIVE); URINE KETONE TRACE (NEGATIVE); URINE LEUK ESTERASE TRACE (NEGATIVE); URINE NITRITE NEGATIVE (NEGATIVE); URINE PROTEIN TRACE (NEGATIVE); URINE RBC 6 /hpf (0-4); URINE WBC 29 /hpf (0-5)
[2019-07-21] MEDS: INSULIN SLIDING SCALE (NOVOLOG) 1 VIAL SQ SCH ×2 (06:20→12:02)
[2019-07-21 06:37] VITALS: BP 162/83; TEMP 98.5
[2019-07-21 07:12] LABS: BASO % 0.3 % (0-2.0); EOS % 0.7 % (0-4.5); HEMATOCRIT 39.9 % (35.4-49); HEMOGLOBIN 13.3 GM/dL (11.7-16.9); LYMPH % 19.5 % (8-40); MCH 27.7 pg (25.7-33.7); MCHC 33.3 g/dl (32.0-35.9); MEAN CELL VOLUME 83.3 fl (80-96); MONO % 7.1 % (3.8-10.2); NEUT % 72.4 % (42.8-82.8); PLATELET COUNT 145 K/MM3 (134-434); RBC 4.79 M/mm3 (4.00-5.60); RDW 14.7 % (11.9-15.9); WHITE BLOOD COUNT 6.1 K/mm3 (4.0-10.0)
[2019-07-21 07:31] LABS: ALBUMIN 2.2 g/dl (3.4-5.0); BLOOD UREA NITROGEN 15.6 mg/dL (7-18); CALCIUM 8.1 mg/dL (8.5-10.1); PHOSPHOROUS 2.6 mg/dL (2.5-4.9); POTASSIUM 3.7 mmol/L (3.5-5.1); TOT PROT 5.3 g/dl (6.4-8.2)
[2019-07-21] MEDS: ALBUTEROL SO4 2.5/IPRATROPIUM 0.5 INH SOL 3 ML VIAL.NEB. NEB SCH ×2 (08:50→12:50)
--- NOTE | 2019-07-21 09:54 | CON.CARD ---
Consult Consult Specialty:: Cardiology Referred by:: Hospitalist Reason for Consultation:: CHF, elevated troponin - History of Present Illness Chief Complaint: Loss of taste, cough History of Present Illness: 78 year old man with a PMH chronic aflutter (on eliquis), CHF (LVEF 05/2018 40- 45%), likely nonischemic CM, T2DM, HLD, asthma, admitted with change in sensation of taste, cough, generalized weakness. pt noted to have a mildly elevated troponin with normal CK level. troponin did not trend up. pt seen and examined today in nad. pt states he feels much better and back to his baseline. Denies any chest pain, palpitations, sob, pnd, orthopnea, or LE edema. 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 states that his PMD Dr. Riggs had sent him to [facility] approx 6 months ago for cardiology evaluation. states he had a holter monitor but no other work up. told he was ok. - History Source History Provided By: Patient Limitations to Obtaining History: Poor Historian - Past Medical History Cardio/Vascular: Yes: CHF, HTN, Other (Atrial flutter) Pulmonary: Yes: Asthma - Alcohol/Substance Use Hx Alcohol Use: No - Smoking History Smoking history: Never smoked - Social History ADL: Independent History of Recent Travel: No Home Medications - Allergies Allergies/Adverse Reactions: Allergies Allergy/AdvReac Type Severity Reaction Status Date / Time No Known Allergies Allergy Verified 07/20/19 14:44 - Home Medications Home Medications: Ambulatory Orders Sitagliptin Phosphate [Januvia -] 50 mg PO DAILY@0700 #30 tablet 06/15/18 Acetaminophen [Tylenol .Regular Strength -] 650 mg PO Q6H PRN tablet 07/27/18 Albuterol 2.5/Ipratropium 0.5 [Duoneb -] 1 amp NEB Q6H PRN #120 amp 07/27/18 Amlodipine Besylate [Norvasc -] 5 mg PO DAILY #30 tablet 07/27/18 Apixaban [Eliquis -] 5 mg PO BID #60 tablet 07/27/18 Aspirin Coated [Ecotrin -] 81 mg PO DAILY #30 tablet.ec 07/27/18 Furosemide [Lasix] 40 mg PO DAILY #30 tablet 07/27/18 Metoprolol Tartrate [Lopressor -] 50 mg PO BID #60 tablet 07/27/18 Ranolazine [Ranexa] 500 mg PO BID #60 tab.er.12h 07/27/18 Atorvastatin Ca [Lipitor] 10 mg PO HS #30 tablet 07/28/18 Albuterol 0.083% Nebulizer Kalee [Ventolin 0.083% Nebulizer Soln -] 1 neb NEB Q6H #30 vial 09/22/18 Nebulizer and Compressor [Comp-Air Nebulizer System] 1 each ASDIR PRN #1 each 09/22/18 Digoxin [Lanoxin -] 0.25 mg PO DAILY 07/20/19 Sacubitril/Valsartan [Entresto 49 mg-51 mg Tablet] 1 each PO BID 07/20/19 Tamsulosin HCl [Flomax] 0.4 mg PO DAILY 07/20/19 Family Medical History Family History: Denies Review of Systems - Review of Systems Constitutional: denies: No Symptoms, Chills, Diaphoresis, Fever, Lethargy, Loss of Appetite, Malaise, Night Sweats, Unintentional Wgt. Loss, Weakness, Other Eyes: denies: No Symptoms, Blind Spots, Blurred Vision, Double Vision, Eye Pain , Floaters, Photophobia, Recent Change in Vision, Other HENT: denies: No Symptoms, Difficult Swallowing, Ear Discharge, Ear Pain, Epistaxis, Gingival Bleeding, Hearing Loss, Mouth Swelling, Nasal Congestion, Ocular Prosthesis, Throat Pain, Toothache, Ringing in Ears, Other Neck: denies: No Symptoms, Decreased ROM, Lumps, Pain on Movement, Stiffness, Swollen Glands, Tenderness, Other Cardiovascular: denies: No Symptoms, Chest Pain, Edema, Palpitations, Shortness of Breath, Other Respiratory: reports: Cough. denies: No Symptoms, Exercise Intolerance, Hemoptysis, Orthopnea, PND, Snoring, SOB, SOB on Exertion, Wheezing, Other Gastrointestinal: denies: No Symptoms, Abdominal Pain, Bloating, Constipation, Diarrhea, Dysphagia, Indigestion, Melena, Nausea, Rectal Bleeding, Vomiting, Vomiting Blood, Other Genitourinary: denies: No Symptoms, Burning, Discharge, Dysuria, Flank Pain, Frequency, Hematuria, Incontinence, Lesions, Menses, Pain, Testicular Mass, Testicular Pain, Testicular Swelling, Urgency, Vaginal Bleeding, Other Breasts: denies: No Symptoms Reported, See HPI, Breast Implants, Discharge from Nipple, Lumps, Pain, Skin Changes, Other Musculoskeletal: denies: No Symptoms, Back Pain, Crepitus, Decreased ROM, Extremity Pain, Joint Pain, Joint Swelling, Muscle Pain, Muscle Cramps, Muscle Weakness, Other Integumentary: denies: No Symptoms, Blister, Bruising, Change in Color, Eczema, Erythema, Incision, Lesions, Lump, Pallor, Pruritis, Rash, Wound, Other Neurological: denies: No Symptoms, Change in LOC, Change in Speech, Confusion, Dizziness, Headache, Incoordination, Numbness, Parasthesia, Pre-Existing Deficit , Seizure, Syncope, Tremors, Unsteady Gait, Weakness, Other Endocrine: denies: No Symptoms, Excessive Sweating, Flushing, Increased Hunger, Increased Thirst, Intolerance to Cold, Intolerance to Heat, Unexplained Weight Gain, Unexplained Weight Loss, Other Hematology/Lymphatic: denies: No Symptoms, Easily Bruised, Excessive Bleeding, Swollen Glands, Other Psychiatric: denies: No Symptoms, Altered Sleep Pattern, Anxiety, Depression, Hallucinations, Panic, Paranoia, Suicidal, Other - Risk Factors Known Risk Factors: Yes: Diabetes Mellitus, Hypercholesterolemia, Hypertension Vital Signs: Vital Signs Temperature 98.5 F 07/21/19 06:00 Pulse Rate 79 07/21/19 06:00 Respiratory Rate 21 H 07/21/19 06:00 Blood Pressure 162/83 07/21/19 06:00 O2 Sat by Pulse Oximetry (%) 97 07/20/19 22:42 Constitutional: Yes: No Distress, Calm Eyes: Yes: Conjunctiva Clear, EOM Intact HENT: Yes: Atraumatic, Normocephalic Neck: Yes: Supple, Trachea Midline Respiratory: Yes: Regular, CTA Bilaterally. No: Rales, Rhonchi, Wheezes Gastrointestinal: Yes: Normal Bowel Sounds, Soft. No: Distention, Tenderness Cardiovascular: Yes: Regular Rate and Rhythm. No: Bradycardia, Tachycardia, Pulse Irregular, Gallop, Rub, Varicosities JVD: No Carotid Bruit: No PMI: Non-Displaced Heart Sounds: Yes: S1, S2. No: Split S2, S3, S4, Clicks, Gallop, Rub, Bruit Murmur: No: Systolic Murmur, Diastolic Murmur Edema: No Peripheral Pulses WNL: Yes Peripheral Pulses: 2+ Left Doralis Pedis, 2+ Right Dorsalis Pedis Neurological: Yes: Alert, Oriented Psychiatric: Yes: Alert, Oriented - Other Data Labs, Other Data: CBC, BMP 07/21/19 06:05 07/21/19 06:05 Troponin, BNP 07/20/19 07/20/19 07/20/19 15:50 15:50 21:38 Troponin I 0.30 H 0.30 H B-Natriuretic Peptide 728.9 H Troponin, BNP 07/20/19 07/20/19 07/20/19 15:50 15:50 21:38 Troponin I 0.30 H 0.30 H B-Natriuretic Peptide 728.9 H ekg-aflutter, hr adequate Echo: Report Reviewed Imaging - Results Chest X-ray: Report Reviewed, Image Reviewed EKG: Report Reviewed, Image Reviewed Other: Report Reviewed, Image Reviewed (tele-aflutter, HR adequately controlled) Assessment/Plan 78 year old man with a PMH chronic aflutter (on eliquis), CHF (LVEF 05/2018 40- 45%), likely nonischemic CM, T2DM, HLD, asthma, admitted with change in sensation of taste, cough, generalized weakness. pt noted to have a mildly elevated troponin with normal CK level. troponin did not trend up. pt seen and examined today in nad. pt states he feels much better and back to his baseline. Denies any chest pain, palpitations, sob, pnd, orthopnea, or LE edema. 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 states that his PMD Dr. Riggs had sent him to [facility] approx 6 months ago for cardiology evaluation. states he had a holter monitor but no other work up. told he was ok. H/o aflutter that has been HR controlled, Mild to mod LV systolic dysfunction, likely NICM -mild trop elevation with normal CK level and trop did not trend up -euvolemic, no sign of decompensated CHF -no chest pain no sob -aflutter chronic, HR controlled -no additional inpatient cardiac work up is needed at this time. -pt needs regular outpatient cardiac fup. -pt acceptable for discharge from a cardiac standpoint. -please call with any additional questions.
[2019-07-21] MEDS ORDERED: DIGOXIN 0.25 MG TABLET (FP) PO SCH (10:00)
[2019-07-21] MEDS ORDERED: amLODIPine BESYLATE 5 MG TABLET (FP) PO SCH (10:00)
[2019-07-21] MEDS ORDERED: FLU VACCINE QUAD 60 MCG/0.5 ML (MDV 19-20) IM ONE (10:00)
[2019-07-21] MEDS ORDERED: FUROSEMIDE 40 MG TABLET (FP) PO SCH (10:00)
[2019-07-21] MEDS ORDERED: TAMSULOSIN HCL 0.4 MG CAP PO SCH (10:00)
[2019-07-21] MEDS ORDERED: PT OWN MED DRAWER 7, Y5N ONE (10:22)
[2019-07-21] MEDS: SACUBITRIL/VALSARTAN 49 MG-51 MG TABLET PO SCH (10:25)
[2019-07-21] MEDS: METOPROLOL TARTRATE 50 MG TABLET (FP) PO SCH (10:25)
[2019-07-21] MEDS: APIXABAN 5 MG TABLET PO SCH (10:26)
--- NOTE | 2019-07-21 11:51 | DS ---
Physical Examination Vital Signs: Vital Signs Temperature 98.5 F 07/21/19 06:00 Pulse Rate 79 07/21/19 06:00 Respiratory Rate 21 H 07/21/19 06:00 Blood Pressure 162/83 07/21/19 06:00 O2 Sat by Pulse Oximetry (%) 97 07/20/19 22:42 Constitutional: Yes: Calm Neck: Yes: Trachea Midline Cardiovascular: Yes: Regular Rate and Rhythm, S1, S2 Respiratory: Yes: CTA Bilaterally Gastrointestinal: Yes: Normal Bowel Sounds, Soft Edema: No Neurological: Yes: Alert, Oriented Labs: CBC, BMP 07/21/19 06:05 07/21/19 06:05 Discharge Summary Problems reviewed: Yes Reason For Visit: ACUTE CORONARY SYNDROME Current Active Problems Dizziness (Acute) Fatigue (Acute) Other Procedures: head ct no acute infarct. 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 States that during this time, he has had cough productive of "foam" without blood. Has been associated with generalized weakness and decreased PO intake. States that "food does not taste good." No sick contacts, or other symptoms. No SOB, chest pain or pressure. Appears comfortable, non-tachypneic and not in distress. Returned from his [place], [place] two weeks ago. Lives at home with his . Denies CHOE, fever, chills, SOB, chest pain or pressure or changes in urinary or bowel function. addmited to telemetry seen by cardiology no acute inpatient testing needed flu shot given to patient DM uncontrolled to follow up with PMD at this time incerase januvia dose and will need close monitoring as outpatient Condition: Good - Instructions Diet, Activity, Other Instructions: You were in the hospital because you were feeling unwell. You had a cough and felt tired. Your heart enzymes were elevated. You are feeling better today, and were seen by a roller inspector and mender. Your heart enzymes are likely usually mildly elevated due to your heart condition of "atrial flutter." You are being sent home. Medications Please continue your home medications. No changes have been made to your home medications, and you are not being discharged on any new ones. Care Make sure to check your weight daily. This is important since fluctuations in your weight may mean that you need to have your water pill (lasix) dose adjusted. You will also need to be sure to avoid too much salt in your diet to help prevent symptoms. Follow up Please follow up with the following doctors upon your discharge: -Dr. Riggs - your primary care doctor - this upcoming week -Dr. Rosales, a heart doctor (roller inspector and mender)- this week to discuss your visit. You will need to follow with a roller inspector and mender routinely for your condition. Referrals: Kyler Riggs [Primary Care Provider] - 1 Week Kory Rosales MD [Staff Physician] - 1 Week Disposition: HOME - Home Medications Comprehensive Discharge Medication List: Ambulatory Orders Sitagliptin Phosphate [Januvia -] 50 mg PO DAILY@0700 #30 tablet 06/15/18 Acetaminophen [Tylenol .Regular Strength -] 650 mg PO Q6H PRN tablet 07/27/18 Albuterol 2.5/Ipratropium 0.5 [Duoneb -] 1 amp NEB Q6H PRN #120 amp 07/27/18 Amlodipine Besylate [Norvasc -] 5 mg PO DAILY #30 tablet 07/27/18 Apixaban [Eliquis -] 5 mg PO BID #60 tablet 07/27/18 Aspirin Coated [Ecotrin -] 81 mg PO DAILY #30 tablet.ec 07/27/18 Furosemide [Lasix] 40 mg PO DAILY #30 tablet 07/27/18 Metoprolol Tartrate [Lopressor -] 50 mg PO BID #60 tablet 07/27/18 Ranolazine [Ranexa] 500 mg PO BID #60 tab.er.12h 07/27/18 Atorvastatin Ca [Lipitor] 10 mg PO HS #30 tablet 07/28/18 Albuterol 0.083% Nebulizer Kalee [Ventolin 0.083% Nebulizer Soln -] 1 neb NEB Q6H #30 vial 09/22/18 Nebulizer and Compressor [Comp-Air Nebulizer System] 1 each ASDIR PRN #1 each 09/22/18 Digoxin [Lanoxin -] 0.25 mg PO DAILY 07/20/19 Sacubitril/Valsartan [Entresto 49 mg-51 mg Tablet] 1 each PO BID 07/20/19 Tamsulosin HCl [Flomax] 0.4 mg PO DAILY 07/20/19
[2019-07-21 12:06] VITALS: PULSE 70
--- NOTE | 2019-07-21 14:21 | EKG ---
Test Reason : Blood Pressure : / mmHG Vent. Rate : 070 BPM Atrial Rate : 280 BPM P-R Int : 000 ms QRS Dur : 144 ms QT Int : 432 ms P-R-T Axes : 062 133 069 degrees QTc Int : 466 ms ATRIAL FLUTTER WITH VARIABLE A-V BLOCK WITH PREMATURE VENTRICULAR OR ABERRANTLY CONDUCTED COMPLEXES RIGHT BUNDLE BRANCH BLOCK ABNORMAL ECG WHEN COMPARED WITH ECG OF 20-JUL-2019 15:31, ATRIAL FLUTTER HAS REPLACED SINUS RHYTHM Confirmed by JOSEP CONROY MD ([id number]) on 07/21/2019 2:21:11 PM Referred By: Confirmed By:JOSEP CONROY MD
--- NOTE | 2019-07-21 14:22 | EKG ---
Test Reason : Blood Pressure : / mmHG Vent. Rate : 081 BPM Atrial Rate : 081 BPM P-R Int : 192 ms QRS Dur : 154 ms QT Int : 444 ms P-R-T Axes : 065 124 059 degrees QTc Int : 515 ms ATRIAL FLUTTER WITH VARIABLE BLOCK RIGHT BUNDLE BRANCH BLOCK ABNORMAL ECG Confirmed by JOSEP CONROY MD ([id number]) on 07/21/2019 2:22:01 PM Referred By: Confirmed By:JOSEP CONROY MD
--- NOTE | 2019-07-21 14:52 | ECHO ---
Name: BERNADETTE LARISSA Exam:Adult Echocardiogram Study Date: 07/21/2019 01:43 PM Age: 78 yrs Height: 69 in Weight: 240 lb BSA: 2.2 m2 MMode/2D Measurements & Calculations IVSd: 0.84 cm Ao root diam: 3.6 cm LVIDd: 5.9 cm LA dimension: 3.8 cm LVIDs: 4.2 cm ACS: 2.1 cm LVPWd: 0.94 cm IVSs: 1.1 cm LVPWs: 1.5 cm EDV(Teich): 174.6 ml ESV(Teich): 78.5 ml Doppler Measurements & Calculations MV E max artem: 42.4 cm/sec AI P1/2t: 687.1 msec MV A max artem: 55.8 cm/sec MV E/A: 0.76 AI max artem: 329.7 cm/sec MR max artem: 439.1 cm/sec AI max P.6 mmHg MR max P.2 mmHg AI dec slope: 140.6 cm/sec2 TR max artem: 237.2 cm/sec PI end-d artem: 160.5 cm/sec TR max P.5 mmHg Med Peak E' Artem: 8.0 cm/sec Med E/e': 5.3 Lat Peak E' Artem: 7.9 cm/sec Lat E/e': 5.4 Procedure The study was technically difficult with many images being suboptimal in quality. Left Ventricle The left ventricle is mildly dilated. Left ventricular systolic function is moderately reduced. Eject ion Fraction = 40%. Patient is in atrial flutter limiting assessment of diastolic function. Regional wall motion abnormalities cannot be excluded due to limited visualization. Right Ventricle The right ventricle is grossly normal size. The right ventricular systolic function is grossly normal . Atria The left atrium is mildly dilated. Mitral Valve The mitral valve is grossly normal. There is no mitral valve stenosis. There is mild mitral regurgita tion. Tricuspid Valve The tricuspid valve is normal in structure and function. There is mild tricuspid regurgitation. Right ventricular systolic pressure is normal. Aortic Valve There is mild aortic sclerosis.;. No hemodynamically significant valvular aortic stenosis. Mild aorti c regurgitation. Pulmonic Valve The pulmonic valve is not well seen, but is grossly normal. There is no pulmonic valvular stenosis. M ild pulmonic valvular regurgitation. Great Vessels The aortic root is normal size. Pericardium/Pleura There is no pericardial effusion. Interpretation Summary The study was technically difficult with many images being suboptimal in quality. Regional wall motion abnormalities cannot be excluded due to limited visualization. Left ventricular systolic function is moderately reduced. Ejection Fraction = 40%. The left atrium is mildly dilated. There is mild mitral regurgitation. There is mild tricuspid regurgitation. Right ventricular systolic pressure is normal. Mild aortic regurgitation. There is no pericardial effusion. MD Combs *Gopal 07/21/2019 02:51 PM
== END 2019-07-21 16:47 | disposition home or self-care (01) | DRG 310 ==
LOC: JER 14:36 → JERBED 17:40 → J2W 20:48
PROVIDERS: ADMIT Internal Medicine; ATTEND Family Medicine
DX: I48.92 Unspecified atrial flutter (principal); R42 Dizziness and giddiness; E78.5 Hyperlipidemia, unspecified; J45.909 Unspecified asthma, uncomplicated; E11.9 Type 2 diabetes mellitus without complications; I45.10 Unspecified right bundle-branch block; E11.65 Type 2 diabetes mellitus with hyperglycemia; E86.0 Dehydration; I42.8 Other cardiomyopathies; I11.0 Hypertensive heart disease with heart failure; I50.9 Heart failure, unspecified
CPT/HCPCS: 36415; 70450-TC; 71045-TC-FY; 80053; 81003; 82465; 82550; 82553; 82607; 82746; 82962; 83036; 83718; 83721; 83735; 83880; 84100; 84436; 84443; 84478; 84479; 84484; 85025; 86900; 87633; 87804; 93005; 93010; 93306-TC; 93970-TC; 94640; 99285-25; G0008; J7030; Q2036

== ENCOUNTER 2020-02-21 06:16 | Day surgery (SDC) | payer OTHER ==
[2020-01-19 12:47] VITALS: BMI 34.0
[~2020-02-21 06:16] MED LIST: ACETAMINOPHEN 325 MG TABLET (FP) PO PRN; CYCLOPENTOLATE HCL 1% OPHTH SOLN 2 ML BOTTLE OP SCH; KETOROLAC TROMETHAMINE 0.5% EYE DROP 1 DROP DROPS OP SCH; OFLOXACIN 0.3% OPHTHALMIC SOLUTION 5 ML BOTTLE OP SCH; PHENYLEPHRINE 2.5% OPHTH SOLN 15 ML BOTTLE OP SCH; TROPICAMIDE 1% OPHTH SOLN 15 ML BOTTLE OP SCH
[2020-02-21] MEDS ORDERED: TROPICAMIDE 1% OPHTH SOLN 15 ML BOTTLE ONE (06:46)
[2020-02-21] MEDS ORDERED: CYCLOPENTOLATE HCL 1% OPHTH SOLN 2 ML BOTTLE ONE (06:47)
[2020-02-21] MEDS ORDERED: KETOROLAC TROMETHAMINE 0.5% EYE DROP 1 DROP DROPS ONE (06:47)
[2020-02-21] MEDS ORDERED: OFLOXACIN 0.3% OPHTHALMIC SOLUTION 5 ML BOTTLE ONE (06:47)
[2020-02-21] MEDS ORDERED: EPINEPHrine/PF 1 MG/1 ML (1:1,000) AMPULE ONE (07:16)
[2020-02-21] MEDS ORDERED: BUPIVACAINE HCL/PF 0.75% 10 ML VIAL ONE (07:17)
[2020-02-21] MEDS ORDERED: VANCOMYCIN 500 MG VIAL (RESTRICTED TO ID ONLY) ONE (07:18)
[2020-02-21] MEDS ORDERED: LIDOCAINE HCL/PF 2% SDV 5ML VIAL ONE (07:18)
[2020-02-21] MEDS ORDERED: TETRACAINE 0.5% OPHTH SOLN 2 ML BOTTLE ONE (07:19)
[2020-02-21] MEDS ORDERED: POVIDONE-IODINE 5% OPHTHALMIC PREP 30 ML SOLUTION ONE (07:19)
[2020-02-21] MEDS ORDERED: LIDOCAINE HCL/PF 1% SDV 5ML VIAL ONE (07:19)
[2020-02-21] MEDS ORDERED: WATER FOR INJ,STERILE 10 ML ONE (07:19)
== END 2020-02-21 08:30 | disposition home or self-care (01) ==
LOC: JASU-SURG 06:16
PROVIDERS: ATTEND Ophthalmology
DX: Z53.8 Procedure and treatment not carried out for other reasons (principal)
CPT/HCPCS: 82962

== ENCOUNTER 2020-03-06 06:11 | Day surgery (SDC) | payer OTHER ==
[2020-03-05 16:58] VITALS: BMI 34.0
[~2020-03-06 06:11] MED LIST changes: +BSS (NA/CA/MG/K) BALANCED SALT SOLUTION OPHTH SOLN 15 ML BOTTLE OD ONE; +BUPIVACAINE HCL/PF 0.75% 10 ML VIAL NR ONE; +CHONDROITIN SU A/HYALUR SOD 1 KIT IO ONE; +EPINEPHrine/PF 1 MG/1 ML (1:1,000) AMPULE SQ ONE; +LIDOCAINE HCL 1% PRESERVATIVE FREE - 30ML VIAL IO ONE; +LIDOCAINE HCL/PF 2% SDV 5ML VIAL INF ONE; +POVIDONE-IODINE 5% OPHTHALMIC PREP 30 ML SOLUTION OD ONE
[2020-03-06] MEDS ORDERED: CYCLOPENTOLATE HCL 1% OPHTH SOLN 2 ML BOTTLE ONE (06:25)
[2020-03-06] MEDS ORDERED: TROPICAMIDE 1% OPHTH SOLN 15 ML BOTTLE ONE (06:25)
[2020-03-06] MEDS ORDERED: KETOROLAC TROMETHAMINE 0.5% EYE DROP 1 DROP DROPS ONE (06:25)
[2020-03-06] MEDS ORDERED: OFLOXACIN 0.3% OPHTHALMIC SOLUTION 5 ML BOTTLE ONE (06:26)
[2020-03-06] MEDS ORDERED: CHONDROITIN SU A/HYALUR SOD 1 KIT ONE (07:12)
[2020-03-06] MEDS ORDERED: EPINEPHrine/PF 1 MG/1 ML (1:1,000) AMPULE ONE (07:21)
[2020-03-06] MEDS ORDERED: BUPIVACAINE HCL/PF 0.75% 10 ML VIAL ONE (07:22)
[2020-03-06] MEDS ORDERED: LIDOCAINE HCL/PF 2% SDV 5ML VIAL ONE ×2 (07:22→07:59)
[2020-03-06] MEDS ORDERED: VANCOMYCIN 500 MG VIAL (RESTRICTED TO ID ONLY) ONE (07:22)
[2020-03-06] MEDS ORDERED: WATER FOR INJ,STERILE 10 ML ONE (07:23)
[2020-03-06] MEDS ORDERED: LIDOCAINE HCL/PF 1% SDV 5ML VIAL ONE (07:23)
[2020-03-06] MEDS ORDERED: POVIDONE-IODINE 5% OPHTHALMIC PREP 30 ML SOLUTION ONE (07:23)
[2020-03-06] MEDS ORDERED: BSS (NA/CA/MG/K) BALANCED SALT SOLUTION OPHTH SOLN 15 ML BOTTLE ONE (07:23)
[2020-03-06] MEDS ORDERED: MIDAZOLAM HCL 2 MG/2 ML SINGLE DOSE VIAL ONE (07:53)
[2020-03-06] MEDS ORDERED: PROPOFOL 20 ML ONE (07:59)
[2020-03-06] MEDS ORDERED: BUPIVACAINE HCL/PF 0.75% 10 ML VIAL NR ONE (08:15)
[2020-03-06] MEDS ORDERED: LIDOCAINE HCL/PF 2% SDV 5ML VIAL INF ONE (08:15)
[2020-03-06] MEDS ORDERED: POVIDONE-IODINE 5% OPHTHALMIC PREP 30 ML SOLUTION OD ONE (08:18)
[2020-03-06] MEDS ORDERED: BSS (NA/CA/MG/K) BALANCED SALT SOLUTION OPHTH SOLN 15 ML BOTTLE OD ONE (08:23)
[2020-03-06] MEDS ORDERED: LIDOCAINE HCL 1% PRESERVATIVE FREE - 30ML VIAL IO ONE (08:23)
[2020-03-06] MEDS ORDERED: CHONDROITIN SU A/HYALUR SOD 1 KIT IO ONE (08:23)
[2020-03-06] MEDS ORDERED: EPINEPHrine/PF 1 MG/1 ML (1:1,000) AMPULE SQ ONE (08:32)
[2020-03-06 11:22] VITALS: BP 135/71; PULSE 66; TEMP 97.6
--- NOTE | 2020-03-07 09:20 | SPEC ---
DATE OF OPERATION: 03/06/2020 OPERATION: Phacoemulsification with posterior chamber intraocular lens implantation, right eye, lens used [id number], 20.5 Diopter, Serial No. [id number]. PREOPERATIVE DIAGNOSIS: Cataract right eye. POSTOPERATIVE DIAGNOSIS: Cataract right eye. SURGEON: Abundio Antonio M.D. ANESTHESIA: Peribulbar/Modified Van Lint/MAC. COMPLICATIONS: None. PROCEDURE: The patient was brought to the operating room and correctly identified along with the operative site and a correct intraocular lens cohn. The patient was then given a peribulbar block under sedation with 5 mL of a 1:1 mixture of 2% Lidocaine and 0.5% Bupivacaine. Two to 3 mL of the same mixture was given as a modified Van Lint block. The eye was then prepped and draped in the usual sterile fashion including 5% Betadine solution in the conjunctival sac and an eyelid drape. An eyelid speculum was then placed into the eye. A paracentesis port was created. Viscoelastic was injected to inflate the anterior chamber. A temporal clear corneal wound was created. A continuous circular capsulorrhexis was performed. The nucleus was then hydro-dissected and removed phacoemulsification via the [id number]-[id number]-[id number] approach. The remaining cortical material was irrigated and aspirated from the eye. Viscoelastic was injected to inflate the capsular bag. The lens was injected into the capsular bag. Viscoelastic was then irrigated and aspirated from the eye. The intraocular lens was noted to be well centered and covered by the anterior capsular border. All wounds were found to be watertight. Topical Vancomycin was given. The eye patch and shield were placed. The patient was discharged from the operating room in stable condition. ABUNDIO ANTONIO M.D. FATMATA/[id number]
== END 2020-03-06 10:30 | disposition home or self-care (01) ==
LOC: JASU-SURG 06:11
PROVIDERS: ATTEND Ophthalmology
PROC: 08RJ3JZ Replacement of Right Lens with Synthetic Substitute, Percutaneous Approach (ICD-10-PCS; principal; 2020-03-06 08:00)
DX: H26.9 Unspecified cataract (principal); I10 Essential (primary) hypertension; E11.9 Type 2 diabetes mellitus without complications
CPT/HCPCS: 82962

== ENCOUNTER 2020-03-20 06:38 | Day surgery (SDC) | payer OTHER ==
[2020-03-19 14:24] VITALS: BMI 32.5
[~2020-03-20 06:38] MED LIST changes: -ACETAMINOPHEN 325 MG TABLET (FP) PO PRN; -BSS (NA/CA/MG/K) BALANCED SALT SOLUTION OPHTH SOLN 15 ML BOTTLE OD ONE; +BSS (NA/CA/MG/K) BALANCED SALT SOLUTION OPHTH SOLN 15 ML BOTTLE OS ONE; -CYCLOPENTOLATE HCL 1% OPHTH SOLN 2 ML BOTTLE OP SCH; -KETOROLAC TROMETHAMINE 0.5% EYE DROP 1 DROP DROPS OP SCH; -OFLOXACIN 0.3% OPHTHALMIC SOLUTION 5 ML BOTTLE OP SCH; -PHENYLEPHRINE 2.5% OPHTH SOLN 15 ML BOTTLE OP SCH; -POVIDONE-IODINE 5% OPHTHALMIC PREP 30 ML SOLUTION OD ONE; +POVIDONE-IODINE 5% OPHTHALMIC PREP 30 ML SOLUTION OS ONE; +TETRACAINE 0.5% OPHTH SOLN 2 ML BOTTLE TP ONE; -TROPICAMIDE 1% OPHTH SOLN 15 ML BOTTLE OP SCH
[2020-03-20] MEDS ORDERED: CHONDROITIN SU A/HYALUR SOD 1 KIT ONE (07:06)
[2020-03-20] MEDS ORDERED: BUPIVACAINE HCL/PF 0.75% 10 ML VIAL ONE (07:15)
[2020-03-20] MEDS ORDERED: POVIDONE-IODINE 5% OPHTHALMIC PREP 30 ML SOLUTION ONE (07:16)
[2020-03-20] MEDS ORDERED: BSS (NA/CA/MG/K) BALANCED SALT SOLUTION OPHTH SOLN 15 ML BOTTLE ONE (07:16)
[2020-03-20] MEDS ORDERED: LIDOCAINE HCL/PF 1% SDV 5ML VIAL ONE (07:16)
[2020-03-20] MEDS ORDERED: LIDOCAINE HCL/PF 2% SDV 5ML VIAL ONE (07:16)
[2020-03-20] MEDS: TETRACAINE 0.5% OPHTH SOLN 2 ML BOTTLE ONE ×3 (07:30→07:43)
[2020-03-20] MEDS: TROPICAMIDE 1% OPHTH SOLN 15 ML BOTTLE ONE ×3 (07:30→07:43)
[2020-03-20] MEDS: CYCLOPENTOLATE HCL 1% OPHTH SOLN 2 ML BOTTLE ONE ×3 (07:30→07:44)
[2020-03-20] MEDS: OFLOXACIN 0.3% OPHTHALMIC SOLUTION 5 ML BOTTLE ONE ×3 (07:30→07:43)
[2020-03-20] MEDS: KETOROLAC TROMETHAMINE 0.5% EYE DROP 1 DROP DROPS ONE ×3 (07:30→07:43)
[2020-03-20] MEDS ORDERED: ACETAMINOPHEN 325 MG TABLET (FP) PO PRN (07:56)
[2020-03-20] MEDS ORDERED: OFLOXACIN 0.3% OPHTHALMIC SOLUTION 5 ML BOTTLE OP SCH (08:00)
[2020-03-20] MEDS ORDERED: KETOROLAC TROMETHAMINE 0.5% EYE DROP 1 DROP DROPS OP SCH (08:00)
[2020-03-20] MEDS ORDERED: CYCLOPENTOLATE HCL 1% OPHTH SOLN 2 ML BOTTLE OP SCH (08:00)
[2020-03-20] MEDS ORDERED: TROPICAMIDE 1% OPHTH SOLN 15 ML BOTTLE OP SCH (08:00)
[2020-03-20] MEDS ORDERED: PHENYLEPHRINE 2.5% OPHTH SOLN 15 ML BOTTLE OP SCH (08:00)
[2020-03-20] MEDS ORDERED: MIDAZOLAM HCL 2 MG/2 ML SINGLE DOSE VIAL ONE (08:39)
[2020-03-20] MEDS ORDERED: EPINEPHrine/PF 1 MG/1 ML (1:1,000) AMPULE ONE (09:13)
[2020-03-20] MEDS ORDERED: BUPIVACAINE HCL/PF 0.75% 10 ML VIAL NR ONE (10:09)
[2020-03-20] MEDS ORDERED: LIDOCAINE HCL/PF 2% SDV 5ML VIAL INF ONE (10:09)
[2020-03-20] MEDS ORDERED: TETRACAINE 0.5% OPHTH SOLN 2 ML BOTTLE TP ONE (10:11)
[2020-03-20] MEDS ORDERED: POVIDONE-IODINE 5% OPHTHALMIC PREP 30 ML SOLUTION OS ONE (10:12)
[2020-03-20] MEDS ORDERED: LIDOCAINE HCL 1% PRESERVATIVE FREE - 30ML VIAL IO ONE (10:20)
[2020-03-20] MEDS ORDERED: BSS (NA/CA/MG/K) BALANCED SALT SOLUTION OPHTH SOLN 15 ML BOTTLE OS ONE (10:20)
[2020-03-20] MEDS ORDERED: CHONDROITIN SU A/HYALUR SOD 1 KIT IO ONE (10:20)
[2020-03-20] MEDS ORDERED: EPINEPHrine/PF 1 MG/1 ML (1:1,000) AMPULE SQ ONE (10:29)
[2020-03-20 11:53] VITALS: BP 120/70; PULSE 68; TEMP 97.3
--- NOTE | 2020-03-20 19:46 | SPEC ---
DATE OF OPERATION: 03/20/2020 OPERATION: Phacoemulsification with posterior chamber intraocular lens implantation, left eye, lens used [id number], 20.5 Diopter, Serial No. [id number]. PREOPERATIVE DIAGNOSIS: Cataract left eye. POSTOPERATIVE DIAGNOSIS: Cataract left eye. SURGEON: Rocael Garica M.D. ANESTHESIA: Peribulbar/Modified Van Lint eyelid block/MAC. COMPLICATIONS: None. PROCEDURE: The patient was brought to the operating room and correctly identified along with the operative site and a correct intraocular lens cohn. The patient was then given a peribulbar block under sedation with 5 mL of a 1:1 mixture of 2% Lidocaine and 0.5% Bupivacaine. Two to 3 mL of the same mixture was given as a modified Van Lint block. The eye was then prepped and draped in the usual sterile fashion including 5% Betadine solution in the conjunctival sac and an eyelid drape. An eyelid speculum was then placed into the eye. A paracentesis port was created. Viscoelastic was injected to inflate the anterior chamber. A temporal clear corneal wound was created. A continuous circular capsulorrhexis was performed. The nucleus was then hydro-dissected and removed phacoemulsification via the adzuae-tje-yjodgym approach. The remaining cortical material was irrigated and aspirated from the eye. Viscoelastic was injected to inflate the capsular bag. The lens was injected into the capsular bag. Viscoelastic was then irrigated and aspirated from the eye. The intraocular lens was noted to be well centered and covered by the anterior capsular border. All wounds were found to be watertight. Topical Vancomycin was given. The eye patch and shield were placed. The patient was discharged from the operating room in stable condition. Gila RICK/[id number]
== END 2020-03-20 11:55 | disposition home or self-care (01) ==
LOC: JASU-SURG 06:38
PROVIDERS: ATTEND Ophthalmology
PROC: 08RK3JZ Replacement of Left Lens with Synthetic Substitute, Percutaneous Approach (ICD-10-PCS; principal; 2020-03-20 09:00)
DX: H26.9 Unspecified cataract (principal); E11.9 Type 2 diabetes mellitus without complications; I10 Essential (primary) hypertension; Z79.4 Long term (current) use of insulin
CPT/HCPCS: 82962